=== PATIENT | female | born 1945 | race Caucasian/White ===

== ENCOUNTER 2016-11-13 13:38 | Inpatient (IN) ==
[2016-11-13] MEDS ORDERED: Naloxone 0.4 MG/ML INJ IVP PRN (17:48)
[2016-11-13] MEDS ORDERED: Acetaminophen 325 MG TABLET PO PRN (17:48)
--- NOTE | 2016-11-13 17:56 | Internal Med History&Physical ---
<Yulissa Clarke - Last Filed: 11/13/16 18:38> Date of Encounter: 11/13/16 Time of Encounter: 17:56 Assessment and Plan (1) Unresponsive episode Current visit: Yes Status: Acute 1patient was found down by home health aide for unknown amount of time. Upon arrival of EMS patient's 31 core temperature was 89. Lactate was 3.9 patient was given dextrose and was rewarmed in the ER. Presently core temperature 90.8 blood sugar 107. unresponsiveness related to hypoglycemic episode We will continue to monitor blood sugars 2we will consult social work lecturer concerns about patient's ability to care for herself. She is legally blind has difficulty ambulating some suspicion that patient is giving herself insulin- 3 patient's lactate was 3.9 continue to monitor 4 we will obtain CPK- (2) Hypoglycemia Current visit: Yes Status: Acute 1 hypoglycemia has improved we will continue to monitor blood sugars 2 Accu-Cheks per sliding scale for now (3) CAD (coronary artery disease) Current visit: No Status: Chronic 1 we will continue with aspirin, Plavix and statin beta crow Qualifiers: Coronary Disease-Associated Artery/Lesion type: [place] artery [place] vs. transplanted heart: [place] heart Associated angina: without angina Qualified Code(s): I25.10 - Atherosclerotic heart disease of [place] coronary artery without angina pectoris (4) Diabetes type I Current visit: No Status: Chronic 1 presently patient's creatinine is 1.08 unsure of baseline we will continue to monitor 2 we will avoid nephrotoxins 3 monitor intake and output and daily weights Qualifiers: Diabetes mellitus complication status: with kidney complications Diabetes mellitus complication detail: with chronic kidney disease Chronic kidney disease stage: stage 3 (moderate) Qualified Code(s): E10.22 - Type 1 diabetes mellitus with diabetic chronic kidney disease; N18.3 - Chronic kidney disease, stage 3 (moderate) (5) Hypertension Current visit: Yes Status: Acute 1 we will continue with home medications Qualifiers: Hypertension type: essential hypertension Qualified Code(s): I10 - Essential (primary) hypertension (6) CKD (chronic kidney disease), stage III Current visit: Yes Status: Acute (7) Hypothermia not due to cold exposure Current visit: No Status: Chronic 1 appears hypothermia has resolved we will continue to monitor temperature (8) DVT prophylaxis Current visit: Yes Status: Acute 1 heparin subcutaneous Internal Medicine - H&P: HPI Chief complaint: Hypoglycemia Admitted From: Hospital to Hospital Transfer Plans for Post Hospital Care: Home History of present illness: Ms. Wyatt is a 70 year old female past medical history of COPD C daily CVA diabetes type 1 hypertension thyroid disease coronary artery disease with 2 stent placement CKD patient was found unresponsive with a.m. by her home health nurse upon arrival of the fire department patient had a blood glucose of 32. She was given an amp of dextrose blood sugars increased to 107. She did arouse at that time and her was confused. She was transported to [facility] for further evaluation. According to the patient she recalls awakening approximately 3 AM to go to the bathroom she does not recall anything after that time until she was in the ER. Patient is type I diabetic she states that home health aides come twice a day to give her insulin. She states she took the adequate amount of insulin last night and had a proper meal. Prior to this incident patient has been her normal state of health. She does have some difficulty ambulating and uses a walker at tonsils unsteady on her feet. She denies any recent falls. Patient is legally blind unsure if patient is giving herself insulin. She made comments stating that she listens to the clicks on the pen to know the amount of insulin to give. According to ER records upon arrival patient's core temperature was 89.6 heart rate was 62 breast per 16 171/ 65. ABG revealed pH 7.3 PCO2 52 bicarbonate 30 patient excess 4.5. Patient lactate of 3.9 troponin was less than 0.056 creatinine was 1.08. Patient's blood sugar slowly dropping back down to 76 patient admitted for further evaluation. Family requesting patient transferred [facility]. Presently patient does not appear to be in any respiratory distress she denies any chest pain at this time. She is alert oriented all simple commands. Lungs sounds are clear throughout heart sounds S1 and S2 with no rubs Jasmin murmurs noted. She is hemodynamically stable at this time.I reviewed this case with DR Dupree who agrees with plan . Past Med Surg Social Fam HX - Past Medical History Medical history: arthritis, atrial fibrillation, COPD, coronary artery disease, CVA, diabetes, glaucoma, hyperlipidemia, hypertension, osteoporosis, peripheral artery disease, renal disease, thyroid disease, syncope, TIA Psychiatric history: no psych history - Past Surgical History Surgical History: angioplasty/stent, breast surgery, cataract, vascular surgery - Social History Smoking Status: Never smoker Smokeless Tobacco Status: No Alcohol use: none Drug use: none - Additional Family History Additional family history: Reviewed noncontributory Internal Medicine - H&P: Meds Allopurinol [Zyloprim 100 MG] 100 mg PO DAILY 08/14/16 [History] Cholecalciferol (Vitamin D3) [Vitamin D] 50,000 unit PO QWEEK 08/14/16 [History] Clopidogrel [Plavix] 75 mg PO DAILY 08/14/16 [History] Cyanocobalamin (B-12) [Vitamin B12] 1,000 mcg IM QMONTH 08/14/16 [History] Furosemide [Lasix] 40 mg PO BID 08/14/16 [History] Gabapentin [Neurontin] 300 mg PO HS 08/14/16 [History] Hydrocortisone [Cortef] 0.5 tab PO BID 08/14/16 [History] Insulin ASPART [Novolog Flexpen] 10 unit SQ TIDWM 08/14/16 [History] Insulin DETEMIR [Levemir Flextouch] 18 unit SQ BID 08/14/16 [History] Levothyroxine [Synthroid] 88 mcg PO DAILY 08/14/16 [History] Metoprolol XL (24 HR) Succ [Toprol XL] 50 mg PO DAILY 08/14/16 [History] Insulin Glargine,Hum.rec.anlog [Basaglar Kwikpen U-100] 16 unit SQ BID 11/13/16 [History] Latanoprost [Xalatan] 1 drop OP HS 11/13/16 [History] Allergies adhesive tape Allergy (Verified 11/10/15 14:40) Rash insulin isophane (NPH) [From Humulin 70/30] Allergy (Verified 11/10/15 14:40) See Comments Insulin Regular [From Humulin 70/30] Allergy (Verified 11/10/15 14:40) See Comments isosorbide [From Imdur] Allergy (Verified 11/10/15 14:40) See Comments lisinopril Allergy (Verified 11/10/15 14:40) Anaphylaxis Rwfsvnw-Vts-Bgf Reductase Inhibitor [Statins] Allergy (Verified 11/10/15 14:40) See Comments All Systems PM: A 10-system review of systems was performed and is negative for pertinent findings except as documented above in the HPI. - Constitutional Constitutional: no chills, no fever(s), no night sweats - EENT Eyes: loss of vision - Cardiovascular Cardiovascular ROS IM: edema, no chest pain, no diaphoresis, no dyspnea, no lightheadedness, no palpitations, no syncope - Respiratory Respiratory: no cough, no dyspnea, no wheezing, no excessive phlegm production - Gastrointestinal Gastrointestinal: no abdominal pain, no diarrhea, no hematemesis, no hematochezia, no melena, no nausea, no vomiting - Genitourinary Genitourinary: no change in urinary stream, no dysuria, no flank pain, no hematuria - Musculoskeletal Musculoskeletal ROS IM: no numbness, no tingling - Integumentary Integumentary IM: erythema, no rash, no unusual bruising - Neurological Neurological ROS: no confusion, no convulsions, no focal weakness, no numbness, no tingling, no tremor(s) - Constitutional Vitals: Temp Pulse Resp BP Pulse Ox 98.4 F 75 16 174/65 97 11/13/16 15:36 11/13/16 15:36 11/13/16 15:36 11/13/16 15:36 11/13/16 15:36 General appearance: Present: A&O X 3, answers questions appropriately - Head Head exam: Present: atraumatic, normocephalic - Eye Eye exam: Present: conjuntiva pink, sclera anicteric - Neck Neck exam general surgery: Present: supple, trachea midline. Absent: lymphadenopathy - Respiratory Respiratory exam: Present: CTAB. Absent: accessory muscle use, rales, rhonchi, wheezes - Cardiovascular Cardiovascular exam: Present: RRR, +S1, +S2. Absent: diastolic murmur, gallop, rubs, systolic murmur - GI/Abdominal GI/Abdominal exam: Present: normal bowel sounds, soft, no peritoneal signs. Absent: distended, tenderness - Extremities Exam Extremities exam: Present: pedal edema, warm, radial pulses palpable and symetrical. Absent: calf tenderness, cyanotic - Neurological Exam Neurological exam: Present: CN II-XII intact, oriented X3, no focal deficits. Absent: pronater drift, facial droop, speech deficit - Skin Skin exam: Present: dry, erythema, intact Internal Med - H&P Results - Labs Labs: Lab work per [facility] drawn at 11 AM 11/13/2016 PH 7.3 PCO2 52 bicarbonate 30.8 Chemistry sodium 145 potassium 3.7 chloride 105 CO2 27 BUN 2021.08 glucose 96 CBC WBC 8.7 hemoglobin 12.7 hematocrit 39 platelets 263 Lactate 3.9 CRP to BNP 934 troponin less than 0.056 - EKG Data EKG shows normal: sinus rhythm - Diagnostic Studies CT scan - head Additional comments: CT of head per radiology read 10/17 no acute findings Chest x-ray Additional comments: Chest x-ray per radiology reading 11/13/2016 Mild cardiomegaly pulmonary vascular prominence no gross focal consolidation or pleural effusion <Ap Negron - Last Filed: 11/13/16 18:48> Date of Encounter: 11/13/16 Internal Medicine - H&P: HPI History of present illness: Ms. Wyatt is a 70 year old female All Systems PM: A 10-system review of systems was performed and is negative for pertinent findings except as documented above in the HPI. - Constitutional Vitals: Temp Pulse Resp BP Pulse Ox 98.4 F 75 16 174/65 97 11/13/16 15:36 11/13/16 15:36 11/13/16 15:36 11/13/16 15:36 11/13/16 15:36 Internal Med - H&P Results - Labs Labs: Cardiac Enzymes 11/13/16 Range/Units 18:10 Troponin I 0.02 (0-0.03) ng/mL - Attending Attestation I examined this patient and my medical decision-making was reviewed with the Advanced Practice Nurse. I agree with the documented findings, disposition and treatment plan as described
[2016-11-13] MEDS ORDERED: D5% in Water 1,000 ML IVC PRN (17:59)
[2016-11-13] MEDS ORDERED: Dextrose Gel 15 GM PO PRN ×2 (17:59)
[2016-11-13] MEDS ORDERED: *HR* Dextrose 50 % in Water (Syg) 50 ML SYRINGE IVP PRN (17:59)
[2016-11-13] MEDS ORDERED: Latanoprost 2.5 ML BOTTLE RIGHT EYE SCH (21:00)
[2016-11-13] MEDS: Furosemide 40 MG TABLET PO SCH (21:33)
[2016-11-13] MEDS: Gabapentin 300 MG CAPSULE PO SCH (21:33)
[2016-11-13] MEDS: Insulin LISPRO 300 UNITS/3 ML VIAL SQ SCH (21:37)
[2016-11-13] MEDS: Hydrocortisone 10 MG TABLET PO SCH (23:27)
[2016-11-14 01:08] LABS: Basophils % 0.3 %; Eosinophils # 0.1 K/mcL (0.0-0.6); Eosinophils % 1.3 %; Hematocrit 31.1 % (35.3-44.9); Immature Granulocytes % 0.8 % (0-4); Lymphocytes # 1.6 K/mcL (0.6-4.6); Lymphocytes % 18.6 %; Mean Corpuscular HGB Conc 32.2 g/dL (31.6-35.5); Mean Corpuscular Hemoglobin 28.4 pg (28.0-33.3); Mean Corpuscular Volume 88.4 fL (83.0-100.0); Mean Platelet Volume 10.6 fL (9.4-12.4); Monocytes # 0.4 K/mcL (0.0-1.3); Monocytes % 4.6 %; Neutrophils # 6.5 K/mcL (1.6-8.9); Platelet Count 232 K/mcL (140-400); Red Blood Count 3.52 M/mcL (3.82-4.97); Red Cell Distribution Width 13.2 % (11.5-14.5); Segmented Neutrophils % 74.4 %
[2016-11-14 01:21] LABS: BUN/Creatinine Ratio 21 (6-26); Blood Urea Nitrogen 20 mg/dL (7-20); Carbon Dioxide 32 mEq/L (19-29); Chloride 107 mEq/L (98-109); Glucose 121 mg/dL (70-99); Magnesium 2.1 mg/dL (1.6-2.6); Osmolality,Calculated 306 (280-300); Potassium 3.6 mEq/L (3.5-4.5); Sodium 146 mEq/L (136-145); eGFR For African Americans > 60 (> 60); eGFR For Non-African Americans 57 (> 60)
[2016-11-14] MEDS: *HR* Heparin 5,000 UNIT/ML VIAL SQ SCH ×2 (06:15→17:05)
[2016-11-14] MEDS: Hydrocortisone 10 MG TABLET PO SCH (07:33)
[2016-11-14] MEDS: Insulin LISPRO 300 UNITS/3 ML VIAL SQ SCH ×4 (07:33→21:48)
[2016-11-14] MEDS: Furosemide 40 MG TABLET PO SCH (07:34)
[2016-11-14] MEDS ORDERED: Metoprolol XL (24 HR) Succ 50 MG TAB.ER.24H PO SCH (09:00)
[2016-11-14] MEDS ORDERED: *HR* Metoprolol 5 MG/5 ML VIAL IVP SCH (12:00)
--- NOTE | 2016-11-14 12:11 | Internal Med Progress Note ---
Date of Encounter: 11/14/16 Time of Encounter: 12:10 - Assessment and plan (1) Diabetes mellitus Current Visit: Yes Status: Acute Assessment and plan: Hypoglycemia resolved pt's mental status back to baseline HbA1C: 7.5, decreased from 9.2 in May 2016 Decreased home Levemir dosing to 16units qdaily from BID continue ss insulin algorithm monitor FS and BG will readjust insulin therapy prior to her discharge. Pt states her home health aid usually gives her day dosing of insulin and she administers her bedtime insulin reports of having FS of 120 the night of the hypoglycemic episode that happened laceworker ashish requested to maximize home health services. Will closely monitor BG Qualifiers: Diabetes mellitus type: type 2 Diabetes mellitus complication status: with unspecified complications Diabetes mellitus longterm insulin use: with regional intermodal truck driver use Qualified Code(s): E11.8 - Type 2 diabetes mellitus with unspecified complications; Z79.4 - intermodal owner operator truck driver (current) use of insulin (2) Hypoglycemia Current Visit: Yes Status: Resolved (3) CAD (coronary artery disease) Current Visit: No Status: Chronic Assessment and plan: will resume home meds once patients family brings them in Qualifiers: Coronary Disease-Associated Artery/Lesion type: [place] artery [place] vs. transplanted heart: [place] heart Associated angina: without angina Qualified Code(s): I25.10 - Atherosclerotic heart disease of [place] coronary artery without angina pectoris (4) Hypertension Current Visit: Yes Status: Chronic Assessment and plan: Lopressor IV and Hydralazine prn until patient's home meds are brought in, as she continues to refuse to take the generic medications we have available in the hospital pharmacy. Pt reports of having an anaphylactic reaction to the generic brands. Qualifiers: Hypertension type: essential hypertension Qualified Code(s): I10 - Essential (primary) hypertension (5) CKD (chronic kidney disease), stage III Current Visit: Yes Status: Chronic Assessment and plan: renal function at baseline will continue to monitor (6) DVT prophylaxis Current Visit: Yes Status: Acute Assessment and plan: Heparin SQ - Subjective Interval history: Patient was seen and examined at bedside. Patient currently awake alert oriented 3. Patient states she lives alone but is close to her son and [id number] and the hypoglycemic that happened prior to her hospitalization has happened twice in the last 7 years. She states she has a good amount of home health services and is close to family due to which she would not like to change her living arrangements and is refusing longterm or assisted care living facilities. she states she has been in good health prior to this episode. She has also been refusing medications due to the Hospital pharmacy not caring the brand that she prefers. Patient is advised to bring her home medications and they will be continued after verification. Reports of feeling well at this time and denies any discomfort. - Constitutional Vitals: Temp Pulse Resp BP Pulse Ox 97.9 F 78 14 191/71 94 11/14/16 11:22 11/14/16 11:22 11/14/16 11:22 11/14/16 11:22 11/14/16 11:22 General appearance: Present: cooperative, A&O X 3, morbidly obese, pleasant, no acute distress, answers questions appropriately - Head Head exam: Present: atraumatic, normocephalic - Eye Eye exam: Present: normal appearance, conjuntiva pink, sclera anicteric - Respiratory Respiratory exam: Present: CTAB. Absent: accessory muscle use, rales, rhonchi, wheezes - Cardiovascular Cardiovascular exam: Present: RRR, +S1, +S2 - GI/Abdominal GI/Abdominal exam: Present: normal bowel sounds, soft, no peritoneal signs. Absent: distended, tenderness - Extremities Exam Extremities exam: Present: pedal edema, warm, radial pulses palpable and symetrical. Absent: calf tenderness - Neurological Exam Neurological exam: Present: alert, oriented X3 - Psychiatric Psychiatric exam: Present: normal affect, normal mood Internal Medicine: Result - Labs CBC & Chem 7: 11/14/16 00:31 11/14/16 00:31 Labs: Short CBC 11/14/16 Range/Units 00:31 WBC 8.7 (4.3-11.1) K/mcL Hgb 10.0 L (11.5-15.4) g/dL Hct 31.1 L (35.3-44.9) % Plt Count 232 (140-400) K/mcL Neutrophils # 6.5 (1.6-8.9) K/mcL BMP 11/14/16 00:31 Sodium 146 H Potassium 3.6 Chloride 107 Carbon Dioxide 32 H BUN 20 Creatinine 0.96 Glucose 121 H Calcium 9.0 Cardiac Enzymes 11/13/16 11/14/16 Range/Units 18:10 00:31 Troponin I 0.02 0.02 (0-0.03) ng/mL Consult Discharge Plan - Plan Referrals: Cindy Yeager DO [Primary Care Provider] -
[2016-11-14 12:12] LABS: Hemoglobin A1C 7.5 %
[2016-11-14] MEDS: Insulin DETEMIR 100 UNIT/ML X5UNITS SQ SCH (13:54)
[2016-11-14] MEDS ORDERED: CYANOCOBALAMIN 1000 MCG/ML IM SCH (17:45)
[2016-11-14] MEDS ORDERED: TOPROL 50 MG PO SCH (17:45)
[2016-11-14] MEDS: LASIX 40 MG PO SCH (18:48)
[2016-11-14] MEDS: CORTEF PO SCH (21:47)
[2016-11-14] MEDS: Latanoprost 2.5 ML BOTTLE LEFT EYE SCH (21:48)
[2016-11-14] MEDS: Gabapentin 300 MG CAPSULE PO SCH (21:48)
[2016-11-15 03:42] LABS: Basophils % 0.4 %; Eosinophils # 0.3 K/mcL (0.0-0.6); Eosinophils % 2.7 %; Hematocrit 30.1 % (35.3-44.9); Hemoglobin 9.6 g/dL (11.5-15.4); Immature Granulocytes % 0.4 % (0-4); Lymphocytes # 1.8 K/mcL (0.6-4.6); Mean Corpuscular HGB Conc 31.9 g/dL (31.6-35.5); Mean Corpuscular Hemoglobin 28.6 pg (28.0-33.3); Mean Corpuscular Volume 89.6 fL (83.0-100.0); Mean Platelet Volume 10.4 fL (9.4-12.4); Monocytes # 0.6 K/mcL (0.0-1.3); Monocytes % 6.5 %; Neutrophils # 6.5 K/mcL (1.6-8.9); Platelet Count 220 K/mcL (140-400); Red Blood Count 3.36 M/mcL (3.82-4.97); Red Cell Distribution Width 13.3 % (11.5-14.5)
[2016-11-15 03:55] LABS: Calcium 8.7 mg/dL (8.6-10.8); Magnesium 1.9 mg/dL (1.6-2.6); Phosphorous 3.6 mg/dL (2.3-4.7); Potassium 3.8 mEq/L (3.5-4.5)
[2016-11-15] MEDS: *HR* Heparin 5,000 UNIT/ML VIAL SQ SCH ×2 (05:50→17:11)
[2016-11-15] MEDS ORDERED: SYNTHROID 88 MCG PO SCH (06:30)
[2016-11-15] MEDS: Insulin LISPRO 300 UNITS/3 ML VIAL SQ SCH ×4 (08:07→20:49)
[2016-11-15] MEDS: LASIX 40 MG PO SCH ×2 (08:09→17:11)
[2016-11-15] MEDS: CORTEF PO SCH ×2 (08:10→20:58)
[2016-11-15] MEDS: Insulin DETEMIR 100 UNIT/ML X5UNITS SQ SCH (08:20)
[2016-11-15] MEDS ORDERED: PLAVIX 75 MG PO SCH (09:00)
[2016-11-15] MEDS ORDERED: Insulin DETEMIR 100 UNIT/ML X5UNITS SQ ONE (12:10)
--- NOTE | 2016-11-15 14:50 | Internal Med Progress Note ---
Date of Encounter: 11/15/16 Time of Encounter: 14:47 - Assessment and plan (1) Diabetes mellitus Current Visit: Yes Status: Acute Assessment and plan: Hypoglycemia resolved pt's mental status back to baseline HbA1C: 7.5, decreased from 9.2 in May 2016 Adjusted Levemir dosing as per her insulin requirements continue ss insulin algorithm monitor FS and BG will readjust insulin therapy prior to her discharge. Pt states her home health aid usually gives her day dosing of insulin and she administers her bedtime insulin gas plant worker lizal on board to maximize home health services. 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 transplanted heart: [place] heart Associated angina: without angina Qualified Code(s): I25.10 - Atherosclerotic heart disease of [place] coronary artery without angina pectoris (4) Hypertension Current Visit: Yes Status: Chronic Assessment and plan: Restarted home meds Hydralazine 10mg IV q6h PRN SBP>160 Qualifiers: Hypertension type: essential hypertension Qualified Code(s): I10 - Essential (primary) hypertension (5) CKD (chronic kidney disease), stage III Current Visit: Yes Status: Chronic Assessment and plan: renal function at baseline will continue to monitor (6) DVT prophylaxis Current Visit: Yes Status: Acute Assessment and plan: Heparin SQ - Subjective Interval history: Patient was seen and examined at bedside. Reports of feeling significantly better. Good urine output noted and she reports of having difficulty with urinating at home. will d/c arnold catheter. If fails to appropriately void, patient will be discharged with arnold cath noted to be hyperglycemic, insulin regimen adjusted accordingly will observe BG for another 24 hours likely d/c in am - Constitutional Vitals: Temp Pulse Resp BP Pulse Ox 98.3 F 72 16 179/74 96 11/15/16 11:04 11/15/16 11:04 11/15/16 11:04 11/15/16 11:04 11/15/16 11:04 General appearance: Present: cooperative, A&O X 3, morbidly obese, pleasant, no acute distress, answers questions appropriately - Head Head exam: Present: atraumatic, normocephalic - Eye Eye exam: Present: normal appearance, conjuntiva pink, sclera anicteric - Respiratory Respiratory exam: Present: CTAB. Absent: respiratory distress, wheezes - Cardiovascular Cardiovascular exam: Present: RRR, +S1, +S2. Absent: diastolic murmur, gallop, rubs, systolic murmur - GI/Abdominal GI/Abdominal exam: Present: normal bowel sounds, soft, no peritoneal signs. Absent: distended, tenderness - Extremities Exam Extremities exam: Present: pedal edema, warm, radial pulses palpable and symetrical. Absent: calf tenderness - Neurological Exam Neurological exam: Present: alert, oriented X3 - Psychiatric Psychiatric exam: Present: normal affect, normal mood Internal Medicine: Result - Labs CBC & Chem 7: 11/15/16 03:29 11/15/16 03:29 Labs: Short CBC 11/15/16 Range/Units 03:29 WBC 9.2 (4.3-11.1) K/mcL Hgb 9.6 L (11.5-15.4) g/dL Hct 30.1 L (35.3-44.9) % Plt Count 220 (140-400) K/mcL Neutrophils # 6.5 (1.6-8.9) K/mcL BMP 11/15/16 03:29 Sodium 140 Potassium 3.8 Chloride 102 Carbon Dioxide 31 H BUN 29 H Creatinine 1.27 H Glucose 266 H Calcium 8.7 Consult Discharge Plan - Plan Referrals: Cindy Yeager DO [Primary Care Provider] - (web request 11/14/16)
[2016-11-15] MEDS: TOPROL 50 MG PO SCH (20:59)
[2016-11-15] MEDS: Gabapentin 300 MG CAPSULE PO SCH (20:59)
[2016-11-15] MEDS: Sennosides/Docusate Sodium TABLET PO SCH (20:59)
[2016-11-15] MEDS: PLAVIX 75 MG PO SCH (20:59)
[2016-11-15] MEDS: Latanoprost 2.5 ML BOTTLE LEFT EYE SCH (21:00)
[2016-11-16 03:27] LABS: Basophils % 0.5 %; Eosinophils # 0.2 K/mcL (0.0-0.6); Eosinophils % 2.6 %; Hematocrit 28.9 % (35.3-44.9); Hemoglobin 9.1 g/dL (11.5-15.4); Immature Granulocytes % 0.8 % (0-4); Lymphocytes # 1.8 K/mcL (0.6-4.6); Lymphocytes % 20.2 %; Mean Corpuscular HGB Conc 31.5 g/dL (31.6-35.5); Mean Corpuscular Volume 88.9 fL (83.0-100.0); Mean Platelet Volume 10.6 fL (9.4-12.4); Monocytes # 0.7 K/mcL (0.0-1.3); Monocytes % 7.5 %; Neutrophils # 5.9 K/mcL (1.6-8.9); Platelet Count 221 K/mcL (140-400); Red Blood Count 3.25 M/mcL (3.82-4.97); Red Cell Distribution Width 13.2 % (11.5-14.5); Segmented Neutrophils % 68.4 %
[2016-11-16 03:34] LABS: Calcium 8.8 mg/dL (8.6-10.8); Magnesium 2.1 mg/dL (1.6-2.6); Phosphorous 4.1 mg/dL (2.3-4.7); Potassium 3.7 mEq/L (3.5-4.5)
[2016-11-16] MEDS: *HR* Heparin 5,000 UNIT/ML VIAL SQ SCH ×2 (05:46→16:15)
[2016-11-16] MEDS: SYNTHROID 88 MCG PO SCH (05:47)
[2016-11-16] MEDS: Sennosides/Docusate Sodium TABLET PO SCH ×2 (07:43→21:15)
[2016-11-16] MEDS: Insulin LISPRO 300 UNITS/3 ML VIAL SQ SCH ×4 (07:43→21:18)
[2016-11-16] MEDS: CORTEF PO SCH ×2 (07:44→21:17)
[2016-11-16] MEDS: LASIX 40 MG PO SCH (07:44)
[2016-11-16] MEDS ORDERED: Cyanocobalamin (B-12) 1,000 MCG/ML VIAL IM SCH ×2 (09:00)
[2016-11-16] MEDS ORDERED: Insulin DETEMIR 100 UNIT/ML X5UNITS SQ SCH (09:00)
--- NOTE | 2016-11-16 09:55 | Internal Med Progress Note ---
Date of Encounter: 11/16/16 Time of Encounter: 09:54 - Assessment and plan (1) Diabetes mellitus Current Visit: Yes Status: Acute Assessment and plan: Hypoglycemia resolved pt's mental status back to baseline HbA1C: 7.5, decreased from 9.2 in May 2016 Adjusted Levemir dosing as per her insulin requirements (increased to Levemir 40units qdaily) continue ss insulin algorithm monitor FS and BG will readjust insulin therapy prior to her discharge. Pt states her home health aid usually gives her day dosing of insulin and she administers her bedtime insulin brush worker ashish on board, ECF placement process initiated Will closely monitor BG Qualifiers: Diabetes mellitus type: type 2 Diabetes mellitus complication status: with unspecified complications Diabetes mellitus assistant terminal manager insulin use: with skilled nursing use Qualified Code(s): E11.8 - Type 2 diabetes mellitus with unspecified complications; Z79.4 - half-way (current) use of insulin (2) Hypoglycemia Current Visit: Yes Status: Resolved (3) CAD (coronary artery disease) Current Visit: No Status: Chronic Assessment and plan: continue home medications Qualifiers: Coronary Disease-Associated Artery/Lesion type: [place] artery [place] vs. transplanted heart: [place] heart Associated angina: without angina Qualified Code(s): I25.10 - Atherosclerotic heart disease of [place] coronary artery without angina pectoris (4) Hypertension Current Visit: Yes Status: Chronic Assessment and plan: BP within acceptable range continue home meds Hydralazine 10mg IV q6h PRN SBP>160 Qualifiers: Hypertension type: essential hypertension Qualified Code(s): I10 - Essential (primary) hypertension (5) CKD (chronic kidney disease), stage III Current Visit: Yes Status: Chronic Assessment and plan: renal function worsened from previous day will hold Lasix at this time patients urinary retention can also be contributing to her renal function will closely monitor Arnold placement if patient is unable to void or noted to have high post voidal volume on bladder scan (6) DVT prophylaxis Current Visit: Yes Status: Acute Assessment and plan: Heparin SQ - Subjective Interval history: Patient was seen and examined at bedside. Resting in chair and reports of feeling better. Noted to have urinary retention overnight requiring straight catheterization. Will closely monitor today, if unable to void adequately, will place arnold cath. Noted to be hyperglycemic requiring 36units of additional insulin coverage. Pt will to consider ECF at this time. delinquency prevention social worker evaluation requested for ECF placement - Constitutional Vitals: Temp Pulse Resp BP Pulse Ox 99.0 F 70 16 150/73 92 11/16/16 07:24 11/16/16 07:24 11/16/16 07:24 11/16/16 07:24 11/16/16 07:24 General appearance: Present: cooperative, A&O X 3, morbidly obese, pleasant, no acute distress, answers questions appropriately - Head Head exam: Present: atraumatic, normocephalic - Respiratory Respiratory exam: Present: CTAB. Absent: respiratory distress, wheezes - Cardiovascular Cardiovascular exam: Present: RRR, +S1, +S2 - GI/Abdominal GI/Abdominal exam: Present: normal bowel sounds, soft. Absent: tenderness - Extremities Exam Extremities exam: Present: pedal edema, warm, radial pulses palpable and symetrical. Absent: calf tenderness - Neurological Exam Neurological exam: Present: alert, oriented X3 - Psychiatric Psychiatric exam: Present: normal affect, normal mood Internal Medicine: Result - Labs CBC & Chem 7: 11/16/16 03:00 11/16/16 03:00 Labs: Short CBC 11/16/16 Range/Units 03:00 WBC 8.7 (4.3-11.1) K/mcL Hgb 9.1 L (11.5-15.4) g/dL Hct 28.9 L (35.3-44.9) % Plt Count 221 (140-400) K/mcL Neutrophils # 5.9 (1.6-8.9) K/mcL BMP 11/16/16 03:00 Sodium 142 Potassium 3.7 Chloride 101 Carbon Dioxide 32 H BUN 38 H Creatinine 1.52 H Glucose 200 H Calcium 8.8 Consult Discharge Plan - Plan Referrals: Cindy Yeager DO [Primary Care Provider] - 11/21/16 1:00 pm (web request )
[2016-11-16] MEDS: Insulin DETEMIR 100 UNIT/ML X5UNITS SQ SCH (09:56)
[2016-11-16] MEDS: Gabapentin 300 MG CAPSULE PO SCH (21:16)
[2016-11-16] MEDS: PLAVIX 75 MG PO SCH (21:17)
[2016-11-16] MEDS: Latanoprost 2.5 ML BOTTLE LEFT EYE SCH (21:21)
[2016-11-16] MEDS: TOPROL 50 MG PO SCH (21:22)
[2016-11-17] MEDS: SYNTHROID 88 MCG PO SCH (05:38)
[2016-11-17] MEDS: *HR* Heparin 5,000 UNIT/ML VIAL SQ SCH (05:38)
[2016-11-17 06:55] LABS: Basophils # 0.1 K/mcL (0.0-0.2); Basophils % 0.5 %; Eosinophils # 0.2 K/mcL (0.0-0.6); Eosinophils % 2.5 %; Hematocrit 29.1 % (35.3-44.9); Hemoglobin 9.4 g/dL (11.5-15.4); Immature Granulocytes % 0.7 % (0-4); Lymphocytes # 1.8 K/mcL (0.6-4.6); Lymphocytes % 18.7 %; Mean Corpuscular HGB Conc 32.3 g/dL (31.6-35.5); Mean Corpuscular Hemoglobin 28.7 pg (28.0-33.3); Mean Corpuscular Volume 88.7 fL (83.0-100.0); Mean Platelet Volume 10.7 fL (9.4-12.4); Monocytes # 0.7 K/mcL (0.0-1.3); Monocytes % 7.6 %; Neutrophils # 6.7 K/mcL (1.6-8.9); Platelet Count 222 K/mcL (140-400); Red Blood Count 3.28 M/mcL (3.82-4.97); Red Cell Distribution Width 13.3 % (11.5-14.5)
[2016-11-17 07:09] LABS: Calcium 8.7 mg/dL (8.6-10.8); Magnesium 2.1 mg/dL (1.6-2.6); Potassium 3.5 mEq/L (3.5-4.5)
[2016-11-17] MEDS: Insulin LISPRO 300 UNITS/3 ML VIAL SQ SCH ×2 (08:25→11:07)
[2016-11-17] MEDS: Insulin DETEMIR 100 UNIT/ML X5UNITS SQ SCH (08:26)
[2016-11-17] MEDS: CORTEF PO SCH (08:26)
[2016-11-17] MEDS: Sennosides/Docusate Sodium TABLET PO SCH (08:26)
[2016-11-17] MEDS ORDERED: Insulin DETEMIR 100 UNIT/ML X5UNITS SQ ONE (08:43)
[2016-11-17] MEDS ORDERED: LASIX 40 MG PO SCH (09:00)
--- NOTE | 2016-11-17 12:51 | Discharge Summary ---
Date of Encounter: 11/17/16 Time of Encounter: 12:47 - Discharge Diagnosis (1) Diabetes mellitus Priority: Primary Status: Acute Qualifiers: Diabetes mellitus type: type 2 Diabetes mellitus complication status: with unspecified complications Diabetes mellitus correspondence analyst insulin use: with prison use Qualified Code(s): E11.8 - Type 2 diabetes mellitus with unspecified complications; Z79.4 - residential (current) use of insulin (2) Hypoglycemia Priority: Primary Status: Resolved (3) CAD (coronary artery disease) Priority: Secondary Status: Chronic Qualifiers: Coronary Disease-Associated Artery/Lesion type: [place] artery [place] vs. transplanted heart: [place] heart Associated angina: without angina Qualified Code(s): I25.10 - Atherosclerotic heart disease of [place] coronary artery without angina pectoris (4) Hypertension Priority: Secondary Status: Chronic Qualifiers: Hypertension type: essential hypertension Qualified Code(s): I10 - Essential (primary) hypertension (5) CKD (chronic kidney disease), stage III Priority: Secondary Status: Chronic (6) DVT prophylaxis Priority: Secondary Status: Acute - Discharge Medications Home Medications: RX: Allopurinol [Zyloprim 100 MG] 100 mg PO DAILY 08/14/16 [History] RX: Cholecalciferol (Vitamin D3) [Vitamin D3] 50,000 unit PO MO 08/14/16 [ History] RX: Clopidogrel [Plavix] 75 mg PO DAILY 08/14/16 [History] RX: Cyanocobalamin (B-12) [Vitamin B12] 1,000 mcg IM QMONTH 08/14/16 [History] RX: Furosemide [Lasix] 40 mg PO BID 08/14/16 [History] RX: Gabapentin [Neurontin] 300 mg PO HS 08/14/16 [History] RX: Hydrocortisone [Cortef] 2.5 tab PO BID 08/14/16 [History] RX: Levothyroxine [Synthroid] 88 mcg PO DAILY 08/14/16 [History] RX: Metoprolol XL (24 HR) Succ [Toprol Xl] 50 mg PO DAILY 08/14/16 [History] RX: Latanoprost [Xalatan] 1 drop LEFT EYE HS 11/13/16 [History] RX: Insulin Glargine,Hum.rec.anlog [Basaglcristina Hernandezikpen U-100] 50 unit SQ DAILY #0 11/17/16 [Rx] RX: Insulin LISPRO [HumaLOG] 0 units SQ HS vial 11/17/16 [Rx] RX: Insulin LISPRO [HumaLOG] 0 units SQ TIDAC vial 11/17/16 [Rx] RX: Sennosides/Docusate Sodium [Senna Plus] 2 each PO BID PRN #30 tablet [Rx] Allergies/Adverse Reactions: Allergies adhesive tape Allergy (Verified 11/10/15 14:40) Rash insulin isophane (NPH) [From Humulin 70/30] Allergy (Verified 11/10/15 14:40) See Comments Insulin Regular [From Humulin 70/30] Allergy (Verified 11/10/15 14:40) See Comments isosorbide [From Imdur] Allergy (Verified 11/10/15 14:40) See Comments lisinopril Allergy (Verified 11/10/15 14:40) Anaphylaxis Mqjzfgr-Rha-Joh Reductase Inhibitor [Statins] Allergy (Verified 11/10/15 14:40) See Comments Date of admission: 11/14/16 17:50 Primary care physician: Arielle Ma Consults: 11/13/16 17:07 Consult to Nutrition [CONS] Routine Comment: Consulting Provider: NUTRITION Reason for Dietary Consult: MST Score 11/13/16 17:52 Consult to Occupational Therapy [CONS] Routine Comment: Evaluate, develop and implement POC Reason for Consult: patient legally blind unsteady and lives alone Consult to Physical Therapy [CONS] Routine Comment: Evaluate, develop and implement POC Reason for Consult: patient leaglly blind unsteady and lives alone Consult to Fraud Investigator [CONS] Routine Reason for SW Consult: discharge planning Discharging clinician: Joanie Rogers Anticipated date of discharge: 11/17/16 - Patient Status Disposition: Transfer SNF Condition: Good Functional capacity at discharge: uses cane/walker Overall status at discharge: patient is back to baseline - Discharge Instructions Follow Up With: Cindy Yeager DO [Primary Care Provider] - 11/21/16 1:00 pm (web request ) Additional Instructions: Request sent to Urology. They will be calling with an appointment date and time. follow up with urology after discharge. Follow up with your primary care physician within one week after your discharge Your home dose of basal insulin has been changed to 50 units daily. please take this medication as prescribed. Your premeal insulin has been discontinued. ONly continue sliding scale insulin. monitor fingerstick glucose closely Resume home meds as per your primary care physician. - Diet and Activity Activity: as per physical therapy Diet: diabetic diet, low fat, low cholesterol Hospital course: Ms. Wyatt is a 70 year old female with PMH of COPD, DM,CHF, CAD, CAD, HTN who was admitted for change in mental status secondary to severe hypoglycemia. Patient is reported to be legally blind and lives alone. She states she has home health services on a daily basis but only until 5-6pm due to which she has to give herself the bedtime insulin dosing. Given her vision and frail status, it is unsafe for patient to be discharged to home by herself. Physical therapy evaluation recommended ECF placement. Patient was also noted to have urinary retention due to which a arnold catheter was placed. She will be discharged to ECF with arnold cath with follow up with urology. Patient's hypoglycemia has resolved and her home dose of insulin has been readjusted. Patient will be discharged to ECF today, with follow up with PCP and urology. Pt demonstrates understanding of her diagnosis and agrees with the discharge care and plan. - Time Spent with Patient Total time spent providing and/or coordinating discharge services: Less than 30 minutes - Constitutional Vitals: Temp Pulse Resp BP Pulse Ox 99 F 74 18 153/60 90 11/17/16 10:58 11/17/16 10:58 11/17/16 10:58 11/17/16 10:58 11/17/16 10:58 General appearance: Present: cooperative, A&O X 3, morbidly obese, pleasant, no acute distress, answers questions appropriately - Head Head exam: Present: atraumatic, normocephalic - Eye Eye exam: Present: normal appearance, conjuntiva pink, sclera anicteric - Respiratory Respiratory exam: Absent: respiratory distress, wheezes - Cardiovascular Cardiovascular exam: Present: RRR, +S1, +S2 - GI/Abdominal GI/Abdominal exam: Present: normal bowel sounds, soft, no peritoneal signs. Absent: distended, tenderness - Extremities Exam Extremities exam: Present: pedal edema, warm, radial pulses palpable and symetrical. Absent: calf tenderness - Neurological Exam Neurological exam: Present: alert, oriented X3 - Psychiatric Psychiatric exam: Present: normal affect, normal mood
[2016-11-17 12:56] VITALS: BP 146/69
--- NOTE | 2016-11-17 12:59 | Physician Discharge Referral ---
ExtendedCare Referral Info Transfer To: ECF Provider in Charge after Transfer: PCP - Diagnosis (1) Diabetes mellitus Priority: Primary Status: Acute (2) Hypoglycemia Priority: Primary Status: Resolved (3) CAD (coronary artery disease) Priority: Secondary Status: Chronic (4) Hypertension Priority: Secondary Status: Chronic (5) CKD (chronic kidney disease), stage III Priority: Secondary Status: Chronic (6) DVT prophylaxis Priority: Secondary Status: Acute - Transfer Medications Home Medications: Allopurinol [Zyloprim 100 MG] 100 mg PO DAILY 08/14/16 [History] Cholecalciferol (Vitamin D3) [Vitamin D3] 50,000 unit PO MO 08/14/16 [History] Clopidogrel [Plavix] 75 mg PO DAILY 08/14/16 [History] Cyanocobalamin (B-12) [Vitamin B12] 1,000 mcg IM QMONTH 08/14/16 [History] Furosemide [Lasix] 40 mg PO BID 08/14/16 [History] Gabapentin [Neurontin] 300 mg PO HS 08/14/16 [History] Hydrocortisone [Cortef] 2.5 tab PO BID 08/14/16 [History] Levothyroxine [Synthroid] 88 mcg PO DAILY 08/14/16 [History] Metoprolol XL (24 HR) Succ [Toprol Xl] 50 mg PO DAILY 08/14/16 [History] Latanoprost [Xalatan] 1 drop LEFT EYE HS 11/13/16 [History] Insulin Glargine,Hum.rec.anlog [Basaglar Kwikpen U-100] 50 unit SQ DAILY #0 08/31 [Rx] Insulin LISPRO [HumaLOG] 0 units SQ HS vial 11/17/16 [Rx] Insulin LISPRO [HumaLOG] 0 units SQ TIDAC vial 11/17/16 [Rx] Sennosides/Docusate Sodium [Senna Plus] 2 each PO BID PRN #30 tablet 11/17/16 [ Rx] Allergies/Adverse Reactions: Allergies adhesive tape Allergy (Verified 11/10/15 14:40) Rash insulin isophane (NPH) [From Humulin 70/30] Allergy (Verified 11/10/15 14:40) See Comments Insulin Regular [From Humulin 70/30] Allergy (Verified 11/10/15 14:40) See Comments isosorbide [From Imdur] Allergy (Verified 11/10/15 14:40) See Comments lisinopril Allergy (Verified 11/10/15 14:40) Anaphylaxis Jghycdi-Kbn-Ojr Reductase Inhibitor [Statins] Allergy (Verified 11/10/15 14:40) See Comments - Respiratory Orders Smoking Cessation: Smoking cessation has been advised. For more information, call the [place] Tobacco Quit Line at 7-585-RDMS-NOW. - Treatments List/Other: Request sent to Urology. They will be calling with an appointment date and time. follow up with urology after discharge. Follow up with your primary care physician within one week after your discharge Your home dose of basal insulin has been changed to 50 units daily. please take this medication as prescribed. Your premeal insulin has been discontinued. ONly continue sliding scale insulin. monitor fingerstick glucose closely Resume home meds as per your primary care physician. CERTIFICATION: I certify that the transfer of the above named patient to an Extended Care Facility is necessary for the continuing treatment of the diagnosis listed. The above information is true and accurate reflection of patient's current condition. Confidential - Redisclosure prohibited without a patient's written consent.
[2016-11-18] MEDS ORDERED: Insulin DETEMIR 100 UNIT/ML X5UNITS SQ SCH (09:00)
== END 2016-11-17 15:50 | DRG 638 ==
LOC: 2ANU
PROVIDERS: ADMIT Internal Medicine; ATTEND Internal Medicine

== ENCOUNTER 2017-03-11 06:15 | Observation (INO) ==
[2017-03-11] MEDS ORDERED: Lidocaine -MPF 1% 2 ML VIAL ID ONE (06:34)
[2017-03-11] MEDS: 0.9 % Sodium Chloride 500 ML IVC SCH (07:34)
[2017-03-11] MEDS ORDERED: Simethicone 40 MG/0.6 ML MLS IR ONE (07:35)
--- NOTE | 2017-03-11 07:37 | Anesthesia Evaluation PreOp ---
Date of Encounter: 03/11/17 Time of Encounter: 07:34 - Past History Planned Operation: Colonoscopy Cardiac History: HTN, Hyperlipidemia, Cardiac Stent Pulmonary History: Other (reactive airway disease; supplemental oxygen at home prn) Other Medical History: Renal (ckd), Diabetes Type I (poorly controlled), Other ( secondary adrenal insufficiency) Anesthesia History: Problems (slow to emerge, hypoglycemia gayle-operatively) Alcohol Use: none Drug use: none Medications and Allergies Cholecalciferol (Vitamin D3) [Vitamin D3] 50,000 unit PO MO 08/14/16 [History] Clopidogrel [Plavix] 75 mg PO HS 08/14/16 [History] Cyanocobalamin (B-12) [Vitamin B12] 1,000 mcg IM QMONTH 08/14/16 [History] Furosemide [Lasix] 40 mg PO BID 08/14/16 [History] Hydrocortisone [Cortef] 2.5 tab PO BID 08/14/16 [History] Levothyroxine [Synthroid] 88 mcg PO DAILY 08/14/16 [History] Metoprolol XL (24 HR) Succ [Toprol Xl] 50 mg PO DAILY 08/14/16 [History] Latanoprost [Xalatan] 1 drop LEFT EYE HS 11/13/16 [History] Insulin ASPART [Novolog] 10 - 12 unit SQ TID 01/21/17 [History] Insulin Degludec [Tresiba Flextouch U-100] 20 unit SQ HS 03/11/17 [History] Losartan Potassium [Cozaar] 50 mg PO DAILY 03/11/17 [History] Multivitamin [One Daily Multivitamin] 1 tab PO DAILY 03/11/17 [History] 3 Allergy/AdvReac Type Severity Reaction Status Date / Time adhesive tape Allergy Rash Verified 03/11/17 07:07 insulin isophane (NPH) Allergy Rash Verified 03/11/17 07:07 [From Humulin 70/30] Insulin Regular Allergy Rash Verified 03/11/17 07:07 [From Humulin 70/30] isosorbide [From Imdur] Allergy Rash Verified 03/11/17 07:07 lisinopril Allergy Anaphylaxis Verified 03/11/17 07:07 Xiacfhp-Cfm-Kzt Reductase Allergy Muscle Pain Verified 03/11/17 07:07 Inhibitor [Statins] - Meds/Allergy Pre-op Review Medications Reviewed: Yes Allergies Reviewed: Yes Beta Blockers on Current Med List: Yes If Beta Blockers taken, Date/Time (Last Dose taken): did not take beta crow for 3 days - will continue to hold Anesthesia Results - Labs Laboratory Tests 11/14/16 11/17/16 12/07/16 00:31 11:01 10:00 WBC Hgb Hct Plt Count Sodium 142 Potassium 4.5 Chloride 104 Carbon Dioxide 26 BUN 22 H Creatinine 1.19 H Est GFR ( Amer) 54 L Est GFR (Non-Af Amer) 45 L BUN/Creatinine Ratio 18 Glucose 211 H POC Glucose 222 H Est Mean Plasma Glucose 169 Hemoglobin A1c 7.5 H 01/21/17 15:48 WBC 6.8 Hgb 10.8 L Hct 32.8 L Plt Count 205 Sodium Potassium Chloride Carbon Dioxide BUN Creatinine Est GFR ( Amer) Est GFR (Non-Af Amer) BUN/Creatinine Ratio Glucose POC Glucose Est Mean Plasma Glucose Hemoglobin A1c Anesthesia Exam Last Vital Signs Temp 97.9 F 03/11/17 06:57 Pulse 80 03/11/17 06:57 Resp 18 03/11/17 06:57 BP 166/67 03/11/17 06:57 Pulse Ox 97 03/11/17 06:57 Weight: 84 kg NPO (# of Hours): >> 8 hrs - HEENT Pupil (Motor): Pupils equal, EOMI Mallampati: III Teeth: Poor dentition Oral Opening: Greater than 3 - DIRECTOR BIOLOGICS LOC: Oriented - Cardiac Rhythm: Regular Murmur: None - Pulmonary Breath Sounds: bilateral Clear Respiratory Effort: Symmetrical Anesthesia Assess/Plan ASA Score: 4 Modified Lucas Scale for Level of Consciousness: Cooperative, oriented, and tranquil Anesthetic Plan: MAC Monitoring Plan: Standard Monitors Recovery Plan: PACU
[2017-03-11] MEDS ORDERED: D5% in Water 1,000 ML IVC PRN (08:30)
[2017-03-11] MEDS ORDERED: Dextrose Gel 15 GM PO PRN ×2 (08:30)
[2017-03-11] MEDS ORDERED: *HR* Dextrose 50 % in Water (Syg) 50 ML SYRINGE IVP PRN (08:30)
[2017-03-11] MEDS: Hydrocortisone 10 MG TABLET PO SCH ×2 (09:49→21:08)
[2017-03-11] MEDS: Metoprolol XL (24 HR) Succ 50 MG TAB.ER.24H PO SCH (09:50)
[2017-03-11] MEDS: Insulin LISPRO 300 UNITS/3 ML VIAL SQ SCH ×2 (09:51→12:49)
--- NOTE | 2017-03-11 12:08 | Electrocardiograph Report ---
[address] [place] [address] Test Date: 2017-03-11 Pat Name: Lina Wyatt Department: 106 Room: Gender: F Band Sewer: OSEAS : 1945 Requested By: Elida Braun Order Number: [id number] Reading MD: Kay Mosqueda Measurements Intervals [place] Rate: 78 P: 41 VA: 181 QRS: 15 QRSD: 91 T: 180 QT: 408 QTc: 441 Interpretive Statements SINUS RHYTHM DIFFUSE NONSPECIFIC ST-T ABNORMALITY Electronically Signed On 03-11-2017 12:06:44 EDT by Kay Mosqueda
[2017-03-11] MEDS: Furosemide 40 MG TABLET PO SCH (16:06)
[2017-03-11] MEDS: TRESIBA U SQ SCH (21:09)
[2017-03-11] MEDS: Latanoprost 2.5 ML BOTTLE LEFT EYE SCH (21:42)
[2017-03-12] MEDS: Hydrocortisone 10 MG TABLET PO SCH ×2 (07:46→21:43)
[2017-03-12] MEDS: Furosemide 40 MG TABLET PO SCH ×2 (07:50→17:29)
[2017-03-12] MEDS: Metoprolol XL (24 HR) Succ 50 MG TAB.ER.24H PO SCH (07:50)
[2017-03-12] MEDS: Insulin LISPRO 300 UNITS/3 ML VIAL SQ SCH ×6 (08:10→17:31)
[2017-03-12] MEDS ORDERED: Insulin DETEMIR 100 UNIT/ML X5UNITS SQ ONE (09:31)
[2017-03-12] MEDS ORDERED: *HR* Metoprolol 5 MG/5 ML VIAL IVP PRN (13:30)
--- NOTE | 2017-03-12 14:46 | General Surgery Progress Note ---
<Lizbeth Wong - Last Filed: 03/12/17 14:47> Date of Encounter: 03/12/17 Time of Encounter: 09:00 - Assessment and Plan (1) S/P colonoscopy Current Visit: Yes Status: Acute PT had colonoscopy on 03/11/2017 and had MAC. She had no one to stay with her and was admitted as outpatient in a bed. She denies n/v/d. She lost IV access yesterday and we did not replace IV as she was expected to be d/c. Her glucose is not controlled and she will remain in the hospital pending control. She takes Tresiba at home, but that is not available to us at this time. She also states she has an appointment with a new behavioral health director in March. -Add Levimir 20 units now and at HS -Continue SSI Will plan for d/c in the next 24-48 pending glucose control Late Entry: fall was reported. Pt denied discomfort initially, but states she is having hip discomfort. will obtain hip x-ray. (2) Diabetes mellitus Current Visit: Yes Status: Acute See above Qualifiers: Diabetes mellitus type: type 1 Diabetes mellitus complication status: with unspecified complications Qualified Code(s): E10.8 - Type 1 diabetes mellitus with unspecified complications (3) DVT prophylaxis Current Visit: No Status: Acute She is on Plavix No indication for mechanical DVT prophylaxis at this time. will continue to monitor. Subjective Patient reports: no new complaints, feels better, tolerating liquids well, voiding w/o difficulty Objective Vital Signs - Last 8 Hours Temp Pulse Resp BP Pulse Ox 03/12/17 09:20 97.7 F 80 18 147/68 97 03/12/17 07:05 98.6 F 90 16 175/71 93 Intake and Output 03/11/17 03/12/17 03/12/17 23:59 07:59 15:59 Intake Total 0 / 0 0 / 0 Output Total 0 / 0 2049 900 / 900 Balance 0 / 0 -2049 / -2049 - / -900 Intake: Oral 0 / 0 0 / 0 Output: Urine 0 / 0 2049 900 / 900 Other: Weight 84.2 kg Blood Glucose* 388 307 Patient Weight 03/12/17 23:59 Weight 84.2 kg - General physical appearance no distress, no pain - Eyes normal ocular movement - ENT atraumatic, normocephalic - Neck Neck exam: trachea midline - Respiratory normal expansion, normal respiratory effort, clear to auscultation - Cardiovascular Cardiovascular exam: Present: RRR, distant heart sounds - Abdomen Abdomen: Present: bowel sounds present, soft, non tender - Integumentary no rash - Neurologic CN 2-12 grossly intact - Musculoskeletal normal gait, normal posture - Psychiatric oriented to time, oriented to person, oriented to place, memory intact - Labs 03/12/17 07:38 Diabetes panel 03/12/17 Range/Units 07:38 Glucose 703 H* (70-99) mg/dL Pituitary panel 03/12/17 Range/Units 07:38 Glucose 703 H* (70-99) mg/dL Adrenal panel 03/12/17 Range/Units 07:38 Glucose 703 H* (70-99) mg/dL Consult Discharge Plan - Plan Referrals: Cindy Yeager, [Primary Care Provider] - <Nanette Berry - Last Filed: 03/12/17 15:08> Date of Encounter: 03/12/17 Time of Encounter: 12:30 - Assessment and Plan (1) Hypothyroid Current Visit: Yes Status: Chronic continue home synthroid Qualifiers: Hypothyroidism type: unspecified Qualified Code(s): E03.9 - Hypothyroidism , unspecified (2) Diabetes mellitus Current Visit: Yes Status: Chronic MBS not well controlled overnight due to I thought her home medication was ordered and given to patient as her home dosing but apparently the Nonformulary medication entered by pharmacy per my request was entered as a patient to take her home medication - which she didnt have. patient started on high dose SSI and her glucose is trending down. continue to monitor unable to DC patient until back within normal range Qualifiers: Diabetes mellitus type: type 1 Diabetes mellitus complication status: with unspecified complications Qualified Code(s): E10.8 - Type 1 diabetes mellitus with unspecified complications (3) S/P colonoscopy Current Visit: Yes Status: Acute pathology pending (4) DVT prophylaxis Current Visit: No Status: Acute (5) CKD (chronic kidney disease), stage III Current Visit: No Status: Chronic (6) Hypertension Current Visit: No Status: Chronic normotensive, currently continue home medications she did has SBP overnight in the 170's - prn lopressor ordered Qualifiers: Hypertension type: essential hypertension Qualified Code(s): I10 - Essential (primary) hypertension Subjective Patient reports: no new complaints, feels better, tolerating a regular diet, voiding w/o difficulty Objective Vital Signs - Last 8 Hours Temp Pulse Resp BP Pulse Ox 03/12/17 09:20 97.7 F 80 18 147/68 97 03/12/17 07:05 98.6 F 90 16 175/71 93 Intake and Output 03/11/17 03/12/17 03/12/17 23:59 07:59 15:59 Intake Total 0 / 0 0 / 0 Output Total 0 / 0 2049 900 / 900 Balance 0 / 0 -0 / -2049 - / -900 Intake: Oral 0 / 0 0 / 0 Output: Urine 0 / 0 2049 900 / 900 Other: Weight 84.2 kg Blood Glucose* 388 307 Patient Weight 03/12/17 23:59 Weight 84.2 kg - General physical appearance well nourished, no distress, no pain - Eyes PERRL, normal ocular movement - ENT normocephalic - Neck Neck exam: trachea midline - Respiratory normal expansion, normal respiratory effort - Cardiovascular Cardiovascular exam: Present: RRR - Abdomen Abdomen: Present: bowel sounds present, soft, non tender - Integumentary no rash - Neurologic CN 2-12 grossly intact - Musculoskeletal normal posture - Psychiatric oriented to time, oriented to person, memory intact - Labs 03/12/17 07:38 Diabetes panel 03/12/17 Range/Units 07:38 Glucose 703 H* (70-99) mg/dL Pituitary panel 03/12/17 Range/Units 07:38 Glucose 703 H* (70-99) mg/dL Adrenal panel 03/12/17 Range/Units 07:38 Glucose 703 H* (70-99) mg/dL - Attending Attestation I have personally performed a face to face evaluation on this patient. I have reviewed and agree with the care plan. History and Exam by me shows:
--- NOTE | 2017-03-12 17:53 | Discharge Summary ---
Date of Encounter: 03/13/17 Time of Encounter: 08:15 - Discharge Medications Home Medications: Cholecalciferol (Vitamin D3) [Vitamin D3] 50,000 unit PO MO 08/14/16 [History] Clopidogrel [Plavix] 75 mg PO HS 08/14/16 [History] Cyanocobalamin (B-12) [Vitamin B12] 1,000 mcg IM QMONTH 08/14/16 [History] Furosemide [Lasix] 40 mg PO BID 08/14/16 [History] Hydrocortisone [Cortef] 2.5 tab PO BID 08/14/16 [History] Levothyroxine [Synthroid] 88 mcg PO DAILY 08/14/16 [History] Metoprolol XL (24 HR) Succ [Toprol Xl] 50 mg PO DAILY 08/14/16 [History] Latanoprost [Xalatan] 1 drop LEFT EYE HS 11/13/16 [History] Insulin ASPART [Novolog] 10 - 12 unit SQ TID 01/21/17 [History] Insulin Degludec [Tresiba Flextouch U-100] 20 unit SQ HS 03/11/17 [History] Losartan Potassium [Cozaar] 50 mg PO DAILY 03/11/17 [History] Multivitamin [One Daily Multivitamin] 1 tab PO DAILY 03/11/17 [History] Allergies/Adverse Reactions: 3 Allergy/AdvReac Type Severity Reaction Status Date / Time adhesive tape Allergy Rash Verified 03/11/17 07:07 insulin isophane (NPH) Allergy Rash Verified 03/11/17 07:07 [From Humulin 70/30] Insulin Regular Allergy Rash Verified 03/11/17 07:07 [From Humulin 70/30] isosorbide [From Imdur] Allergy Rash Verified 03/11/17 07:07 lisinopril Allergy Anaphylaxis Verified 03/11/17 07:07 Ieendpr-Bhb-Ypz Reductase Allergy Muscle Pain Verified 03/11/17 07:07 Inhibitor [Statins] General Surgery Exam Initial Vital Signs Temp Pulse Resp BP Pulse Ox 97.9 F 80 18 166/67 97 03/11/17 06:57 03/11/17 06:57 03/11/17 06:57 03/11/17 06:57 03/11/17 06:57 - Additional Findings Constitutional: Alert, in no acute distress, well nourished, well developed. Head: Normocephalic, atraumatic, normal contour and symmetric, no masses, lesions or scars Heart: Normal, regular rate and rhythm, no murmurs Lungs: Clear to auscultation, no wheezes, rales, or rhonchi Abdomen: Soft, nondistended, nontender, and no masses palpable, bowel sounds present and normal, no guarding or rigidity. Extremities: +1 pitting edema, increased pinkness bilaterally at anterior aspect of His without blisters or signs of infection, No clubbing, cyanosis, radial pulse +2/4, capillary refill <2sec. Skin: Skin warm and dry, no lesions, no rashes, no jaundice Neurologic: Cranial nerves II through XII grossly intact, no focal deficits, strength within normal limits in all extremities Psych: Cooperative with exam, good eye contact, cognitive function intact, judgment good insight good, speech clear, thought process logical, and goal directed Primary care physician: Arielle Ma Consults: 03/11/17 08:27 Consult to Director Of Healthcare Systems [CONS] Routine Reason for SW Consult: patient to be discharged tomorrow, lives alone, [facility] - Patient Status Disposition: Home Health Service Condition: Good Functional capacity at discharge: uses cane/walker Overall status at discharge: patient is back to baseline - Discharge Instructions Follow Up With: Nanette Berry MD [Partnered Physician] - 03/21/17 11:25 am Cindy Yeager DO [Primary Care Provider] - Additional Instructions: -Follow-up with Dr. Berry in 1-2 weeks. - Return to the ED if symptoms worsen or new symptoms arise. - Diet and Activity Activity: ambulate only with your walker, as per physical therapy, increase activity as tolerated, other (Use 5 L of oxygen at night) Diet: diabetic diet - Hospital Course Hospital course: Ms. Wyatt is a 71 year old female with a past medical history of diabetes was admitted to the hospital post colonoscopy due to having known at home to be able to watch her after having MAC. Patient was found that the hyperglycemic therefore patient stayed in the hospital for another 2 days until blood glucoses were under control. Patient fell during visit in right hip x-rays were obtained which showed no acute fracture. Sacral/coccyx x-rays were obtained which showed "No definite acute fracture is identified. However there is subtle deformityof the distal sacrum when compared to the prior exam. A nondisplaced fracture with underlying osteopenia cannot be entirely excluded." This was discussed with ortho who said no treatment for sacral fracture. Due to patient's instability PT and OT were evaluated and patient was discharged to inpatient rehabilitation facility. Patient was instructed follow up with Dr. Berry in 1 to 2 weeks. - Time Spent with Patient Total time spent providing and/or coordinating discharge services: Labs on day of discharge: Labs from last 24 hours 03/12/17 03/12/17 03/12/17 16:50 12:10 09:30 Glucose POC Glucose 104 H 307 H 505 H* 03/12/17 03/12/17 03/12/17 09:28 07:38 07:16 Glucose 703 H* POC Glucose 535 H* > 600 H* 03/12/17 03/11/17 07:15 20:09 Glucose POC Glucose > 600 H* 388 H - Impressions ITS Impressions Hip X-Ray 03/12/17 13:51 IMPRESSION: No displaced fracture. D/ / Les Hughes / Les Hughes Interpreting Provider: Les Hughes Sacrum and Coccyx X-Ray 03/12/17 15:11 IMPRESSION: No definite acute fracture is identified. However there is subtle deformity of the distal sacrum when compared to the prior exam. A nondisplaced fracture with underlying osteopenia cannot be entirely excluded. Consider further evaluation with CT if clinically warranted. D/ / 03/12/2017 16:08:34 Nanda Crespo MD / temo Interpreting Provider: Nanda Crespo MD
[2017-03-12] MEDS: 0.9 % Sodium Chloride 500 ML IVC SCH (19:49)
[2017-03-12] MEDS ORDERED: Insulin LISPRO 300 UNITS/3 ML VIAL SQ SCH (21:00)
[2017-03-12] MEDS ORDERED: Insulin DETEMIR 100 UNIT/ML X5UNITS SQ SCH (21:00)
[2017-03-12] MEDS: TRESIBA U SQ SCH (21:42)
[2017-03-12] MEDS: Latanoprost 2.5 ML BOTTLE LEFT EYE SCH (21:46)
[2017-03-13] MEDS: Insulin LISPRO 300 UNITS/3 ML VIAL SQ SCH ×7 (08:01→17:30)
[2017-03-13] MEDS: Hydrocortisone 10 MG TABLET PO SCH (08:02)
[2017-03-13] MEDS: Metoprolol XL (24 HR) Succ 50 MG TAB.ER.24H PO SCH (08:02)
[2017-03-13] MEDS: Furosemide 40 MG TABLET PO SCH ×2 (08:02→17:34)
--- NOTE | 2017-03-13 11:15 | Physician Discharge Referral ---
ExtendedCare Referral Info Transfer To: Inpatient rehabilitation facility Provider in Charge: Dr. Nanette Berry Provider in Charge after Transfer: Other (PCP) Institutional Level of Care: Skilled - Diagnosis (1) S/P colonoscopy Priority: Primary Status: Resolved (2) Status post fall Priority: Secondary Status: Acute (3) Hypoglycemia Priority: Secondary Status: Resolved (4) CAD (coronary artery disease) Priority: Secondary Status: Chronic (5) Diabetes type I Priority: Secondary Status: Chronic (6) Hypertension Priority: Secondary Status: Chronic (7) CKD (chronic kidney disease), stage III Priority: Secondary Status: Chronic (8) Hypothyroid Priority: Secondary Status: Chronic Expected Duration of Placement: less than 30 days Prognosis: Good Aware of Diagnosis: Patient Aware of Prognosis: Patient - Transfer Medications Home Medications: Cholecalciferol (Vitamin D3) [Vitamin D3] 50,000 unit PO MO 08/14/16 [History] Clopidogrel [Plavix] 75 mg PO HS 08/14/16 [History] Cyanocobalamin (B-12) [Vitamin B12] 1,000 mcg IM QMONTH 08/14/16 [History] Furosemide [Lasix] 40 mg PO BID 08/14/16 [History] Hydrocortisone [Cortef] 2.5 tab PO BID 08/14/16 [History] Levothyroxine [Synthroid] 88 mcg PO DAILY 08/14/16 [History] Metoprolol XL (24 HR) Succ [Toprol Xl] 50 mg PO DAILY 08/14/16 [History] Latanoprost [Xalatan] 1 drop LEFT EYE HS 11/13/16 [History] Insulin ASPART [Novolog] 10 - 12 unit SQ TID 01/21/17 [History] Insulin Degludec [Tresiba Flextouch U-100] 20 unit SQ HS 03/11/17 [History] Losartan Potassium [Cozaar] 50 mg PO DAILY 03/11/17 [History] Multivitamin [One Daily Multivitamin] 1 tab PO DAILY 03/11/17 [History] Allergies/Adverse Reactions: 3 Allergy/AdvReac Type Severity Reaction Status Date / Time adhesive tape Allergy Rash Verified 03/11/17 07:07 insulin isophane (NPH) Allergy Rash Verified 03/11/17 07:07 [From Humulin 70/30] Insulin Regular Allergy Rash Verified 03/11/17 07:07 [From Humulin 70/30] isosorbide [From Imdur] Allergy Rash Verified 03/11/17 07:07 lisinopril Allergy Anaphylaxis Verified 03/11/17 07:07 Icsgvec-Zbn-Rop Reductase Allergy Muscle Pain Verified 03/11/17 07:07 Inhibitor [Statins] - Respiratory Orders None - Ancillary Orders May use pressure relief devices daily prn, May go on JOELLEN w/family/respon alliance party w /meds at nurse discretion PRN, May consult with Dentist, Materials Planner, [employer] Truck Driver PRN - Advance Directives Code Status: Full Code - Mobility Orders Chair, Ambulate - Rehabiliation Orders Rehab Potential: Good Rehab Orders: ROM Exercises, Evaluation for Physical Therapy, Evaluation for Occupational Therapy - Treatments Skin tear care topically daily PRN per policy - Diet Orders No Concentrated Sweets (Diabetic diet) CERTIFICATION: I certify that the transfer of the above named patient to an Extended Care Facility is necessary for the continuing treatment of the diagnosis listed. The above information is true and accurate reflection of patient's current condition. Confidential - Redisclosure prohibited without a patient's written consent.
[2017-03-13 11:40] VITALS: BP 159/71
--- NOTE | 2017-03-13 15:06 | Event Note ---
Date of Encounter: 03/13/17 Time of Encounter: 15:00 The patient is now refusing inpatient rehab and states that she never agreed to rehab. I have explained to the patient that I do not feel that it is safe for her to return to her home environment at this time. I explained that PT/OT has recommended inpatient rehabilitation. The patient is refusing rehabilitation despite our recommendations and states that she will return home and resume her outpatient therapies.
--- NOTE | 2017-03-13 15:09 | Physician Discharge Referral ---
Home Health/Hosp Referral Info Transfer to: Home Health Attending Provider: Dr. Nanette Berry Provider in Charge Post Discharge: PCP - Diagnosis (1) S/P colonoscopy Priority: Primary Status: Resolved (2) Status post fall Priority: Secondary Status: Acute (3) Hypoglycemia Priority: Secondary Status: Resolved (4) CAD (coronary artery disease) Priority: Secondary Status: Chronic (5) Diabetes type I Priority: Secondary Status: Chronic (6) Hypertension Priority: Secondary Status: Chronic (7) CKD (chronic kidney disease), stage III Priority: Secondary Status: Chronic (8) Hypothyroid Priority: Secondary Status: Chronic - Respiratory Orders None - Dressing/Wound Care Site: none - Diet/Nutrition Diet/Nutrition Orders: No Concentrated Sweets (diabetic diet) - Activity Activity Orders: Ambulate, Chair, Walker - Services Needed Following services are medically necessary services: Nursing, Home Health Aide, Physical Therapy, Occupational Therapy - Transfer Medications Home Medications: Cholecalciferol (Vitamin D3) [Vitamin D3] 50,000 unit PO MO 08/14/16 [History] Clopidogrel [Plavix] 75 mg PO HS 08/14/16 [History] Cyanocobalamin (B-12) [Vitamin B12] 1,000 mcg IM QMONTH 08/14/16 [History] Furosemide [Lasix] 40 mg PO BID 08/14/16 [History] Hydrocortisone [Cortef] 2.5 tab PO BID 08/14/16 [History] Levothyroxine [Synthroid] 88 mcg PO DAILY 08/14/16 [History] Metoprolol XL (24 HR) Succ [Toprol Xl] 50 mg PO DAILY 08/14/16 [History] Latanoprost [Xalatan] 1 drop LEFT EYE HS 11/13/16 [History] Insulin ASPART [Novolog] 10 - 12 unit SQ TID 01/21/17 [History] Insulin Degludec [Tresiba Flextouch U-100] 20 unit SQ HS 03/11/17 [History] Losartan Potassium [Cozaar] 50 mg PO DAILY 03/11/17 [History] Multivitamin [One Daily Multivitamin] 1 tab PO DAILY 03/11/17 [History] Allergies/Adverse Reactions: 3 Allergy/AdvReac Type Severity Reaction Status Date / Time adhesive tape Allergy Rash Verified 03/11/17 07:07 insulin isophane (NPH) Allergy Rash Verified 03/11/17 07:07 [From Humulin 70/30] Insulin Regular Allergy Rash Verified 03/11/17 07:07 [From Humulin 70/30] isosorbide [From Imdur] Allergy Rash Verified 03/11/17 07:07 lisinopril Allergy Anaphylaxis Verified 03/11/17 07:07 Azjeuxo-Ftk-Olo Reductase Allergy Muscle Pain Verified 03/11/17 07:07 Inhibitor [Statins] Certification: Further, I certify that my clinical findings support that this patient is homebound (i.e. absences from home require considerable and taxing effort and are for medical reasons or oriental orthodox services or infrequently or short duration when for other reasons) because: Homebound Reason: Patient requires assistance of a person or device to safely leave home Attestation: My signature below is to certify that this patient is under my care and that I, or nurse practitioner, or a physician's certified surgical tech/first assistant working with me, has a face-to -face encounter with this patient.
[2017-03-13] MEDS ORDERED: *HR* Propofol 500 MG/50 ML BOTTLE IVC ONE (17:42)
[2017-03-13] MEDS ORDERED: Lidocaine -MPF 2% 5 ML VIAL INFILT ONE (17:42)
== END 2017-03-13 17:43 | disposition home health service (06) ==
LOC: 3ANU 06:15 → SAMDAY 06:15 → 3ANU 08:47
PROVIDERS: ADMIT Surgery; ATTEND Surgery

== ENCOUNTER 2018-04-17 16:15 | Observation (INO) ==
--- NOTE | 2018-04-17 16:44 | Emergency Department Note ---
Disposition Clinical Impression: Falls frequently Disposition: Admitted As Inpatient Condition: Good General Adult HPI - General Chief complaint: ED Weakness Stated complaint: Fall Time Seen by Provider: 04/17/18 16:26 Source: patient Limitations: no limitations - History of Present Illness Pain Scale: 7 - Related Data Home Medications Medication Instructions Recorded Confirmed RX: Cholecalciferol (Vitamin D3) 50,000 unit PO MO 08/14/16 04/17/18 [Vitamin D3] RX: Clopidogrel [Plavix] 75 mg PO HS 08/14/16 04/17/18 RX: Cyanocobalamin (B-12) [Vitamin 1,000 mcg IM QMONTH 08/14/16 04/17/18 B12] RX: Hydrocortisone [Cortef] 5 mg PO BID 08/14/16 04/17/18 RX: Levothyroxine [Synthroid] 88 mcg PO DAILY 08/14/16 04/17/18 RX: Metoprolol XL (24 HR) Succ 50 mg PO DAILY 08/14/16 04/17/18 [Toprol Xl] RX: Latanoprost [Xalatan] 1 drop LEFT EYE HS 11/13/16 04/17/18 RX: Losartan Potassium [Cozaar] 50 mg PO DAILY 03/11/17 04/17/18 RX: Multivitamin [One Daily 1 tab PO DAILY 03/11/17 04/17/18 Multivitamin] Bumetanide [Bumex] 1 mg PO BID 07/23/17 04/17/18 Ferrous Sulfate [Iron] 325 mg PO BID 07/23/17 04/17/18 Colchicine [Mitigare] 0.6 mg PO BID 09/24/17 04/17/18 Insulin Glargine,Hum.rec.anlog 24 unit SQ DAILY 01/21/18 04/17/18 [Lantus Solostar] [place]-3/Dha/Epa/Fish Oil [Fish Oil 2 tab PO DAILY 01/21/18 04/17/18 1,000 mg Softgel] Gabapentin [Neurontin] 400 mg PO BID 04/17/18 04/17/18 Insulin LISPRO [Admelog Solostar] 0 unit SQ TID 04/17/18 04/17/18 Allergies Allergy/AdvReac Type Severity Reaction Status Date / Time adhesive tape Allergy Rash Verified 01/21/18 14:23 insulin isophane (NPH) Allergy Rash Verified 01/21/18 14:23 [From Humulin 70/30] Insulin Regular Allergy Rash Verified 01/21/18 14:23 [From Humulin 70/30] isosorbide [From Imdur] Allergy Rash Verified 01/21/18 14:23 lisinopril Allergy Anaphylaxis Verified 01/21/18 14:23 Rrbzzer-Ahp-Zxq Reductase Allergy Muscle Pain Verified 01/21/18 14:23 Inhibitor [Statins] Past Medical History - Past Medical History Medical history: Reports: arthritis, atrial fibrillation, CHF, coronary artery disease, CVA, diabetes, glaucoma, hyperlipidemia, hypertension, myocardial infarction, osteoporosis, peripheral artery disease, renal disease, thyroid disease, syncope, TIA Surgical history: Reports: angioplasty/stent, breast surgery, cataract, vascular surgery Psychiatric history: Reports: anxiety, depression FRONT DESK ATTENDANT history: Reports: no FRONT DESK ATTENDANT history - Social History Smoking Status: Never smoker Smokeless Tobacco Status: No Alcohol use: Reports: none Drug use: Reports: none Physical Exam - General Limitations: no limitations General appearance: alert Course Vital Signs Temperature 97.8 F 04/17/18 16:16 Pulse Rate 68 04/17/18 16:16 Respiratory Rate 22 04/17/18 16:16 Blood Pressure 164/68 04/17/18 16:16 O2 Sat by Pulse Oximetry 100 04/17/18 16:16 Temperature 97.8 F 04/17/18 16:16 Pulse Rate 62 04/17/18 19:12 Respiratory Rate 18 04/17/18 21:21 Blood Pressure 144/67 04/17/18 21:21 O2 Sat by Pulse Oximetry 100 04/17/18 19:12 Oxygen Delivery Oxygen Delivery Room Air Medical Decision Making - Lab Data Result diagrams: 04/17/18 17:07 04/17/18 17:07 Lab Results 04/17/18 04/17/18 04/17/18 Range/Units 17:07 17:07 18:19 WBC 4.2 L (4.3-11.1) K/mcL RBC 3.47 L (3.82-4.97) M/mcL Hgb 10.6 L (11.5-15.4) g/dL Hct 31.7 L (35.3-44.9) % MCV 91.4 (83.0-100.0) fL MCH 30.5 (28.0-33.3) pg MCHC 33.4 (31.6-35.5) g/dL RDW 14.6 H (11.5-14.5) % Plt Count 151 (140-400) K/mcL MPV 12.2 (9.4-12.4) fL Immature Gran % 1.2 (0-4) % Seg Neutrophils % 60.9 % Lymphocytes % 23.3 % Monocytes % 11.0 % Eosinophils % 2.9 % Basophils % 0.7 % Neutrophils # 2.6 (1.6-8.9) K/mcL Lymphocytes # 1.0 (0.6-4.6) K/mcL Monocytes # 0.5 (0.0-1.3) K/mcL Eosinophils # 0.1 (0.0-0.6) K/mcL Basophils # 0.0 (0.0-0.2) K/mcL Sodium 139 (136-145) mEq/L Potassium 4.0 (3.5-5.1) mEq/L Chloride 104 (98-107) mEq/L Carbon Dioxide 30 H (23-29) mEq/L BUN 36 H (8-23) mg/dL Creatinine 1.27 H (0.60-1.20) mg/dL Est GFR ( Amer) 50 L (> 60) Est GFR (Non-Af Amer) 41 L (> 60) BUN/Creatinine Ratio 28 H (6-26) Glucose 303 H (70-105) mg/dL Calculated Osmolality 308 H (280-300) Calcium 9.4 (8.6-10.3) mg/dL Troponin I 0.03 (< 0.04) ng/mL Urine Color Yellow (Yellow) Urine Clarity Cloudy A (Clear) Urine pH 5.0 (5.0-8.0) pH Units Ur Specific [place] 1.016 (1.010-1.025) Urine Protein 100 H (Neg-Trace) mg/dL Urine Glucose (UA) 100 H (Normal) mg/dL Urine Ketones Negative (Negative) mg/dL Urine Blood Moderate H (Negative) Urine Nitrite Negative (Negative) Urine Bilirubin Negative (Negative) Urine Urobilinogen Normal (Normal) mg/dL Ur Leukocyte Esterase Small H (Negative) Urine Microscopic RBC 0-3 (0-3) per hpf Urine Microscopic WBC 0-3 (0-3) per hpf Ur Squamous Epith Cells Many H (None-Few) per lpf Urine Bacteria None Seen (None-Few) per hpf Hyaline Casts None Seen (None-Few) per lpf Ur Culture Indicated? NO. A (NO) Attestation Statement - Attestation Attestation: I examined this patient and my medical decision-making was reviewed with the Resident Physician. I agree with the documented findings, disposition and treatment plan as described except to the extent set forth below. [id number]-[id number]-[id number] time provided Patient arrives after falls and generalized weakness. She was recently dischar ge from an outside facility. She has peripheral edema noted to her lower extremities. She states she has worsening weakness in her legs.
--- NOTE | 2018-04-17 16:51 | Emergency Department Note ---
Disposition Clinical Impression: Falls frequently Disposition: Admitted As Inpatient Condition: Good Referrals: Cindy Yeager DO [Primary Care Provider] - Forms: ED Satisfaction Letter Time of Disposition: 19:22 General Adult HPI - General Chief complaint: ED Weakness Stated complaint: Fall Time Seen by Provider: 04/17/18 16:26 Source: patient Limitations: no limitations Nursing Notes Reviewed: Yes Vital Signs Reviewed: Yes - History of Present Illness HPI Narrative: Lina Wyatt is a 72 year old female who presents with a CC of falling earlier this afternoon. Patient reports that she does have a history of stroke with some residual weakness on her right lower extremity however it has been significantly worse over the last few weeks. Patient was previously hospitalized for falls at [facility] earlier this week and was subsequently discharged yesterday. Earlier today she notes that she did have one fall with no LOC, however she notes that she did hit her head on her dresser as she fell. Currently endorses generalized headache as well as weakness in her RLE. The history, physical exam, and medical decision making was performed by the medical student either while I was physically present and actively involved or I personally re-performed the exam and medical decision making. I have verified the accuracy of the medical student's documentation with regards to the history, physical exam findings, and medical decision making. 72-year-old female presents to the emergency department with concern for recurrent falls. Patient has fell over 5 times last week. She was recently admitted a [facility]. Patient states that she hit her head and she is having neck pain. Patient denies being on any blood thinning medications. Patient denies any pain anywhere else. She states that she does not get lightheaded or dizzy when she falls. She does not have syncopal episodes. She states that she sits a lot balance at times. Denies any fevers, chills, nausea, vomiting, dysuria, hematuria, shortness of breath, chest pain. Onset (ago): hour(s) Location: head Pain Severity: moderate Pain Scale: 7 Quality: aching, dull Consistency: constant Improves with: nothing Worsens with: nothing Associated symptoms: Reports: headaches, weakness (Weakness in RLE). Denies: confusion, chest pain, cough, fever/chills, nausea/vomiting, shortness of breath, syncope - Related Data Home Medications Medication Instructions Recorded Confirmed Cholecalciferol (Vitamin D3) 50,000 unit PO MO 08/14/16 04/17/18 [Vitamin D3] Clopidogrel [Plavix] 75 mg PO HS 08/14/16 04/17/18 Cyanocobalamin (B-12) [Vitamin B12] 1,000 mcg IM QMONTH 08/14/16 04/17/18 Hydrocortisone [Cortef] 5 mg PO BID 08/14/16 04/17/18 Levothyroxine [Synthroid] 88 mcg PO DAILY 08/14/16 04/17/18 Metoprolol XL (24 HR) Succ [Toprol 50 mg PO DAILY 08/14/16 04/17/18 Xl] Latanoprost [Xalatan] 1 drop LEFT EYE HS 11/13/16 04/17/18 Losartan Potassium [Cozaar] 50 mg PO DAILY 03/11/17 04/17/18 Multivitamin [One Daily 1 tab PO DAILY 03/11/17 04/17/18 Multivitamin] Bumetanide [Bumex] 1 mg PO BID 07/23/17 04/17/18 Ferrous Sulfate [Iron] 325 mg PO BID 07/23/17 04/17/18 Colchicine [Mitigare] 0.6 mg PO BID 09/24/17 04/17/18 Insulin Glargine,Hum.rec.anlog 24 unit SQ DAILY 01/21/18 04/17/18 [Lantus Solostar] [place]-3/Dha/Epa/Fish Oil [Fish Oil 2 tab PO DAILY 01/21/18 04/17/18 1,000 mg Softgel] Gabapentin [Neurontin] 400 mg PO BID 04/17/18 04/17/18 Insulin LISPRO [Admelog Solostar] 0 unit SQ TID 04/17/18 04/17/18 Allergies Allergy/AdvReac Type Severity Reaction Status Date / Time adhesive tape Allergy Rash Verified 01/21/18 14:23 insulin isophane (NPH) Allergy Rash Verified 01/21/18 14:23 [From Humulin 70/30] Insulin Regular Allergy Rash Verified 01/21/18 14:23 [From Humulin 70/30] isosorbide [From Imdur] Allergy Rash Verified 01/21/18 14:23 lisinopril Allergy Anaphylaxis Verified 01/21/18 14:23 [place]-Uci-Yxf Reductase Allergy Muscle Pain Verified 01/21/18 14:23 Inhibitor [Statins] All systems ED: reviewed and negative except as stated. Review of Systems: As Per HPI Constitutional: Denies: fever, chills Eyes: Denies: vision change ENT ED: Denies: congestion Cardiovascular: Reports: edema. Denies: chest pain, palpitations, syncope Respiratory: Denies: cough, dyspnea Gastrointestinal: Denies: abdominal pain, nausea, vomiting Genitourinary: Reports: other (pt reports she has trouble urinating ). Denies: urgency, dysuria, frequency Musculoskeletal: Denies: back pain, neck pain Integumentary: Reports: other (bruising over left shoulder blade ) Neurological: Reports: headache, weakness (RLQ). Denies: numbness, paresthesias Past Medical History - Past Medical History Medical history: Reports: arthritis, atrial fibrillation, CHF, coronary artery disease, CVA, diabetes, glaucoma, hyperlipidemia, hypertension, myocardial infarction, osteoporosis, peripheral artery disease, renal disease, thyroid disease, syncope, TIA Surgical history: Reports: angioplasty/stent, breast surgery, cataract, vascular surgery Psychiatric history: Reports: anxiety, depression [employer] history: Reports: no [employer] history - Social History Smoking Status: Never smoker Smokeless Tobacco Status: No Alcohol use: Reports: none Drug use: Reports: none Physical Exam - General Limitations: no limitations General appearance: alert - Head Head exam: normocephalic - Eye Eye exam: Present: EOMI - ENT ENT exam: normal oropharynx - Neck Neck exam: Present: trachea midline. Absent: tenderness - Chest Chest inspection: Present: symmetric chest wall rise - Respiratory Respiratory exam: Present: normal lung sounds bilaterally. Absent: respiratory distress - Cardiovascular Cardiovascular exam: Present: regular rate, normal rhythm, normal heart sounds - Abdominal Exam Abdominal exam: Present: soft, Non-Tender. Absent: distention, guarding, rebound, rigidity - Extremities Exam Extremities exam: Present: normal capillary refill - Back Exam Back exam: Present: full ROM - Neurological Exam Neurological exam: Present: alert, oriented X3, CN II-XII intact - Psychiatric Psychiatric exam: Present: normal affect, normal mood - Skin Skin exam: Present: warm, dry, intact, normal color. Absent: rash Course Vital Signs Temperature 97.8 F 04/17/18 16:16 Pulse Rate 68 04/17/18 16:16 Respiratory Rate 22 04/17/18 16:16 Blood Pressure 164/68 04/17/18 16:16 O2 Sat by Pulse Oximetry 100 04/17/18 16:16 Temperature 97.8 F 04/17/18 16:16 Pulse Rate 68 04/17/18 16:16 Respiratory Rate 22 04/17/18 16:16 Blood Pressure 164/68 04/17/18 16:16 O2 Sat by Pulse Oximetry 100 04/17/18 16:16 Oxygen Delivery Oxygen Delivery Room Air Medical Decision Making - MDM Narrative Medical decision making narrative: 72-year-old female was his emergency Department concern for recurrent falls. supply aide is concern that patient is followed to much at home. Patient was spoken to by our social sciences lecturer and states that she wants placement in a nursing facility. A CT scan of the head and neck were obtained and do not reveal any new intracranial or cervical abnormality. Chest x-ray did not reveal any acute cardiac or pulmonary abnormality. Creatinine was normal. Troponin was negative. EKG did not reveal ischemic changes. Urinalysis not reveal any evidence of infection. Patient admitted to hospitalist for placement and nursing facility as patient is not safe at home an d does not have the care that she needs. Patient agrees to plan. Hemodynamically stable and not in any acute distress at time of admission. Cervical Spine CT 04/17/18 16:39 IMPRESSION: No acute abnormality of the cervical spine. D/ / Les Rivers / Les Rivers Interpreting Provider: Les Rivers Chest X-Ray 04/17/18 16:39 IMPRESSION: No acute cardiopulmonary findings. D/ / Nanda Crespo MD / Nanda Crespo MD Interpreting Provider: Nanda Crespo MD Head CT 04/17/18 16:39 IMPRESSION: No acute intracranial abnormality. Stable hyperattenuating lesion near the foramen of [place] could represent a small colloid cyst which does not appear to be obstructing. Diffuse atrophic changes with findings suggesting chronic microvascular ischemia D/ / Everardo Gomez MD / Everardo Gomez MD Interpreting Provider: Everardo Gomez MD Vital Signs Temperature 97.8 F 04/17/18 16:16 Pulse Rate 68 04/17/18 16:16 Respiratory Rate 22 04/17/18 16:16 Blood Pressure 164/68 04/17/18 16:16 O2 Sat by Pulse Oximetry 100 04/17/18 16:16 Temperature 97.8 F 04/17/18 16:16 Pulse Rate 62 04/17/18 19:12 Respiratory Rate 12 04/17/18 19:12 Blood Pressure 158/60 04/17/18 19:12 O2 Sat by Pulse Oximetry 100 04/17/18 19:12 Oxygen Delivery Oxygen Delivery Room Air - Lab Data Result diagrams: 04/17/18 17:07 04/17/18 17:07 Lab Results 04/17/18 04/17/18 04/17/18 Range/Units 17:07 17:07 18:19 WBC 4.2 L (4.3-11.1) K/mcL RBC 3.47 L (3.82-4.97) M/mcL Hgb 10.6 L (11.5-15.4) g/dL Hct 31.7 L (35.3-44.9) % MCV 91.4 (83.0-100.0) fL MCH 30.5 (28.0-33.3) pg MCHC 33.4 (31.6-35.5) g/dL RDW 14.6 H (11.5-14.5) % Plt Count 151 (140-400) K/mcL MPV 12.2 (9.4-12.4) fL Immature Gran % 1.2 (0-4) % Seg Neutrophils % 60.9 % Lymphocytes % 23.3 % Monocytes % 11.0 % Eosinophils % 2.9 % Basophils % 0.7 % Neutrophils # 2.6 (1.6-8.9) K/mcL Lymphocytes # 1.0 (0.6-4.6) K/mcL Monocytes # 0.5 (0.0-1.3) K/mcL Eosinophils # 0.1 (0.0-0.6) K/mcL Basophils # 0.0 (0.0-0.2) K/mcL Sodium 139 (136-145) mEq/L Potassium 4.0 (3.5-5.1) mEq/L Chloride 104 (98-107) mEq/L Carbon Dioxide 30 H (23-29) mEq/L BUN 36 H (8-23) mg/dL Creatinine 1.27 H (0.60-1.20) mg/dL Est GFR ( Amer) 50 L (> 60) Est GFR (Non-Af Amer) 41 L (> 60) BUN/Creatinine Ratio 28 H (6-26) Glucose 303 H (70-105) mg/dL Calculated Osmolality 308 H (280-300) Calcium 9.4 (8.6-10.3) mg/dL Troponin I 0.03 (< 0.04) ng/mL Urine Color Yellow (Yellow) Urine Clarity Cloudy A (Clear) Urine pH 5.0 (5.0-8.0) pH Units Ur Specific [place] 1.016 (1.010-1.025) Urine Protein 100 H (Neg-Trace) mg/dL Urine Glucose (UA) 100 H (Normal) mg/dL Urine Ketones Negative (Negative) mg/dL Urine Blood Moderate H (Negative) Urine Nitrite Negative (Negative) Urine Bilirubin Negative (Negative) Urine Urobilinogen Normal (Normal) mg/dL Ur Leukocyte Esterase Small H (Negative) Urine Microscopic RBC 0-3 (0-3) per hpf Urine Microscopic WBC 0-3 (0-3) per hpf Ur Squamous Epith Cells Many H (None-Few) per lpf Urine Bacteria None Seen (None-Few) per hpf Hyaline Casts None Seen (None-Few) per lpf Ur Culture Indicated? NO. A (NO) - EKG Data EKG #1 EKG attestation: Yes I reviewed and interpreted this EKG. EKG results narrative: 16:43 Heart rate 64 bpm, KS interval 201 ms, QRS duration 102 ms, QTC 434 ms, normal axis. Sinus rhythm ventricular rate of 64 beats for minute. No ischemic ST changes on this EKG.
[2018-04-17 17:34] LABS: Basophils % 0.7 %; Eosinophils # 0.1 K/mcL (0.0-0.6); Eosinophils % 2.9 %; Hematocrit 31.7 % (35.3-44.9); Hemoglobin 10.6 g/dL (11.5-15.4); Immature Granulocytes % 1.2 % (0-4); Lymphocytes % 23.3 %; Mean Corpuscular HGB Conc 33.4 g/dL (31.6-35.5); Mean Corpuscular Hemoglobin 30.5 pg (28.0-33.3); Mean Corpuscular Volume 91.4 fL (83.0-100.0); Mean Platelet Volume 12.2 fL (9.4-12.4); Monocytes # 0.5 K/mcL (0.0-1.3); Neutrophils # 2.6 K/mcL (1.6-8.9); Platelet Count 151 K/mcL (140-400); Red Blood Count 3.47 M/mcL (3.82-4.97); Red Cell Distribution Width 14.6 % (11.5-14.5); Segmented Neutrophils % 60.9 %
[2018-04-17 17:44] LABS: Calcium 9.4 mg/dL (8.6-10.3)
[2018-04-17 17:45] LABS: Troponin I 0.03 ng/mL (< 0.04)
[2018-04-17 18:30] LABS: Bilirubin,Urine Negative (Negative); Blood,Urine Moderate (Negative); Clarity,Urine Cloudy (Clear); Color,Urine Yellow (Yellow); Glucose,Urine (UA) 100 mg/dL (Normal); Ketones,Urine Negative (Negative); Leukocyte Esterase,Urine Small (Negative); Nitrite,Urine Negative (Negative); Protein,Urine 100 mg/dL (Neg-Trace); Specific Gravity,Urine 1.016 (1.010-1.025); Urobilinogen,Urine Normal (Normal)
[2018-04-17 18:32] LABS: Bacteria,Urine None Seen per hpf (None-Few); Hyaline Casts,Urine None Seen per lpf (None-Few); RBC,Urine 0-3 per hpf (0-3); Squamous Epithelial Cell,Urine Many per lpf (None-Few); WBC,Urine 0-3 per hpf (0-3)
[2018-04-18] MEDS ORDERED: Naloxone 0.4 MG/ML INJ IVP PRN (00:36)
[2018-04-18] MEDS ORDERED: Dextrose Gel 15 GM/37.5 ML TUBE PO PRN ×2 (00:39)
[2018-04-18] MEDS ORDERED: D5% in Water 1,000 ML IVC PRN (00:39)
[2018-04-18] MEDS ORDERED: *HR* Dextrose 50 % in Water (Syg) 50 ML SYRINGE IVP PRN (00:39)
--- NOTE | 2018-04-18 01:32 | Internal Med History&Physical ---
Addendum entered and electronically signed by Vinod Treviño CNP 04/18/18 03:44: Will also order Lumbar Spine MRI to reevaluate known spinal canal stenosis from September 2015 MRI. Original Note: <Vinod Treviño - Last Filed: 04/18/18 01:11> Date of Encounter: 04/17/18 Time of Encounter: 23:45 Internal Medicine - H&P: HPI Chief complaint: Weakness Admitted From: Home Plans for Post Hospital Care: Home History of present illness: Ms. Wyatt is a 72 year old female with past medical history significant for CVA, TIA, CAD with stents x2, hypertension, hyperlipidemia, type 1 diabetes, glaucoma, neuropathy, and chronic kidney disease who presents for bilateral lower extremity weakness for past three weeks getting progressively worse. Has chronic right lower extremity weakness and memory loss from deficit from past CVA. Denies any syncope, vision changes, lightheadedness, dizziness, chest pain, shortness of breath, headache, or urinary changes. Has chronic numbness secondary to neuropathy. Has had some decreased intake secondary to intermittent diarrhea which is not unusual for her due to history of colitis. Weakness has also caused her to have mechanical falls including five falls in the last week. Denies any injury but does admit to hitting her head and neck when falling today. No loss of consciousness, though fall was unwitnessed. Nothing makes the weakness better or worse. Last episode of diarrhea was 04/16/2018. Denies recent medication changes. Has been using a walker at home to help with her mobility. Was discharged 04/16/[address] [facility] in [place] following 3 day admission for same, unsure what tests were completed, but states everything came back normal. Denies working with therapy during admission. Follows with [facility] Dr Herrera as she has had similar problems in the past but is now more severe, has pending referral to Neurologist in [place] for July 2018. Past Med Surg Social Fam HX - Past Medical History Medical history: arthritis, coronary artery disease, CVA, diabetes, glaucoma, hyperlipidemia, hypertension, myocardial infarction, osteoporosis, peripheral artery disease, renal disease, thyroid disease, syncope, TIA Additional medical history: Lymph edema, Charcot Joint Foot, Rt Big Great Toe Amputated, chronic cellulitis, DM type 1, Heart Blockages 95%,95%, and 90%, Endocrine Insufficency, DM Dupuytrenes Contractor, Colitis. - Past Surgical History Surgical History: angioplasty/stent, breast surgery, cataract, vascular surgery - Social History Smoking Status: Never smoker Smokeless Tobacco Status: No Alcohol use: none Drug use: none - Family History Mother Living Status: Cause of : OD Hx Family Cardiac Disorders: No Hx Family Respiratory Disorders: No Hx Family Cancer: No Hx Family GI Disorders: No Hx Family Genitourinary Disorders: No Hx Family Endocrine Disorder: No Hx Family Musculoskeletal Disorders: No Hx Family Neuromuscular Disorders: No Hx Family Neurologic Disorders: No Hx Family HEENT Disorders: No Hx Family Autoimmune Disorders: No Hx Family Reproductive Disorders: No Hx Family Psychosocial Disorders: No Hx Family Medical Disorders: No Father Living Status: Cause of : pancreatic cancer Hx Family Cardiac Disorders: No Hx Family Respiratory Disorders: No Hx Family Cancer: Yes (pancreatic cancer) Hx Family GI Disorders: No Hx Family Genitourinary Disorders: No Hx Family Endocrine Disorder: No Hx Family Musculoskeletal Disorders: No Hx Family Neuromuscular Disorders: No Hx Family Neurologic Disorders: No Hx Family HEENT Disorders: No Hx Family Autoimmune Disorders: No Hx Family Reproductive Disorders: No Hx Family Psychosocial Disorders: No Hx Family Medical Disorders: No Internal Medicine - H&P: Meds Cholecalciferol (Vitamin D3) [Vitamin D3] 50,000 unit PO MO 08/14/16 [History] Clopidogrel [Plavix] 75 mg PO HS 08/14/16 [History] Cyanocobalamin (B-12) [Vitamin B12] 1,000 mcg IM QMONTH 08/14/16 [History] Hydrocortisone [Cortef] 5 mg PO BID 08/14/16 [History] Levothyroxine [Synthroid] 88 mcg PO DAILY 08/14/16 [History] Metoprolol XL (24 HR) Succ [Toprol Xl] 50 mg PO DAILY 08/14/16 [History] Latanoprost [Xalatan] 1 drop LEFT EYE HS 11/13/16 [History] Losartan Potassium [Cozaar] 50 mg PO DAILY 03/11/17 [History] Multivitamin [One Daily Multivitamin] 1 tab PO DAILY 03/11/17 [History] Bumetanide [Bumex] 1 mg PO BID 07/23/17 [History] Ferrous Sulfate [Iron] 325 mg PO BID 07/23/17 [History] Colchicine [Mitigare] 0.6 mg PO BID 09/24/17 [History] Insulin Glargine,Hum.rec.anlog [Lantus Solostar] 24 unit SQ DAILY 01/21/18 [History] [place]-3/Dha/Epa/Fish Oil [Fish Oil 1,000 mg Softgel] 2 tab PO DAILY 01/21/18 [History] Gabapentin [Neurontin] 400 mg PO BID 04/17/18 [History] Insulin LISPRO [Admelog Solostar] 0 unit SQ TID 04/17/18 [History] Allergy/AdvReac Type Severity Reaction Status Date / Time adhesive tape Allergy Rash Verified 01/21/18 14:23 insulin isophane (NPH) Allergy Rash Verified 01/21/18 14:23 [From Humulin 70/30] Insulin Regular Allergy Rash Verified 01/21/18 14:23 [From Humulin 70/30] isosorbide [From Imdur] Allergy Rash Verified 01/21/18 14:23 lisinopril Allergy Anaphylaxis Verified 01/21/18 14:23 Hojdlph-Sdp-Uhw Reductase Allergy Muscle Pain Verified 01/21/18 14:23 Inhibitor [Statins] All Systems PM: A 10-system review of systems was performed and is negative for pertinent findings except as documented above in the HPI. - Constitutional Vitals: Temp Pulse Resp BP Pulse Ox 97.6 F 64 16 151/71 99 04/17/18 21:58 04/17/18 21:58 04/17/18 21:58 04/17/18 21:58 04/17/18 21:58 Exam: General: Alert and oriented. Skin:Normal color. Chronic blanchable redness to bilateral lower extremities. HEENT:Left pupil round and reactive. No vision in right eye. Cardiovascular:Normal S1 & S2, no rubs, murmurs or gallops. No JVD. Pulse regular. Lungs:Normal breath sounds, no wheezes or crackles. Abdomen:Soft, non-tender, no rigidity. Extremities:No deformity, tenderness, or clubbing. Non pitting edema noted to bilateral lower and upper extremities. Neurological:Normal cognition and motor skills. Equal push/pull and squeeze strength on exam, but unable to raise right leg as high as left which reportedly is chronic for her. GCS 15. Pulses:Carotid and radial pulses normal +2. Rest of the physical exam is non contributory. Internal Med - H&P Results - Labs CBC & Chem 7: 04/17/18 17:07 04/17/18 17:07 Labs: Short CBC 04/17/18 Range/Units 17:07 WBC 4.2 L (4.3-11.1) K/mcL Hgb 10.6 L (11.5-15.4) g/dL Hct 31.7 L (35.3-44.9) % Plt Count 151 (140-400) K/mcL Neutrophils # 2.6 (1.6-8.9) K/mcL BMP 04/17/18 17:07 Sodium 139 Potassium 4.0 Chloride 104 Carbon Dioxide 30 H BUN 36 H Creatinine 1.27 H Glucose 303 H Calcium 9.4 Cardiac Enzymes 04/17/18 Range/Units 17:07 Troponin I 0.03 (< 0.04) ng/mL Urine 04/17/18 Range/Units 18:19 Urine Color Yellow (Yellow) Urine Clarity Cloudy A (Clear) Urine pH 5.0 (5.0-8.0) pH Units Ur Specific [place] 1.016 (1.010-1.025) Urine Protein 100 H (Neg-Trace) mg/dL Urine Glucose (UA) 100 H (Normal) mg/dL - Impressions ITS Impressions Cervical Spine CT 04/17/18 16:39 IMPRESSION: No acute abnormality of the cervical spine. D/ / Les Rivers / Les Rivers Interpreting Provider: Les Rivers Chest X-Ray 04/17/18 16:39 IMPRESSION: No acute cardiopulmonary findings. D/ / Nanda Crespo MD / Nanda Crespo MD Interpreting Provider: Nanda Crespo MD Head CT 04/17/18 16:39 IMPRESSION: No acute intracranial abnormality. Stable hyperattenuating lesion near the foramen of Monro could represent a small colloid cyst which does not appear to be obstructing. Diffuse atrophic changes with findings suggesting chronic microvascular ischemia D/ / Everardo Gomez MD / Everardo Gomez MD Interpreting Provider: Everardo Gomez MD - Assessment and plan (1) Weakness Current Visit: Yes Status: Chronic Assessment and plan: Acute on chronic bilateral weakness. Neurology follows with patient for same and have been consulted. PT/OT consulted. building services technician for safe discharge contacted by ER and are following. Fall risk precautions. (2) Falls frequently Current Visit: Yes Status: Acute Assessment and plan: Plan same as above. (3) Decreased hemoglobin Current Visit: Yes Status: Acute Assessment and plan: Repeat labs in a.m. (4) Chronic kidney disease Current Visit: Yes Status: Chronic Assessment and plan: Currently at baseline, will continue to monitor labs. Renal diet. Qualifiers: Chronic kidney disease stage: unspecified stage Qualified Code(s): N18.9 - Chronic kidney disease, unspecified (5) Type 1 diabetes mellitus Current Visit: Yes Status: Chronic Assessment and plan: ACHS accucheck. Sliding scale insulin. Diabetic diet. Qualifiers: Diabetes mellitus complication status: with unspecified complications Qualified Code(s): E10.8 - Type 1 diabetes mellitus with unspecified complications - Time Spent With Patient Total time spent is greater than 50% in coordination of care (as documented) at patient's floor/unit and/or counseling patient: <Ramon Emmanuel - Last Filed: 04/18/18 06:33> Date of Encounter: 04/18/18 Time of Encounter: 05:40 - Constitutional Constitutional: falls, weakness - EENT Eyes: no change in vision Ears: no tinnitus - Cardiovascular Cardiovascular ROS IM: no chest pain, no dyspnea, no dyspnea on exertion - Respiratory Respiratory: no cough, no wheezing, no chest congestion - Genitourinary Genitourinary: no dysuria, no flank pain - Musculoskeletal Musculoskeletal ROS IM: back pain, muscle weakness, tingling, no arthralgias, no numbness - Neurological Neurological ROS: focal weakness (BLE weakness), frequent falls, no dizziness, no headache(s) - Constitutional Vitals: Temp Pulse Resp BP Pulse Ox 97.5 F L 69 14 165/72 94 04/18/18 04:41 04/18/18 04:41 04/18/18 04:41 04/18/18 04:41 04/18/18 04:41 General appearance: Present: cooperative, A&O X 3, pleasant - Eye Eye exam: Present: PERRL. Absent: scleral icterus Pupils: Present: normal accommodation - ENT ENT exam: Present: mucous membranes dry, normal exam, normal oropharynx - Neck Neck exam general surgery: Present: full ROM, supple. Absent: tenderness, nuchal rigidity, thyromegaly - Respiratory Respiratory exam: Present: CTAB. Absent: chest wall tenderness, rales, rhonchi, wheezes - Cardiovascular Cardiovascular exam: Present: RRR, +S1, +S2. Absent: diastolic murmur, systolic murmur - GI/Abdominal GI/Abdominal exam: Present: soft. Absent: tenderness - Neurological Exam Neurological exam: Present: alert, CN II-XII intact, oriented X3 Additional comments: depressed muscle strength in BLE (roughly 2-3/5) compared to normal strength in BUE (5/5). Internal Med - H&P Results - Labs CBC & Chem 7: 04/18/18 03:18 04/18/18 03:18 Labs: Short CBC 04/17/18 04/18/18 Range/Units 17:07 03:18 WBC 4.2 L 4.3 (4.3-11.1) K/mcL Hgb 10.6 L 9.9 L (11.5-15.4) g/dL Hct 31.7 L 30.0 L (35.3-44.9) % Plt Count 151 145 (140-400) K/mcL Neutrophils # 2.6 2.4 (1.6-8.9) K/mcL BMP 04/17/18 04/18/18 17:07 03:18 Sodium 139 142 Potassium 4.0 3.7 Chloride 104 106 Carbon Dioxide 30 H 27 BUN 36 H 37 H Creatinine 1.27 H 1.24 H Glucose 303 H 335 H Calcium 9.4 8.9 Cardiac Enzymes 04/17/18 Range/Units 17:07 Troponin I 0.03 (< 0.04) ng/mL Urine 04/17/18 Range/Units 18:19 Urine Color Yellow (Yellow) Urine Clarity Cloudy A (Clear) Urine pH 5.0 (5.0-8.0) pH Units Ur Specific [place] 1.016 (1.010-1.025) Urine Protein 100 H (Neg-Trace) mg/dL Urine Glucose (UA) 100 H (Normal) mg/dL - Impressions ITS Impressions Cervical Spine CT 04/17/18 16:39 IMPRESSION: No acute abnormality of the cervical spine. D/ / Les Rivers / Les Rivers Interpreting Provider: Les Rivers Chest X-Ray 04/17/18 16:39 IMPRESSION: No acute cardiopulmonary findings. D/ / Nanda Crespo MD / Nanda Crespo MD Interpreting Provider: Nanda Crespo MD Head CT 04/17/18 16:39 IMPRESSION: No acute intracranial abnormality. Stable hyperattenuating lesion near the foramen of [place]ro could represent a small colloid cyst which does not appear to be obstructing. Diffuse atrophic changes with findings suggesting chronic microvascular ischemia D/ / Everardo Gomez MD / Everardo Gomez MD Interpreting Provider: Everardo Gomez MD - Assessment and plan (1) Falls frequently Current Visit: Yes Status: Acute (2) Weakness Current Visit: Yes Status: Chronic (3) Decreased hemoglobin Current Visit: Yes Status: Acute (4) Chronic kidney disease Current Visit: Yes Status: Chronic Qualifiers: Chronic kidney disease stage: unspecified stage Qualified Code(s): N18.9 - Chronic kidney disease, unspecified (5) Type 1 diabetes mellitus Current Visit: Yes Status: Chronic Qualifiers: Diabetes mellitus complication status: with unspecified complications Qualified Code(s): E10.8 - Type 1 diabetes mellitus with unspecified complications - Time Spent With Patient Total time spent is greater than 50% in coordination of care (as documented) at patient's floor/unit and/or counseling patient: - Attending Attestation I discussed the patient [place], past medical history, lab data, imaging studies, and exam findings with David Treviño CMP. I reviewed her imaging studies and noted that she had moderate spinal stenosis of her lumbar spine 2 years ago. Given her significant weakness in her lower extremities, frequent falls, and severe back pain she reported to me, I recommended ordering repeat lumbar spine MRI to compare if she has had progression of her spinal stenosis compared to 2 years ago. She confirms the back pain, frequent falls, and increasing weakness of her lower extremities. She denies any other focal deficits to suggest any kind of stroke. Depending on the MRI findings, she may need surgical intervention for bulging disc causing spinal stenosis. I explained this to the patient, and she understands and is agreeable to proceed with workup detailed above. Other than my comments above and noted exam findings, I agree with his David Treviño's assessment and plan.
[2018-04-18 04:42] LABS: Hemoglobin 9.9 g/dL (11.5-15.4); Red Blood Count 3.27 M/mcL (3.82-4.97)
[2018-04-18 04:43] LABS: Basophils % 0.9 %; Eosinophils # 0.1 K/mcL (0.0-0.6); Eosinophils % 2.8 %; Immature Granulocytes % 0.7 % (0-4); Lymphocytes # 1.4 K/mcL (0.6-4.6); Lymphocytes % 32.1 %; Mean Corpuscular Hemoglobin 30.3 pg (28.0-33.3); Mean Corpuscular Volume 91.7 fL (83.0-100.0); Mean Platelet Volume 12.8 fL (9.4-12.4); Monocytes # 0.4 K/mcL (0.0-1.3); Monocytes % 8.8 %; Neutrophils # 2.4 K/mcL (1.6-8.9); Platelet Count 145 K/mcL (140-400); Red Cell Distribution Width 14.6 % (11.5-14.5); Segmented Neutrophils % 54.7 %
[2018-04-18 05:02] LABS: Calcium 8.9 mg/dL (8.6-10.3); Potassium 3.7 mEq/L (3.5-5.1)
[2018-04-18] MEDS ORDERED: Cyanocobalamin (B-12) 1,000 MCG/ML VIAL IM SCH (06:45)
[2018-04-18] MEDS ORDERED: Insulin LISPRO 300 UNITS/3 ML VIAL SQ SCH ×2 (07:30→21:00)
[2018-04-18] MEDS: Gabapentin 400 MG CAPSULE PO SCH ×2 (07:38→20:26)
[2018-04-18] MEDS: Colchicine 0.6 MG TABLET PO SCH ×2 (07:38→20:26)
[2018-04-18] MEDS: Hydrocortisone 10 MG TABLET PO SCH ×2 (07:38→20:26)
[2018-04-18] MEDS: *HR* Heparin 5,000 UNIT/ML VIAL SQ SCH ×2 (07:39→17:22)
[2018-04-18] MEDS ORDERED: Metoprolol XL (24 HR) Succ 50 MG TAB.ER.24H PO SCH (09:00)
[2018-04-18] MEDS ORDERED: Bumetanide 1 MG TABLET PO SCH ×2 (09:00→17:00)
[2018-04-18] MEDS ORDERED: (Omega-3/Dha/Epa/Fish Oil [Fish Oil 1,000 Mg Softgel] PO SCH (09:00)
[2018-04-18] MEDS ORDERED: Cholecalciferol (D-3) 1,000 UNIT TABLET PO SCH (09:00)
[2018-04-18] MEDS ORDERED: Multivit/Ca/Min/Fe/FA 1 TAB TABLET PO SCH (09:00)
[2018-04-18] MEDS: Insulin LISPRO 300 UNITS/3 ML VIAL SQ SCH ×2 (12:33→17:22)
--- NOTE | 2018-04-18 13:06 | Internal Med Progress Note ---
Hospitalist Progress Note - Encounter Date of Encounter: 04/18/18 Time of Encounter: 13:04 - Subjective Interval History: Seen and examined at bedside today. Continue to report weakness and shooting pain in bilateral lower extremities. No acute changes overnight. - Exam Vitals: Temp Pulse Resp BP Pulse Ox 97.9 F 68 16 168/62 94 04/18/18 12:04 04/18/18 12:04 04/18/18 12:04 04/18/18 12:04 04/18/18 12:04 Exam: General: Alert and oriented. Skin:Normal color. Chronic blanchable redness to bilateral lower extremities. HEENT:Left pupil round and reactive. No vision in right eye. Cardiovascular:Normal S1 & S2, no rubs, murmurs or gallops. No JVD. Pulse regular. Lungs:Normal breath sounds, no wheezes or crackles. Abdomen:Soft, non-tender, no rigidity. Extremities:No deformity, tenderness, or clubbing. Non pitting edema noted to bilateral lower and upper extremities. Neurological:Normal cognition and motor skills. No sensory alterations, Equal push/pull and squeeze strength BUE, RLE weaker than left which reportedly is chronic for her. GCS 15. Pulses:Carotid and radial pulses normal +2. Rest of the physical exam is non contributory. - Assessment and Plan (1) Weakness Current Visit: Yes Status: Chronic Assessment and Plan: Acute on chronic bilateral weakness, worse in lower extremities Neurology follows with patient for same and have been consulted; thank you, appreciate recommendations etiology of of BLE weakness unclear. 02/01-MRI brain negative for acute abnormality. CT head this admission negative for acute abnormality. MRI lumbar spine pending; consider lumbar stenosis as cause of weakness. MRI lumbar spine 09/30 indicating L4-L5 moderate stenosis Consider consult to Dr. Altamirano depending on results of MRI Continue with Referral to Neurology (neuromuscular) Dr. Lea [facility] in Jul, 2018 PT/OT consulted; notes imparied balance and decreased activity tolerance environmental services specialist for safe discharge contacted by ER and are following. Fall risk precautions Consider discharge to skilled facility-swing bed for inpatient rehabilitation (2) Falls frequently Current Visit: Yes Status: Acute Assessment and Plan: as above. (3) Chronic kidney disease Current Visit: Yes Status: Chronic Assessment and Plan: History of CKD Renal function at baseline, will continue to monitor labs. Renal diet. (4) Type 1 diabetes mellitus Current Visit: Yes Status: Chronic Assessment and Plan: ACHS accucheck. Increase Sliding scale insulin due to hyperglycemia this morning. Diabetic diet. (5) Anemia Current Visit: Yes Status: Acute Assessment and Plan: Chronic normocytic normochromic anemia History of CKD, likely contributing Hematocrit stable No Active bleeding (6) Spinal stenosis at L4-L5 level Current Visit: Yes Status: Acute Assessment and Plan: NOTED on previous study 09/30 --Degenerative changes contribut to moderate spinal canal stenosis as L4-L5 --Degenerative changes also contribute to multilevel neural foraminal narrowing Presents today with worsening lower extremity weakness and falls - Time Spent with Patient Total time spent is greater than 50% in coordination of care (as documented) at patient's floor/unit and/or counseling patient: less than 15 minutes Plan of Care Discussed with: patient Internal Medicine: Result - Labs CBC & Chem 7: 04/18/18 03:18 04/18/18 03:18 Labs: Short CBC 04/17/18 04/18/18 Range/Units 17:07 03:18 WBC 4.2 L 4.3 (4.3-11.1) K/mcL Hgb 10.6 L 9.9 L (11.5-15.4) g/dL Hct 31.7 L 30.0 L (35.3-44.9) % Plt Count 151 145 (140-400) K/mcL Neutrophils # 2.6 2.4 (1.6-8.9) K/mcL BMP 04/17/18 04/18/18 17:07 03:18 Sodium 139 142 Potassium 4.0 3.7 Chloride 104 106 Carbon Dioxide 30 H 27 BUN 36 H 37 H Creatinine 1.27 H 1.24 H Glucose 303 H 335 H Calcium 9.4 8.9 Cardiac Enzymes 04/17/18 Range/Units 17:07 Troponin I 0.03 (< 0.04) ng/mL Urine 04/17/18 Range/Units 18:19 Urine Color Yellow (Yellow) Urine Clarity Cloudy A (Clear) Urine pH 5.0 (5.0-8.0) pH Units Ur Specific [place] 1.016 (1.010-1.025) Urine Protein 100 H (Neg-Trace) mg/dL Urine Glucose (UA) 100 H (Normal) mg/dL - Impressions Impressions Cervical Spine CT 04/17/18 16:39 IMPRESSION: No acute abnormality of the cervical spine. D/ / Les Rivers / Les Rivers Interpreting Provider: Les Rivers Chest X-Ray 04/17/18 16:39 IMPRESSION: No acute cardiopulmonary findings. D/ / Nanda Crespo MD / Nanda Crespo MD Interpreting Provider: Nanda Crespo MD Head CT 04/17/18 16:39 IMPRESSION: No acute intracranial abnormality. Stable hyperattenuating lesion near the foramen of Monro could represent a small colloid cyst which does not appear to be obstructing. Diffuse atrophic changes with findings suggesting chronic microvascular ischemia D/ / Everardo Gomez MD / Everardo Gomez MD Interpreting Provider: Everardo Gomez MD Consult Discharge Plan - Plan Referrals: Cindy Yeager DO [Primary Care Provider] - (3) Chronic kidney disease Qualifiers: Chronic kidney disease stage: unspecified stage Qualified Code(s): N18.9 - Chronic kidney disease, unspecified (4) Type 1 diabetes mellitus Qualifiers: Diabetes mellitus complication status: with unspecified complications Qualified Code(s): E10.8 - Type 1 diabetes mellitus with unspecified complications (5) Anemia Qualifiers: Anemia type: unspecified type Qualified Code(s): D64.9 - Anemia, unspecified
--- NOTE | 2018-04-18 17:22 | Neurology - Consult Note ---
Date of Encounter: 04/18/18 Time of Encounter: 17:21 Assessment and Plan (1) CIDP (chronic inflammatory demyelinating polyneuropathy) Current Visit: Yes Status: Acute So this lady of 72 year old with PMH significant for long standing diabetes, history of Guillain [place] syndrome, CKD who developed worsening of leg weakness bilaterally, in an ascending and spreading fashion moving up to her hands within the last few days. Has questionable diagnosis of Guillain [place] syndrome during October/2017, responding to plasmophoresis therapy per history almost 6 months ago and been doing well until few days ago when leg weakness rather acutely worsened and also involved the hands bilaterally. Since she already had guillain barre more than 8 weeks and has been improving but then relapsed the major consideration would be CIDP. She experiences essentially similar symptoms with hand involvement. The plan would be then LP and likely an inpatient EMG for the diagnosis. She may benefit from plasmophoresis again due to prior favorable response unfortunately we do not have the service here at [facility]. Therefore i would recommend a transfer to [facility] for further evaluation and treatment. She has renal insufficiency there IVig therapy would be second option although this can still be done with renal protective measures. Patient is hemodynaically stable for the transfer. Currently there are no signs of breathing difficulty, no cranial nerve deficits and her mental status appears intact. Total time spend on this patient is approximately 70 minutes and more than 50% were directed at coordination of care History of Present Illness Chief complaint: Leg weakness HPI: Ms. Wyatt is a 72 year old female with PMH significant for long standing type 1 DM, obesity, history of Guillain [place] syndrome, arthritis, acquired hypothyroidism gout CAD chornic fatiue who developed worsening leg weakness and difficulty ambulation. Patient has diagnosis of Guillain [place] syndrome during October/2017 when she developed bilateral leg weakness and she was evaluated and treated at [facility], there apparently she had rathr extensive work up. She was given plasmophoresis 3-4 sessions which helped her leg weakness 'marvelously' and she was able to ambulate until few days ago when she developed again leg weakness and this time the weakness also ascended to her arms and hands bilaterally. The weakness initially started at the right leg and then to her left leg and then her hands as well. She has no mental status changes, no cranial nerve deficits and no speech and swallowing difficulty. It is worth to mention that she has seen Dr. Everardo Herrera, our neurologist here at [facility] 1-2 months who checked some labs including anti GM1, anti MAP and antiacetylcholine receptor antibody which were all returned negative. She was referred by Dr. Herrera to see a neuromuscular specialist at [facility] which was scheduled at . Patient's MRI of lumbar spine was completed and i do see mild disc disease but i see no evidence of significant lumbar spinal canal stenosis or neuroforaminal narrowing. Patient states that when she was at [facility] she was told that she also has renal stage III disease and it then worsened to stage 4 but she has never had hemodialysis. After she had plasmaphoresis her renal function also improved. She did not remember she had LP or EMG or not. Past Med Surg Social Fam HX - Past Medical History Medical history: arthritis, coronary artery disease, CVA, diabetes, glaucoma, hyperlipidemia, hypertension, myocardial infarction, osteoporosis, peripheral artery disease, renal disease, thyroid disease, syncope, TIA Additional medical history: Lymph edema, Charcot Joint Foot, Rt Big Great Toe Amputated, chronic cellulitis, DM type 1, Heart Blockages 95%,95%, and 90%, Endocrine Insufficency, DM Dupuytrenes Contractor, Colitis. Psychiatric history: anxiety, depression - Past Surgical History Surgical History: angioplasty/stent, breast surgery, cataract, vascular surgery - Social History Smoking Status: Never smoker Smokeless Tobacco Status: No Alcohol use: none Drug use: none - Family History Mother Living Status: Cause of : OD Hx Family Cardiac Disorders: No Hx Family Respiratory Disorders: No Hx Family Cancer: No Hx Family GI Disorders: No Hx Family Genitourinary Disorders: No Hx Family Endocrine Disorder: No Hx Family Musculoskeletal Disorders: No Hx Family Neuromuscular Disorders: No Hx Family Neurologic Disorders: No Hx Family HEENT Disorders: No Hx Family Autoimmune Disorders: No Hx Family Reproductive Disorders: No Hx Family Psychosocial Disorders: No Hx Family Medical Disorders: No Father Living Status: Cause of : pancreatic cancer Hx Family Cardiac Disorders: No Hx Family Respiratory Disorders: No Hx Family Cancer: Yes (pancreatic cancer) Hx Family GI Disorders: No Hx Family Genitourinary Disorders: No Hx Family Endocrine Disorder: No Hx Family Musculoskeletal Disorders: No Hx Family Neuromuscular Disorders: No Hx Family Neurologic Disorders: No Hx Family HEENT Disorders: No Hx Family Autoimmune Disorders: No Hx Family Reproductive Disorders: No Hx Family Psychosocial Disorders: No Hx Family Medical Disorders: No Medications and Allergies Cholecalciferol (Vitamin D3) [Vitamin D3] 50,000 unit PO MO 08/14/16 [History] Clopidogrel [Plavix] 75 mg PO HS 08/14/16 [History] Cyanocobalamin (B-12) [Vitamin B12] 1,000 mcg IM QMONTH 08/14/16 [History] Hydrocortisone [Cortef] 5 mg PO BID 08/14/16 [History] Levothyroxine [Synthroid] 88 mcg PO DAILY 08/14/16 [History] Metoprolol XL (24 HR) Succ [Toprol Xl] 50 mg PO DAILY 08/14/16 [History] Latanoprost [Xalatan] 1 drop LEFT EYE HS 11/13/16 [History] Losartan Potassium [Cozaar] 50 mg PO DAILY 03/11/17 [History] Multivitamin [One Daily Multivitamin] 1 tab PO DAILY 03/11/17 [History] Bumetanide [Bumex] 1 mg PO BID 07/23/17 [History] Ferrous Sulfate [Iron] 325 mg PO BID 07/23/17 [History] Colchicine [Mitigare] 0.6 mg PO BID 09/24/17 [History] Insulin Glargine,Hum.rec.anlog [Lantus Solostar] 24 unit SQ DAILY 01/21/18 [History] [place]-3/Dha/Epa/Fish Oil [Fish Oil 1,000 mg Softgel] 2 tab PO DAILY 01/21/18 [History] Gabapentin [Neurontin] 400 mg PO BID 04/17/18 [History] Insulin LISPRO [Admelog Solostar] 0 unit SQ TID 04/17/18 [History] Allergy/AdvReac Type Severity Reaction Status Date / Time adhesive tape Allergy Rash Verified 01/21/18 14:23 insulin isophane (NPH) Allergy Rash Verified 01/21/18 14:23 [From Humulin 70/30] Insulin Regular Allergy Rash Verified 01/21/18 14:23 [From Humulin 70/30] isosorbide [From Imdur] Allergy Rash Verified 01/21/18 14:23 lisinopril Allergy Anaphylaxis Verified 01/21/18 14:23 Gcgattx-Twy-Bst Reductase Allergy Muscle Pain Verified 01/21/18 14:23 Inhibitor [Statins] All Systems: The remainder of the systems were reviewed and are negative Physical Examination - Vital Signs Vital Signs: Initial Vital Signs Temp Pulse Resp BP Pulse Ox 97.8 F 68 22 164/68 100 04/17/18 16:16 04/17/18 16:16 04/17/18 16:16 04/17/18 16:16 04/17/18 16:16 - Constitutional General appearance: comfortable - Neurologic Detailed motor examination: other (So patient is in sitting position comfortably in frontal of dinner tray. She could move her legs and feet, such that she could lift her feet off the floor waiting to be moved passively. her hand digital developer are 4+/5 bilaterally) Motor examination - right side: 4/5: deltoids, biceps, triceps, wrist flexion, wrist extension, recruitment consultant, hip flexors, tibialis Anterior, quadriceps, toe extension (EHL), plantarflexion Motor examination - left side: 4/5: deltoids, biceps, triceps, wrist flexion, wrist extension, hip flexors, recruitment consultant, quadriceps, tibialis Anterior, toe extension (EHL), plantarflexion Detailed sensory examination: intact (stockiing pattern of sensory loss noted bilaterally, symmetrical ) Posture: other (Nne) Reflexes: Biceps: 0, Triceps: 0, Brachioradialis: 0, Patella: 0, Achilles: 0 Mental Status Examination: awake, alert, oriented to person, oriented to place, oriented to time, follows commands appropriately, answers questions appropriately, no agnosia, no aphasia, no aproxia Cranial nerve examination: PERRL, EOMI, visual diaz intact, corneal reflexes brisk symmetrically, sensory to face intact, mastication intact, no facial asymmetry is present, no dysarthria, hearing is intact symmetrically, soft palate elevates bilaterally upon phonation, gag reflex intact, flexes SCM and trapezius muscles symmetrically with full power, tongue protrudes midline, no atrophy or facial fasiculations present Results - Laboratory Findings CBC and BMP: 04/18/18 03:18 04/18/18 03:18 Abnormal lab findings: Abnormal lab results RBC 3.27 M/mcL (3.82-4.97) L 04/18/18 03:18 Hgb 9.9 g/dL (11.5-15.4) L 04/18/18 03:18 Hct 30.0 % (35.3-44.9) L 04/18/18 03:18 RDW 14.6 % (11.5-14.5) H 04/18/18 03:18 MPV 12.8 fL (9.4-12.4) H 04/18/18 03:18 BUN 37 mg/dL (8-23) H 04/18/18 03:18 Creatinine 1.24 mg/dL (0.60-1.20) H 04/18/18 03:18 Est GFR ( Amer) 51 (> 60) L 04/18/18 03:18 Est GFR (Non-Af Amer) 42 (> 60) L 04/18/18 03:18 BUN/Creatinine Ratio 30 (6-26) H 04/18/18 03:18 Glucose 335 mg/dL (70-105) H 04/18/18 03:18 POC Glucose 275 mg/dL (70-99) H 04/18/18 14:48 Calculated Osmolality 316 (280-300) H 04/18/18 03:18 B-Natriuretic Peptide 326 pg/mL (Less than 100) H 04/18/18 03:18 Urine Clarity Cloudy (Clear) A 04/17/18 18:19 Urine Protein 100 mg/dL (Neg-Trace) H 04/17/18 18:19 Urine Glucose (UA) 100 mg/dL (Normal) H 04/17/18 18:19 Urine Blood Moderate (Negative) H 04/17/18 18:19 Ur Leukocyte Esterase Small (Negative) H 04/17/18 18:19 Ur Squamous Epith Cells Many per lpf (None-Few) H 04/17/18 18:19 Ur Culture Indicated? NO. (NO) A 04/17/18 18:19 - Diagnostic Findings Additional findings: EXAMINATION: CT OF THE HEAD WITHOUT CONTRAST 04/17/2018 6:06 pm TECHNIQUE: CT of the head was performed without the administration of intravenous contrast. Dose modulation, iterative reconstruction, and/or weight based adjustment of the mA/kV was utilized to reduce the radiation dose to as low as reasonably achievable. COMPARISON: 12/30/2015 HISTORY: ORDERING SYSTEM PROVIDED HISTORY: fall Dizziness, weakness FINDINGS: BRAIN/VENTRICLES: The ventricles and sulci are diffusely enlarged. Low attenuation is seen in the periventricular and subcortical white matter. No acute intracranial hemorrhage or acute infarct is identified. Stable hyperattenuating lesion near the foramen of Monro. ORBITS: The visualized portion of the orbits demonstrate no acute abnormality. SINUSES: The visualized paranasal sinuses and mastoid air cells demonstrate no acute abnormality. SOFT TISSUES/SKULL: No acute abnormality of the visualized skull or soft tissues. CT/CT head/brain wo con IMPRESSION: No acute intracranial abnormality. Stable hyperattenuating lesion near the foramen of Monro could represent a small colloid cyst which does not appear to be obstructing. Diffuse atrophic changes with findings suggesting chronic microvascular ischemia D/ / Everardo Gomez MD / Everardo Gomez MD Interpreting Provider: Everardo Gomez MD INATION: MRI OF THE LUMBAR SPINE WITHOUT CONTRAST, 04/18/2018 4:53 pm TECHNIQUE: Multiplanar multisequence MRI of the lumbar spine was performed without the administration of intravenous contrast. COMPARISON: None HISTORY: ORDERING SYSTEM PROVIDED HISTORY: Bilateral Lower Extremity Weakness Worsening pain the last 4 weeks, initial evaluation FINDINGS: BONES/ALIGNMENT: There is normal alignment of the spine. The vertebral body heights are maintained. The bone marrow signal appears unremarkable. There is mild degenerative disc disease at L3-4, L4-5, and L5-S1. 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 SPINAL CORD: The conus terminates normally. SOFT TISSUES: No paraspinal mass identified. L1-L2: There is mild facet and ligamentum flavum hypertrophy. The thecal sac and neural foramina are intact. L2-L3: The thecal sac and neural foramina are intact. L3-L4: There is a disc bulge measuring 2-3 mm. There is mild facet and ligamentum flavum hypertrophy. The thecal sac is not stenotic. Disc and/or osteophytes result in mild narrowing of the neural foramina bilaterally. L4-L5: There is a broad-based disc bulge measuring 3-4 mm. There is moderate facet and ligamentum flavum hypertrophy. The thecal sac is moderately stenotic measuring 8 mm. Disc and/or osteophytes result in moderate narrowing of the neural foramina bilaterally. L5-S1: There is a disc protrusion measuring 2-3 mm. The thecal sac is not stenotic. The S1 nerve roots are intact. Disc and/or osteophytes result in mild narrowing of the neural foramina bilaterally. 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 Disc and osteophytes as well as facet and ligamentum flavum hypertrophy contribute to further stenosis of the thecal sac and narrowing of the neural foramina as discussed above. There is moderate stenosis of the thecal sac at L4-5. D/ / 04/18/2018 17:14:30 Lashonda Plaza MD / Alyson Snider Interpreting Provider: Lashonda Plaza MD Consult Discharge Plan - Plan Referrals: Cindy Yeager, [Primary Care Provider] -
--- NOTE | 2018-04-18 19:45 | Electrocardiograph Report ---
[address] [place] [address] Test Date: 2018-04-17 Pat Name: Lina Wyatt Department: [id number] Room: 3B Gender: F Package Pick Up: : 1945 Requested By: Cory Daniel Order Number: [id number] Reading MD: Froilan Heaton Measurements Intervals [place] Rate: 64 P: 13 WA: 201 QRS: 39 QRSD: 102 T: 223 QT: 434 QTc: 448 Interpretive Statements Sinus rhythm Nonspecific T abnormalities, lateral leads Electronically Signed On 04-18-2018 19:43:59 EDT by Froilan Heaton
[2018-04-18] MEDS ORDERED: Latanoprost 2.5 ML BOTTLE LEFT EYE SCH (21:00)
[2018-04-18] MEDS ORDERED: Insulin DETEMIR 100 UNIT/ML X5UNITS SQ SCH (21:00)
--- NOTE | 2018-04-18 21:53 | Discharge Summary ---
Orders not resulted at time of discharge: Pending orders 04/19/18 04:00 Basic Metabolic Panel AM 0400 Complete Blood Count [HEME] AM 0400 04/20/18 04:00 Basic Metabolic Panel AM 0400 Complete Blood Count [HEME] AM 0400 04/21/18 04:00 Basic Metabolic Panel AM 0400 Complete Blood Count [HEME] AM 0400 Date of Encounter: 04/18/18 Time of Encounter: 21:50 - Discharge Diagnosis (1) Falls frequently Priority: Secondary Status: Acute (2) Weakness Priority: Primary Status: Chronic (3) Chronic kidney disease Priority: Secondary Status: Chronic Qualifiers: Chronic kidney disease stage: unspecified stage Qualified Code(s): N18.9 - Chronic kidney disease, unspecified (4) Type 1 diabetes mellitus Priority: Secondary Status: Chronic Qualifiers: Diabetes mellitus complication status: with unspecified complications Qualified Code(s): E10.8 - Type 1 diabetes mellitus with unspecified complications (5) Spinal stenosis at L4-L5 level Priority: Secondary Status: Acute (6) Anemia Priority: Secondary Status: Acute Qualifiers: Anemia type: unspecified type Qualified Code(s): D64.9 - Anemia, unspecif ied Hospital course: Ms. Wyatt is a 72 year old female with medical history significant for CVA, TIA, CAD with stents x2, hypertension, hyperlipidemia, type 1 diabetes, glaucoma, neuropathy, and chronic kidney disease who presents for bilateral lower extremity weakness for past three weeks getting progressively worse. Has chronic right lower extremity weakness and memory loss from deficit from past CVA. Denies any syncope, vision changes, lightheadedness, dizziness, chest pain, shortness of breath, headache, or urinary changes. Has chronic numbness secondary to neuropathy. Weakness has also caused her to have mechanical falls including five falls in the last week. Denies any injury but does admit to hitting her head and neck when falling today. No loss of consciousness, though fall was unwitnessed. Was discharged 04/16/2018 from [facility] following 3 day admission for same, unsure what tests were completed, but states everything came back normal. Denies working with therapy during admission. Follows with [facility] Dr Herrera as she has had similar problems in the past but is now more severe, has pending referral to Neurologist in [place] for July 2018. Lumbar spine MRI was obtained to revaluate previous known spinal canal stenosis which continued to show moderate spinal canal stenosis. [place] [facility] Dr Herrera recommended transfer to facility with further capabilities for suspected Chronic Inflammatory Demyelinating Polyneuropathy. Patient previously treated at [facility] with temporary relief of symptoms with plasmaphoresis. Randy Lubin NOVELTIES SALES REPRESENTATIVE contacted [place] transfer center and patient was accepted for transfer by [facility]. Discussed with patient who is agreeable to transfer. Discharge discussed with: patient - Time Spent with Patient Total time spent providing and/or coordinating discharge services: - Discharge Medications Home Medications: Cholecalciferol (Vitamin D3) [Vitamin D3] 50,000 unit PO MO 08/14/16 [History] Clopidogrel [Plavix] 75 mg PO HS 08/14/16 [History] Cyanocobalamin (B-12) [Vitamin B12] 1,000 mcg IM QMONTH 08/14/16 [History] Hydrocortisone [Cortef] 5 mg PO BID 08/14/16 [History] Levothyroxine [Synthroid] 88 mcg PO DAILY 08/14/16 [History] Metoprolol XL (24 HR) Succ [Toprol Xl] 50 mg PO DAILY 08/14/16 [History] Latanoprost [Xalatan] 1 drop LEFT EYE HS 11/13/16 [History] Losartan Potassium [Cozaar] 50 mg PO DAILY 03/11/17 [History] Multivitamin [One Daily Multivitamin] 1 tab PO DAILY 03/11/17 [History] Bumetanide [Bumex] 1 mg PO BID 07/23/17 [History] Ferrous Sulfate [Iron] 325 mg PO BID 07/23/17 [History] Colchicine [Mitigare] 0.6 mg PO BID 09/24/17 [History] Insulin Glargine,Hum.rec.anlog [Lantus Solostar] 24 unit SQ DAILY 01/21/18 [History] [place]-3/Dha/Epa/Fish Oil [Fish Oil 1,000 mg Softgel] 2 tab PO DAILY 01/21/18 [History] Gabapentin [Neurontin] 400 mg PO BID 04/17/18 [History] Insulin LISPRO [Admelog Solostar] 0 unit SQ TID 04/17/18 [History] Allergies/Adverse Reactions: Allergy/AdvReac Type Severity Reaction Status Date / Time adhesive tape Allergy Rash Verified 01/21/18 14:23 insulin isophane (NPH) Allergy Rash Verified 01/21/18 14:23 [From Humulin 70/30] Insulin Regular Allergy Rash Verified 01/21/18 14:23 [From Humulin 70/30] isosorbide [From Imdur] Allergy Rash Verified 01/21/18 14:23 lisinopril Allergy Anaphylaxis Verified 01/21/18 14:23 Bfyioxi-Wrx-Kyy Reductase Allergy Muscle Pain Verified 01/21/18 14:23 Inhibitor [Statins] Date of admission: 04/17/18 20:34 Primary care physician: Arielle Ma Consults: 04/18/18 00:42 Consult to Physical Therapy [CONS] Routine Comment: Evaluate, develop and implement POC Reason for Consult: Lower extremity weakness. Does patient have active BEDREST order?: No Is patient medically & hemodynamically stable?: Yes 04/18/18 00:43 Consult to Neurology [CONS] Routine Consulting Provider: [facility] Reason for Consult: Bilateral lower extremity weakness. Follows with Dr Herrera, last seen in January for similar symptoms but is now worse, has pending referral to Neurologist in [place] for July 2018. Call Completed: No Consult to Occupational Therapy [CONS] Routine Comment: Evaluate, develop and implement POC Reason for Consult: Lower extremity weakness. Does patient have active BEDREST order?: No Is patient medically & hemodynamically stable?: Yes 04/18/18 00:46 Consult to [employer] [CONS] Routine Reason for SW Consult: services delivery driver already following, consulted by ER. 04/18/18 16:20 Consult to Interventional Radiology [CONS] Routine Consulting Provider: Radiology Interventional [facility]s Reason for Consult: CONCERNS FOR CIDP; NEED SPINAL TAP; ASSESS FOR CELLS AND PROTEIN Time Notified: 16:20 Call Completed: Yes - Constitutional Vitals: Temp Pulse Resp BP Pulse Ox 97.7 F 63 16 170/74 99 04/18/18 18:55 04/18/18 18:55 04/18/18 18:55 04/18/18 18:55 04/18/18 18:55 General appearance: Present: cooperative, A&O X 3, pleasant Exam: General: Alert and oriented. Skin:Normal color. Chronic blanchable redness to bilateral lower extremities. HEENT:Left pupil round and reactive. No vision in right eye. Cardiovascular:Normal S1 & S2, no rubs, murmurs or gallops. No JVD. Pulse regular. Lungs:Normal breath sounds, no wheezes or crackles. Abdomen:Soft, non-tender, no rigidity. Extremities:No deformity, tenderness, or clubbing. Non pitting edema noted to bilateral lower and upper extremities. Neurological:Normal cognition and motor skills. No sensory alterations, Equal push/pull and squeeze strength BUE, RLE weaker than left which reportedly is chronic for her. GCS 15. Pulses:Carotid and radial pulses normal +2. Rest of the physical exam is non contributory. - Patient Status Disposition: Transfer Other Condition: Good Functional capacity at discharge: uses cane/walker Overall status at discharge: patient is not back to baseline - Discharge Instructions Follow Up With: Cindy Yeager DO [Primary Care Provider] -
[2018-04-18 21:57] VITALS: BP 159/63
[2018-04-19] MEDS ORDERED: Insulin LISPRO 300 UNITS/3 ML VIAL SQ SCH (21:00)
== END 2018-04-18 23:26 | disposition other institution (70) ==
LOC: 3BNU 16:15 → EMEROOARM 16:15 → 3BNU 21:47
PROVIDERS: ADMIT Internal Medicine; ATTEND Internal Medicine

== ENCOUNTER 2018-09-09 21:57 | Inpatient (IN) ==
[2018-09-09 22:51] LABS: Basophils # 0.1 K/mcL (0.0-0.2); Basophils % 0.6 %; Eosinophils # 0.3 K/mcL (0.0-0.6); Eosinophils % 3.3 %; Hematocrit 30.4 % (35.3-44.9); Hemoglobin 9.4 g/dL (11.5-15.4); Immature Granulocytes % 0.7 % (0-4); Lymphocytes # 1.6 K/mcL (0.6-4.6); Lymphocytes % 18.8 %; Mean Corpuscular HGB Conc 30.9 g/dL (31.6-35.5); Mean Corpuscular Hemoglobin 30.1 pg (28.0-33.3); Mean Corpuscular Volume 97.4 fL (83.0-100.0); Mean Platelet Volume 10.8 fL (9.4-12.4); Monocytes # 0.6 K/mcL (0.0-1.3); Monocytes % 6.8 %; Platelet Count 219 K/mcL (140-400); Red Blood Count 3.12 M/mcL (3.82-4.97); Red Cell Distribution Width 15.3 % (11.5-14.5); Segmented Neutrophils % 69.8 %
--- NOTE | 2018-09-09 23:05 | Emergency Department Note ---
Disposition Clinical Impression: NSTEMI (non-ST elevated myocardial infarction) CHF exacerbation Qualifiers: Heart failure type: systolic Qualified Code(s): I50.23 - Acute on chronic systolic (congestive) heart failure Disposition: Admitted As Inpatient Condition: Undetermined Referrals: NONE,PCP [Primary Care Provider] - Forms: ED Satisfaction Letter, Work/School Release Time of Disposition: 00:59 General Adult HPI - General Chief complaint: ED General Medical Stated complaint: chest pain Time Seen by Provider: 09/09/18 22:01 Source: patient, EMS Mode of arrival: EMS Limitations: altered mental status Nursing Notes Reviewed: Yes Vital Signs Reviewed: Yes - History of Present Illness HPI Narrative: 72-year-old female with history of dementia arrives to the emergency department with complaint of increased difficulty breathing and alteration in mentation. Patient has baseline alteration in mentation and from [facility] which she came states that she is at baseline. The patient was recently discharged from [facility] where she was admitted with concern for ACS. The patient was having chest pain was found to have a troponin of 12. The patient was admitted to the hospitalon heparin drip. The patient still continued to e xperience mild decrease in her troponin over the course of the past few days afterward. The patient was supposed to have a cardiac catheter when he went to catheter she refused. Patient was subsequently discharged back to the nursing facility. The patient arrives to the emergency department with no active chest pain despite the complaint being on the chart that she is having chest pain. Patient denies any other complaints other than leg swelling and some dyspnea. The patient is lucid intermittently and is answering some questions appropriately. She is alert to person. This apparently is her baseline according to nursing staff and EMS. Patient denies any other complaints at this time. She is otherwise resting comfortably in the room in no acute distress. She does have obvious bilateral lower extremity swelling with 2+ pitting edema bilaterally. Pain Scale: 0 - Related Data Home Medications Medication Instructions Recorded Confirmed Cholecalciferol (Vitamin D3) 50,000 unit PO MO 08/14/16 04/17/18 [Vitamin D3] Clopidogrel [Plavix] 75 mg PO HS 08/14/16 04/17/18 Cyanocobalamin (B-12) [Vitamin B12] 1,000 mcg IM QMONTH 08/14/16 04/17/18 Hydrocortisone [Cortef] 5 mg PO BID 08/14/16 04/17/18 Levothyroxine [Synthroid] 88 mcg PO DAILY 08/14/16 04/17/18 Metoprolol XL (24 HR) Succ [Toprol 50 mg PO DAILY 08/14/16 04/17/18 Xl] Latanoprost [Xalatan] 1 drop LEFT EYE HS 11/13/16 04/17/18 Losartan Potassium [Cozaar] 50 mg PO DAILY 03/11/17 04/17/18 Multivitamin [One Daily 1 tab PO DAILY 03/11/17 04/17/18 Multivitamin] Bumetanide [Bumex] 1 mg PO BID 07/23/17 04/17/18 Ferrous Sulfate [Iron] 325 mg PO BID 07/23/17 04/17/18 Colchicine [Mitigare] 0.6 mg PO BID 09/24/17 04/17/18 Insulin Glargine,Hum.rec.anlog 24 unit SQ DAILY 01/21/18 04/17/18 [Lantus Solostar] [place]-3/Dha/Epa/Fish Oil [Fish Oil 2 tab PO DAILY 01/21/18 04/17/18 1,000 mg Softgel] Gabapentin [Neurontin] 400 mg PO BID 04/17/18 04/17/18 Insulin LISPRO [Admelog Solostar] 0 unit SQ TID 04/17/18 04/17/18 Allergies Allergy/AdvReac Type Severity Reaction Status Date / Time adhesive tape Allergy Rash Verified 01/21/18 14:23 insulin isophane (NPH) Allergy Rash Verified 01/21/18 14:23 [From Humulin 70/30] Insulin Regular Allergy Rash Verified 01/21/18 14:23 [From Humulin 70/30] isosorbide [From Imdur] Allergy Rash Verified 01/21/18 14:23 lisinopril Allergy Anaphylaxis Verified 01/21/18 14:23 Qxyelsy-Oku-Ojs Reductase Allergy Muscle Pain Verified 01/21/18 14:23 Inhibitor [Statins] All systems ED: reviewed and negative except as stated. Constitutional: Reports: weakness. Denies: fever, chills ENT ED: Denies: dysphagia Cardiovascular: Reports: edema. Denies: chest pain, dyspnea on exertion, syncope Respiratory: Reports: dyspnea. Denies: cough, sputum production Gastrointestinal: Denies: abdominal pain, nausea, vomiting Genitourinary: Denies: urgency, dysuria Musculoskeletal: Denies: back pain Integumentary: Denies: rash Neurological: Reports: confusion. Denies: headache Past Medical History - Past Medical History Attestation: Yes The following information was validated with the patient. 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 - Social History Smoking Status: Never smoker Smokeless Tobacco Status: No Alcohol use: Reports: none Drug use: Reports: none Physical Exam - General Limitations: altered mental status General appearance: alert, in no apparent distress - Head Head exam: atraumatic, normocephalic, normal inspection - Eye Eye exam: Present: normal appearance, PERRL, EOMI - ENT ENT exam: normal exam, normal oropharynx, mucous membranes moist - Neck Neck exam: Present: normal inspection, full ROM, trachea midline - Chest Chest inspection: Present: normal inspection, symmetric chest wall rise - Respiratory Respiratory exam: Present: other (Coarse breath sounds). Absent: respiratory distress - Cardiovascular Cardiovascular exam: Present: regular rate, normal rhythm, normal heart sounds - Abdominal Exam Abdominal exam: Present: soft, Non-Tender. Absent: tenderness, distention, guarding, rebound, rigidity - Extremities Exam Extremities exam: Present: full ROM, normal capillary refill, pedal edema (2+ pitting). Absent: tenderness - Neurological Exam Neurological exam: Present: alert, CN II-XII intact - Expanded Neurological Exam Patient oriented to: Present: person Coma Scale Eye Opening: Spontaneous Coma Scale Motor Response: Obeys Commands Coma Scale Verbal Response: Confused Coma Scale Total: 14 - Skin Skin exam: Present: warm, dry, intact, normal color Course Vital Signs Temperature 99.2 F 09/09/18 22:12 Pulse Rate 66 09/09/18 22:12 Respiratory Rate 18 09/09/18 22:12 Blood Pressure 153/50 09/09/18 22:12 O2 Sat by Pulse Oximetry 100 09/09/18 22:12 Temperature 99.2 F 09/09/18 22:12 Pulse Rate 65 09/10/18 00:19 Respiratory Rate 19 09/10/18 00:19 Blood Pressure 128/57 09/10/18 00:19 O2 Sat by Pulse Oximetry 100 09/10/18 00:19 Oxygen Delivery Oxygen Delivery Room Air Medical Decision Making - MDM Narrative Medical decision making narrative: Patient workup in the emergency department demonstrates findings consistent with congestive heart failure as well as an elevated troponin. Patient's troponin has trended downward but I am concerned about patient having congestive heart failure given findings on chest x-ray. The patient was given 324 aspirin here in the ED as well as Lovenox injection. Patient will be admitted to the hospital at this time. Accepted by Dr. Saldivar. - Medical Records Medical records reviewed: Yes I reviewed the patient's medical records. - Lab Data Lab results reviewed: Yes I reviewed the patient's lab results. Result diagrams: 09/09/18 22:43 09/09/18 22:43 Lab Results 09/09/18 09/09/18 09/09/18 Range/Units 22:43 22:43 22:43 WBC 8.7 (4.3-11.1) K/mcL RBC 3.12 L (3.82-4.97) M/mcL Hgb 9.4 L (11.5-15.4) g/dL Hct 30.4 L (35.3-44.9) % MCV 97.4 (83.0-100.0) fL MCH 30.1 (28.0-33.3) pg MCHC 30.9 L (31.6-35.5) g/dL RDW 15.3 H (11.5-14.5) % Plt Count 219 (140-400) K/mcL MPV 10.8 (9.4-12.4) fL Immature Gran % 0.7 (0-4) % Seg Neutrophils % 69.8 % Lymphocytes % 18.8 % Monocytes % 6.8 % Eosinophils % 3.3 % Basophils % 0.6 % Neutrophils # 6.1 (1.6-8.9) K/mcL Lymphocytes # 1.6 (0.6-4.6) K/mcL Monocytes # 0.6 (0.0-1.3) K/mcL Eosinophils # 0.3 (0.0-0.6) K/mcL Basophils # 0.1 (0.0-0.2) K/mcL PT (9.4-12.1) Seconds INR APTT (26.0-36.0) Seconds Sodium 138 (136-145) mEq/L Potassium 4.1 (3.5-5.1) mEq/L Chloride 106 (98-107) mEq/L Carbon Dioxide 26 (23-29) mEq/L BUN 22 (8-23) mg/dL Creatinine 0.87 (0.60-1.20) mg/dL Est GFR ( Amer) > 60 (> 60) Est GFR (Non-Af Amer) > 60 (> 60) BUN/Creatinine Ratio 25 (6-26) Glucose 216 H (70-105) mg/dL Calculated Osmolality 296 (280-300) Lactic Acid (0.5-2.2) mmol/L Calcium 8.9 (8.6-10.3) mg/dL Troponin I 0.55 H* (< 0.04) ng/mL B-Natriuretic Peptide 449 H (Less than 100) pg/mL 09/09/18 09/09/18 Range/Units 22:59 22:59 WBC (4.3-11.1) K/mcL RBC (3.82-4.97) M/mcL Hgb (11.5-15.4) g/dL Hct (35.3-44.9) % MCV (83.0-100.0) fL MCH (28.0-33.3) pg MCHC (31.6-35.5) g/dL RDW (11.5-14.5) % Plt Count (140-400) K/mcL MPV (9.4-12.4) fL Immature Gran % (0-4) % Seg Neutrophils % % Lymphocytes % % Monocytes % % Eosinophils % % Basophils % % Neutrophils # (1.6-8.9) K/mcL Lymphocytes # (0.6-4.6) K/mcL Monocytes # (0.0-1.3) K/mcL Eosinophils # (0.0-0.6) K/mcL Basophils # (0.0-0.2) K/mcL PT 11.1 (9.4-12.1) Seconds INR 1.0 APTT 25.5 L (26.0-36.0) Seconds Sodium (136-145) mEq/L Potassium (3.5-5.1) mEq/L Chloride (98-107) mEq/L Carbon Dioxide (23-29) mEq/L BUN (8-23) mg/dL Creatinine (0.60-1.20) mg/dL Est GFR ( Amer) (> 60) Est GFR (Non-Af Amer) (> 60) BUN/Creatinine Ratio (6-26) Glucose (70-105) mg/dL Calculated Osmolality (280-300) Lactic Acid 1.7 (0.5-2.2) mmol/L Calcium (8.6-10.3) mg/dL Troponin I (< 0.04) ng/mL B-Natriuretic Peptide (Less than 100) pg/mL - Radiology Data Radiology results reviewed: Yes I reviewed the patient's radiology results. - EKG Data EKG #1 EKG attestation: Yes I reviewed and interpreted this EKG. EKG results narrative: Heart rate 67 beats for minute. Normal sinus rhythm. No ST elevation but mild ST depression noted in V5, V6 with inverted T-wave in V4 and V3. No other acute changes noted. Large amount of artifact noted.-
[2018-09-09 23:15] LABS: Prothrombin Time 11.1 Seconds (9.4-12.1)
[2018-09-09 23:16] LABS: BUN/Creatinine Ratio 25 (6-26); Blood Urea Nitrogen 22 mg/dL (8-23); Calcium 8.9 mg/dL (8.6-10.3); Carbon Dioxide 26 mEq/L (23-29); Chloride 106 mEq/L (98-107); Glucose 216 mg/dL (70-105); Neutrophils # 6.1 K/mcL (1.6-8.9); Osmolality,Calculated 296 (280-300); Potassium 4.1 mEq/L (3.5-5.1); Sodium 138 mEq/L (136-145); eGFR For Non-African Americans > 60 (> 60)
[2018-09-09 23:18] LABS: Activated Partial Thrombo Time 25.5 Seconds (26.0-36.0)
[2018-09-09 23:31] LABS: Troponin I 0.55 ng/mL (< 0.04)
[2018-09-09] MEDS ORDERED: Aspirin 325 MG TABLET PO ONE (23:35)
[2018-09-09] MEDS ORDERED: *HR* Enoxaparin 80 MG/0.8 ML SYRINGE SQ STA (23:37)
--- NOTE | 2018-09-10 00:04 | Emergency Department Note ---
Disposition Clinical Impression: NSTEMI (non-ST elevated myocardial infarction) CHF exacerbation Qualifiers: Heart failure type: systolic Qualified Code(s): I50.23 - Acute on chronic systolic (congestive) heart failure Disposition: Admitted As Inpatient Condition: Undetermined Referrals: NONE,PCP [Primary Care Provider] - Forms: ED Satisfaction Letter, Work/School Release General Adult HPI - General Chief complaint: ED General Medical Stated complaint: chest pain Time Seen by Provider: 09/09/18 22:01 Source: patient, EMS Mode of arrival: EMS Limitations: altered mental status - History of Present Illness Pain Scale: 0 - Related Data Home Medications Medication Instructions Recorded Confirmed Cholecalciferol (Vitamin D3) 50,000 unit PO MO 08/14/16 04/17/18 [Vitamin D3] Clopidogrel [Plavix] 75 mg PO HS 08/14/16 04/17/18 Cyanocobalamin (B-12) [Vitamin B12] 1,000 mcg IM QMONTH 08/14/16 04/17/18 Hydrocortisone [Cortef] 5 mg PO BID 08/14/16 04/17/18 Levothyroxine [Synthroid] 88 mcg PO DAILY 08/14/16 04/17/18 Metoprolol XL (24 HR) Succ [Toprol 50 mg PO DAILY 08/14/16 04/17/18 Xl] Latanoprost [Xalatan] 1 drop LEFT EYE HS 11/13/16 04/17/18 Losartan Potassium [Cozaar] 50 mg PO DAILY 03/11/17 04/17/18 Multivitamin [One Daily 1 tab PO DAILY 03/11/17 04/17/18 Multivitamin] Bumetanide [Bumex] 1 mg PO BID 07/23/17 04/17/18 Ferrous Sulfate [Iron] 325 mg PO BID 07/23/17 04/17/18 Colchicine [Mitigare] 0.6 mg PO BID 09/24/17 04/17/18 Insulin Glargine,Hum.rec.anlog 24 unit SQ DAILY 01/21/18 04/17/18 [Lantus Solostar] [place]-3/Dha/Epa/Fish Oil [Fish Oil 2 tab PO DAILY 01/21/18 04/17/18 1,000 mg Softgel] Gabapentin [Neurontin] 400 mg PO BID 04/17/18 04/17/18 Insulin LISPRO [Admelog Solostar] 0 unit SQ TID 04/17/18 04/17/18 Allergies Allergy/AdvReac Type Severity Reaction Status Date / Time adhesive tape Allergy Rash Verified 01/21/18 14:23 insulin isophane (NPH) Allergy Rash Verified 01/21/18 14:23 [From Humulin 70/30] Insulin Regular Allergy Rash Verified 01/21/18 14:23 [From Humulin 70/30] isosorbide [From Imdur] Allergy Rash Verified 01/21/18 14:23 lisinopril Allergy Anaphylaxis Verified 01/21/18 14:23 Sppwlqe-Zrg-Rbr Reductase Allergy Muscle Pain Verified 01/21/18 14:23 Inhibitor [Statins] Constitutional: Reports: weakness. Denies: fever, chills ENT ED: Denies: dysphagia Cardiovascular: Reports: edema. Denies: chest pain, dyspnea on exertion, syncope Respiratory: Reports: dyspnea. Denies: cough, sputum production Gastrointestinal: Denies: abdominal pain, nausea, vomiting Genitourinary: Denies: urgency, dysuria Musculoskeletal: Denies: back pain Integumentary: Denies: rash Neurological: Reports: confusion. 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 - Social History Smoking Status: Never smoker Smokeless Tobacco Status: No Alcohol use: Reports: none Drug use: Reports: none Physical Exam - General Limitations: altered mental status General appearance: alert, in no apparent distress Course Vital Signs Temperature 99.2 F 09/09/18 22:12 Pulse Rate 66 09/09/18 22:12 Respiratory Rate 18 09/09/18 22:12 Blood Pressure 153/50 09/09/18 22:12 O2 Sat by Pulse Oximetry 100 09/09/18 22:12 Temperature 99.2 F 09/09/18 22:12 Pulse Rate 66 09/09/18 22:12 Respiratory Rate 18 09/09/18 22:12 Blood Pressure 153/50 09/09/18 22:12 O2 Sat by Pulse Oximetry 100 09/09/18 22:12 Oxygen Delivery Oxygen Delivery Room Air Medical Decision Making - Lab Data Result diagrams: 09/09/18 22:43 09/09/18 22:43 Lab Results 09/09/18 09/09/18 09/09/18 Range/Units 22:43 22:43 22:43 WBC 8.7 (4.3-11.1) K/mcL RBC 3.12 L (3.82-4.97) M/mcL Hgb 9.4 L (11.5-15.4) g/dL Hct 30.4 L (35.3-44.9) % MCV 97.4 (83.0-100.0) fL MCH 30.1 (28.0-33.3) pg MCHC 30.9 L (31.6-35.5) g/dL RDW 15.3 H (11.5-14.5) % Plt Count 219 (140-400) K/mcL MPV 10.8 (9.4-12.4) fL Immature Gran % 0.7 (0-4) % Seg Neutrophils % 69.8 % Lymphocytes % 18.8 % Monocytes % 6.8 % Eosinophils % 3.3 % Basophils % 0.6 % Neutrophils # 6.1 (1.6-8.9) K/mcL Lymphocytes # 1.6 (0.6-4.6) K/mcL Monocytes # 0.6 (0.0-1.3) K/mcL Eosinophils # 0.3 (0.0-0.6) K/mcL Basophils # 0.1 (0.0-0.2) K/mcL PT (9.4-12.1) Seconds INR APTT (26.0-36.0) Seconds Sodium 138 (136-145) mEq/L Potassium 4.1 (3.5-5.1) mEq/L Chloride 106 (98-107) mEq/L Carbon Dioxide 26 (23-29) mEq/L BUN 22 (8-23) mg/dL Creatinine 0.87 (0.60-1.20) mg/dL Est GFR ( Amer) > 60 (> 60) Est GFR (Non-Af Amer) > 60 (> 60) BUN/Creatinine Ratio 25 (6-26) Glucose 216 H (70-105) mg/dL Calculated Osmolality 296 (280-300) Lactic Acid (0.5-2.2) mmol/L Calcium 8.9 (8.6-10.3) mg/dL Troponin I 0.55 H* (< 0.04) ng/mL B-Natriuretic Peptide 449 H (Less than 100) pg/mL 09/09/18 09/09/18 Range/Units 22:59 22:59 WBC (4.3-11.1) K/mcL RBC (3.82-4.97) M/mcL Hgb (11.5-15.4) g/dL Hct (35.3-44.9) % MCV (83.0-100.0) fL MCH (28.0-33.3) pg MCHC (31.6-35.5) g/dL RDW (11.5-14.5) % Plt Count (140-400) K/mcL MPV (9.4-12.4) fL Immature Gran % (0-4) % Seg Neutrophils % % Lymphocytes % % Monocytes % % Eosinophils % % Basophils % % Neutrophils # (1.6-8.9) K/mcL Lymphocytes # (0.6-4.6) K/mcL Monocytes # (0.0-1.3) K/mcL Eosinophils # (0.0-0.6) K/mcL Basophils # (0.0-0.2) K/mcL PT 11.1 (9.4-12.1) Seconds INR 1.0 APTT 25.5 L (26.0-36.0) Seconds Sodium (136-145) mEq/L Potassium (3.5-5.1) mEq/L Chloride (98-107) mEq/L Carbon Dioxide (23-29) mEq/L BUN (8-23) mg/dL Creatinine (0.60-1.20) mg/dL Est GFR ( Amer) (> 60) Est GFR (Non-Af Amer) (> 60) BUN/Creatinine Ratio (6-26) Glucose (70-105) mg/dL Calculated Osmolality (280-300) Lactic Acid 1.7 (0.5-2.2) mmol/L Calcium (8.6-10.3) mg/dL Troponin I (< 0.04) ng/mL B-Natriuretic Peptide (Less than 100) pg/mL Attestation Statement - Attestation Attestation: I examined this patient and my medical decision-making was reviewed with the Resident Physician. I agree with the documented findings, disposition and treatment plan as described except to the extent set forth below. 72 charlene guzman female presents to the ED with complaints of chest pain and was orignially admitted at another faciliy with a troponin of 12 and reccomended to have cardiac catherization and she declined and left AMA. Hortensia has a troponin of 0.55 now without evidence of ischemic changes on EKG. We will admit to medicine. ASA therapy given. appears to have CHF with a a BNP of 400s
[2018-09-10] MEDS ORDERED: Isovue-370 500 ML BOTTLE IVP ONE (09:11)
[2018-09-10] MEDS ORDERED: D5% in Water 1,000 ML IVC PRN ×2 (09:14→09:19)
[2018-09-10] MEDS ORDERED: *HR* Dextrose 50 % in Water (Syg) 50 ML SYRINGE IVP PRN ×2 (09:14→09:19)
[2018-09-10] MEDS ORDERED: Dextrose Gel 15 GM/37.5 ML TUBE PO PRN ×4 (09:14→09:19)
[2018-09-10] MEDS ORDERED: Naloxone 0.4 MG/ML INJ IVP PRN (11:11)
[2018-09-10] MEDS ORDERED: Ondansetron 4 MG/2 ML VIAL IVP PRN (11:11)
[2018-09-10] MEDS ORDERED: *HR* Ticagrelor 90 MG TABLET PO ONE (11:18)
--- NOTE | 2018-09-10 11:24 | Internal Med History&Physical ---
Date of Encounter: 09/10/18 Time of Encounter: 11:22 Internal Medicine - H&P: HPI Chief complaint: chest pain Admitted From: Intrahospital Transfer History of present illness: this is a 72 yof who lives at rehab since Jun, pt stated whenver she gets cap she would be weak and can't move. She been making sme progress and she is able to walk about 200 feet with walker. Pt stated that she strted to have some chest pain that went way then she was sent to OSH, whom she did not trust. She stated that she wanted to come to [place] but given the DE she was taken to OSH, and she was seen by card there found toha ve torp of 12. [facility], she in fact refused all care because they tried to get her into their rehab program. Pt had been chest pain since came there, pt did get lovneox form out side ER. becuase she declined all treatment she was sent here. No fever, no chill, no N/V, no abd pain, no active chest pain crrentl, no toher allevaiting or aggrevating factors. Past Med Surg Social Fam HX - Past Medical History Medical history: arthritis, coronary artery disease, CVA, diabetes, glaucoma, hyperlipidemia, hypertension, myocardial infarction, osteoporosis, peripheral artery disease, renal disease, thyroid disease, syncope, TIA Additional medical history: Lymph edema, Charcot Joint Foot, Rt Big Great Toe Amputated, chronic cellulitis, DM type 1, Heart Blockages 95%,95%, and 90%, Endo crine Insufficency, DM Dupuytrenes Contractor, Colitis. Psychiatric history: anxiety, depression - Past Surgical History Surgical History: angioplasty/stent, breast surgery, cataract, vascular surgery - Social History Smoking Status: Never smoker Smokeless Tobacco Status: No Alcohol use: none Drug use: none - Family History Mother Living Status: Hx Family Cardiac Disorders: No Hx Family Respiratory Disorders: No Hx Family Cancer: No Hx Family GI Disorders: No Hx Family Endocrine Disorder: No Hx Family Neuromuscular Disorders: No Hx Family Neurologic Disorders: No Hx Family HEENT Disorders: No Hx Family Autoimmune Disorders: No Father Living Status: Hx Family Cardiac Disorders: No Hx Family Respiratory Disorders: No Hx Family Cancer: Yes (pancreatic cancer) Hx Family GI Disorders: No Hx Family Endocrine Disorder: No Hx Family Neuromuscular Disorders: No Hx Family Neurologic Disorders: No Hx Family HEENT Disorders: No Hx Family Autoimmune Disorders: No Internal Medicine - H&P: Meds Cholecalciferol (Vitamin D3) [Vitamin D3] 50,000 unit PO MO 08/14/16 [History] Clopidogrel [Plavix] 75 mg PO HS 08/14/16 [History] Cyanocobalamin (B-12) [Vitamin B12] 1,000 mcg IM QMONTH 08/14/16 [History] Hydrocortisone [Cortef] 5 mg PO BID 08/14/16 [History] Levothyroxine [Synthroid] 88 mcg PO DAILY 08/14/16 [History] Metoprolol XL (24 HR) Succ [Toprol Xl] 50 mg PO DAILY 08/14/16 [History] Latanoprost [Xalatan] 1 drop LEFT EYE HS 11/13/16 [History] Losartan Potassium [Cozaar] 50 mg PO DAILY 03/11/17 [History] Multivitamin [One Daily Multivitamin] 1 tab PO DAILY 03/11/17 [History] Bumetanide [Bumex] 1 mg PO BID 07/23/17 [History] Ferrous Sulfate [Iron] 325 mg PO BID 07/23/17 [History] Colchicine [Mitigare] 0.6 mg PO BID 09/24/17 [History] Insulin Glargine,Hum.rec.anlog [Lantus Solostar] 24 unit SQ DAILY 01/21/18 [Hist ory] [place]-3/Dha/Epa/Fish Oil [Fish Oil 1,000 mg Softgel] 2 tab PO DAILY 01/21/18 [History] Gabapentin [Neurontin] 400 mg PO BID 04/17/18 [History] Insulin LISPRO [Admelog Solostar] 0 unit SQ TID 04/17/18 [History] Allergy/AdvReac Type Severity Reaction Status Date / Time adhesive tape Allergy Rash Verified 01/21/18 14:23 insulin isophane (NPH) Allergy Rash Verified 01/21/18 14:23 [From Humulin 70/30] Insulin Regular Allergy Rash Verified 01/21/18 14:23 [From Humulin 70/30] isosorbide [From Imdur] Allergy Rash Verified 01/21/18 14:23 lisinopril Allergy Anaphylaxis Verified 01/21/18 14:23 Pfyodtm-Iba-Raa Reductase Allergy Muscle Pain Verified 01/21/18 14:23 Inhibitor [Statins] All Systems PM: A 10-system review of systems was performed and is negative for pertinent findings except as documented above in the HPI. - Constitutional Constitutional: no lethargy, no malaise, no night sweats - EENT Eyes: no loss of vision, no pain, no photophobia Ears: no ear discharge, no ear pain, no tinnitus Nose, mouth and throat: no odynophagia, no sinus pain, no sinus pressure - Breasts Breasts: no pain, no nipple discharge, no swelling - Cardiovascular Cardiovascular ROS IM: no irregular heart rhythm, no lightheadedness, no orthopnea - Respiratory Respiratory: no pain on inspiration, no chest congestion, no excessive phlegm production - Gastrointestinal Gastrointestinal: no fecal incontinence, no heartburn, no loose stools - Genitourinary Genitourinary: no post void dribbling, no sexual dysfunction, no urinary incontinence - Musculoskeletal Musculoskeletal ROS IM: no numbness, no stiffness, no tingling - Integumentary Integumentary IM: as per HPI, no rash, no skin ulcer, no jaundice - Neurological Neurological ROS: confusion, disequilibrium, focal weakness, no lack of coordination, no loss of vision, no paresthesias, no radicular pain - Psychiatric Psychiatric: no paranoia, no suicidal ideation, no visual hallucinations - Endocrine Endocrine IM: no heat intolerance, no polyphagia, no polyuria - Constitutional Vitals: Temp Pulse Resp BP Pulse Ox 98.5 F 66 16 168/60 100 09/10/18 11:05 09/10/18 11:05 09/10/18 11:05 09/10/18 11:05 09/10/18 11:05 Exam: see below - Head Head exam: Present: atraumatic, normal inspection - Eye Eye exam: Present: EOMI, normal appearance. Absent: nystagmus, periorbital tenderness, PERRL Pupils: Present: PERRL - Neck Neck exam general surgery: Present: full ROM. Absent: lymphadenopathy, normal inspection, tenderness - Respiratory Respiratory exam: Present: CTAB. Absent: accessory muscle use, chest wall tenderness, decreased breath sounds - Cardiovascular Cardiovascular exam: Present: JVD, RRR, +S1, +S2. Absent: systolic murmur, tachycardia - GI/Abdominal GI/Abdominal exam: Present: normal bowel sounds, soft. Absent: diminished bowel sounds, distended, pulsatile mass, rebound, rigid - Extremities Exam Extremities exam: Absent: calf tenderness, cyanotic, full ROM - Back Exam Back exam: Absent: CVA tenderness (L), CVA tenderness (R) - Neurological Exam Neurological exam: Present: CN II-XII intact, motor sensory deficit, normal gait, oriented X3 - Psychiatric Psychiatric exam: Absent: agitated, anxious, depressed - Skin Skin exam: Absent: excoriation, intact, mottled, normal color Internal Med - H&P Results - Labs CBC & Chem 7: 09/09/18 22:43 09/09/18 22:43 Labs: Short CBC 09/09/18 Range/Units 22:43 WBC 8.7 (4.3-11.1) K/mcL Hgb 9.4 L (11.5-15.4) g/dL Hct 30.4 L (35.3-44.9) % Plt Count 219 (140-400) K/mcL Neutrophils # 6.1 (1.6-8.9) K/mcL BMP 09/09/18 22:43 Sodium 138 Potassium 4.1 Chloride 106 Carbon Dioxide 26 BUN 22 Creatinine 0.87 Glucose 216 H Calcium 8.9 Cardiac Enzymes 09/09/18 09/10/18 Range/Units 22:43 07:29 Troponin I 0.55 H* 0.47 H* (< 0.04) ng/mL - Impressions ITS Impressions Chest X-Ray 09/09/18 22:02 IMPRESSION: Findings congestive heart failure. Calcific atherosclerotic disease aorta. D/ / Dallas Goldberg / Dallas Goldberg Interpreting Provider: Dallas Goldberg Chest CTA 09/10/18 09:11 IMPRESSION: No central pulmonary embolus Bilateral pleural effusions and septal thickening, compatible with pulmonary edema. Scattered small mediastinal nodes are noted, likely reactive Small mediastinal nodes, likely reactive. There is mucous plugging-bronchial wall thickening in the lower lobe airways Coronary artery disease Cholelithiasis. Small hiatal hernia is seen with nonspecific thickening at the GE junction D/ / Félix Bentley MD / Félix Bentley MD Interpreting Provider: Félix Bentley MD - Assessment and Plan (1) NSTEMI (non-ST elevated myocardial infarction) Current Visit: Yes Status: Acute - Summary of Assessment and Plan Summary of Assessment and Plan: this is a 72 yof who lives at rehab since Jun, pt stated whenver she gets cap she would be weak and can't move. She been making sme progress and she is able to walk about 200 feet with walker. Pt stated that she strted to have some chest pain that went way then she was sent to OSH, whom she did not trust. She stated that she wanted to come to [place] but given the DE she was taken to OSH, and she was seen by card there found toha ve torp of 12. [facility], she in fact refused all care because they tried to get her into their rehab program. Pt had been chest pain since came there, pt did get lovneox form out side ER. becuase she declined all treatment she was sent here. No fever, no chill, no N/V, no abd pain, no active chest pain crrentl, no toher allevaiting or aggrevating factors. A+P: 1) NSTEMI: pt REFUSED kayleigh at OSH and requestin our card to be seen, i have voiceraed the card service vocational technical education director Mean whie cont lonveox, beta crow, asa and also brillitna loading as well. Pt has no current chest pain, will get another EKG as well. Will give pt high statin as well. 2) DM: NPO in case card wants to take the pt to [facility] will do sliding scale Q6 3)code: will leave her alone in the evnt she has no pulse will honro pt's wishes 4)diet: NPO for now 5)debility: will ask PT/OT to see pt pt is from rehab 6)dispo: await card to see pt, on lovenox currenlty. Time; 45 min with50% sepnt by bedside - Time Spent With Patient Total time spent is greater than 50% in coordination of care (as documented) at patient's floor/unit and/or counseling patient:
[2018-09-10] MEDS ORDERED: Insulin LISPRO 300 UNITS/3 ML VIAL SQ SCH ×2 (12:00→21:00)
[2018-09-10] MEDS: Furosemide 20 MG/2 ML VIAL IVP SCH ×2 (12:05→16:42)
--- NOTE | 2018-09-10 14:56 | Cardiology Consult Note ---
<Lila Bates - Last Filed: 09/10/18 15:36> Date of Encounter: 09/10/18 Time of Encounter: 14:00 Assessment and Plan (1) CHF (congestive heart failure) Current Visit: Yes Status: Acute Per cardiology: -Known diastolic CHF. -Chest x-ray with CHF. -BNP 449. -Reports increased edema. -Last TTE [facility] 2014 with LVEF 55-60%, no wall motion abnormalities. -On IV lasix, currently net negative 500ml. -Agree with IV diuresis. -Strict i/os, fluid restriction, daily weights. -Will repeat TTE. Qualifiers: Heart failure type: diastolic Heart failure chronicity: acute on chronic Qualified Code(s): I50.33 - Acute on chronic diastolic (congestive) heart failure (2) Elevated troponin Current Visit: Yes Status: Acute Per cardiology: -Troponins 0.55, 0.47. Recent NSTEMI [facility] with troponin 9.55 09/06/18. Patient had refused LHC and was medically treated with heparin drip. -Denies chest pain. -No acute ischemic ECG changes noted. -LHC 2012 with 90% diffusely diseased LAD small vessel, 80% diagonal small small vessel, 40% proximal circ, 80% OM1 small vessel, 30% mid RCA. -Last TTE [facility] 2014 with LVEF 55-60%, no wall motion abnormalities. -On statin, bb, therapeutic lovenox. -Troponins down trending from recent NSTEMI that was medically managed. No cardiac rehab consult warranted. -Will repeat TTE. -Will start ASA and plavix. Monitor H/H closely. Will discontinue therapeutic lovenox, as patient was already medically treated for NSTEMI at [facility]. Discussion w patient/family: The assessment and plan as outlined above was discussed with the patient who expressed understanding and agreement. All questions were answered. Thank you for involving us in the care of your patient. Please call with any questions. Discussed and reviewed with . History of Present Illness Consult date: 09/10/18 Requesting physician: Rd Garcia Consult reason: NSTEMI Chief complaint: shortness of breath History of present illness: Ms. Wyatt is a 72 year old female with a relevant past medical history of CAD, DM, hypothyroidism, CHF, lymphedema, arthritis, neuropathy, CKD stage 3, HTN, OH, gout, who presented to [facility] with elevated BP and blood sugars at [facility]. Patient was recently admitted to [facility] with NSTEMI, reportedly patient refused C. Patient denies chest pain. Reports increased shortness of breath. Unable to state whether she has increased edema or not. States breathing is somewhat improved currently. Past Med Surg Social Fam HX - Past Medical History Attestation: Yes The following information was validated with the patient. Source: patient, old records reviewed Medical history: arthritis, coronary artery disease, CVA, diabetes, glaucoma, hyperlipidemia, hypertension, myocardial infarction, osteoporosis, peripheral artery disease, renal disease, thyroid disease, syncope, TIA Additional medical history: Lymph edema, Charcot Joint Foot, Rt Big Great Toe Amputated, chronic cellulitis, DM type 1, Heart Blockages 95%,95%, and 90%, Endocrine Insufficency, DM Dupuytrenes Contractor, Colitis. Psychiatric history: anxiety, depression - Past Surgical History Surgical History: angioplasty/stent, breast surgery, cataract, vascular surgery - Social History Smoking Status: Never smoker Smokeless Tobacco Status: No Alcohol use: none Drug use: none - Family History Mother Living Status: Hx Family Cardiac Disorders: No Hx Family Respiratory Disorders: No Hx Family Cancer: No Hx Family GI Disorders: No Hx Family Endocrine Disorder: No Hx Family Neuromuscular Disorders: No Hx Family Neurologic Disorders: No Hx Family HEENT Disorders: No Hx Family Autoimmune Disorders: No Father Living Status: Hx Family Cardiac Disorders: No Hx Family Respiratory Disorders: No Hx Family Cancer: Yes (pancreatic cancer) Hx Family GI Disorders: No Hx Family Endocrine Disorder: No Hx Family Neuromuscular Disorders: No Hx Family Neurologic Disorders: No Hx Family HEENT Disorders: No Hx Family Autoimmune Disorders: No Medications and Allergies Cholecalciferol (Vitamin D3) [Vitamin D3] 50,000 unit PO MO 08/14/16 [History] Clopidogrel [Plavix] 75 mg PO HS 08/14/16 [History] Cyanocobalamin (B-12) [Vitamin B12] 1,000 mcg IM QMONTH 08/14/16 [History] Hydrocortisone [Cortef] 5 mg PO BID 08/14/16 [History] Levothyroxine [Synthroid] 88 mcg PO DAILY 08/14/16 [History] Metoprolol XL (24 HR) Succ [Toprol Xl] 50 mg PO DAILY 08/14/16 [History] Latanoprost [Xalatan] 1 drop LEFT EYE HS 11/13/16 [History] Losartan Potassium [Cozaar] 50 mg PO DAILY 03/11/17 [History] Multivitamin [One Daily Multivitamin] 1 tab PO DAILY 03/11/17 [History] Bumetanide [Bumex] 1 mg PO BID 07/23/17 [History] Ferrous Sulfate [Iron] 325 mg PO BID 07/23/17 [History] Colchicine [Mitigare] 0.6 mg PO BID 09/24/17 [History] Insulin Glargine,Hum.rec.anlog [Lantus Solostar] 24 unit SQ DAILY 01/21/18 [Hist ory] [place]-3/Dha/Epa/Fish Oil [Fish Oil 1,000 mg Softgel] 2 tab PO DAILY 01/21/18 [History] Gabapentin [Neurontin] 400 mg PO BID 04/17/18 [History] Insulin LISPRO [Admelog Solostar] 0 unit SQ TID 04/17/18 [History] Allergy/AdvReac Type Severity Reaction Status Date / Time adhesive tape Allergy Rash Verified 01/21/18 14:23 insulin isophane (NPH) Allergy Rash Verified 01/21/18 14:23 [From Humulin 70/30] Insulin Regular Allergy Rash Verified 01/21/18 14:23 [From Humulin 70/30] isosorbide [From Imdur] Allergy Rash Verified 01/21/18 14:23 lisinopril Allergy Anaphylaxis Verified 01/21/18 14:23 Jzdgpax-Aem-Pwv Reductase Allergy Muscle Pain Verified 01/21/18 14:23 Inhibitor [Statins] All Systems Review: The remainder of the systems were reviewed and are negative - Cardiovascular Cardiovascular: as per HPI, dyspnea on exertion Physical Examination Vital Signs, Last 4 Hours Temp Pulse Resp BP Pulse Ox 09/10/18 11:05 98.5 F 66 16 168/60 100 General: Conversant, No Apparent Distress HEENT: Atraumatic, Normocephaly, Mucus Membranes Moist Neck: No JVD, Normal carotid pulses Cardiac: Reg Rate and Rhythm, Normal S1 and S2, No Murmur Lungs: Normal Breath Sounds, No Wheeze, Rales, Rhonchi Neuro: Alert and responsive, Other (Able to state person and place. Appears somewhat confused. ) Abdomen: Soft, Non-Tender Skin: No rashes noted on visualized skin Musculoskeletal: No Chest Wall Tenderness Extremities: No Clubbing, No Cyanosis, No Edema, Normal Pulses Results 09/09/18 22:43 09/09/18 22:43 Lab Results Impressions Chest X-Ray 09/09/18 22:02 IMPRESSION: Findings congestive heart failure. Calcific atherosclerotic disease aorta. D/ / Dallas Goldberg / Dallas Goldberg Interpreting Provider: Dallas Goldberg Chest CTA 09/10/18 09:11 IMPRESSION: No central pulmonary embolus Bilateral pleural effusions and septal thickening, compatible with pulmonary edema. Scattered small mediastinal nodes are noted, likely reactive Small mediastinal nodes, likely reactive. There is mucous plugging-bronchial wall thickening in the lower lobe airways Coronary artery disease Cholelithiasis. Small hiatal hernia is seen with nonspecific thickening at the GE junction D/ / Félix Bentley MD / Félix Bentley MD Interpreting Provider: Félix Bentley MD Active Medications Atorvastatin Calcium (Lipitor) 80 mg PO HS TAN Stop: 03/12/19 11:31 Last Admin: 09/10/18 11:54 Dose: 80 mg Dextrose/Water (Dextrose 50% (Syg)) 25 ml IVP AD PRN PRN Reason: Hypoglycemia Stop: 03/12/19 09:15 Dextrose/Water (Dextrose 50% (Syg)) 25 ml IVP AD PRN PRN Reason: Hypoglycemia Stop: 03/12/19 09:20 Docusate Sodium (Colace) 100 mg PO BID TAN Stop: 03/12/19 21:01 Enoxaparin Sodium (Lovenox) 80 mg 1 mg/kg (80 mg) SQ Q12HR TAN; Protocol Stop: 03/12/19 18:01 Furosemide (Lasix) 20 mg IVP BIDDIURETIC TAN Stop: 03/12/19 11:31 Last Admin: 09/10/18 12:05 Dose: 20 mg Glucagon (Glucagen) 1 mg IM ONCE PRN PRN Reason: Hypoglycemia Stop: 03/12/19 09:15 Glucagon (Glucagen) 1 mg IM ONCE PRN PRN Reason: Hypoglycemia Stop: 03/12/19 09:20 Glucose (Gluctose) 15 gm PO ONCE PRN PRN Reason: Hypoglycemia Stop: 03/12/19 09:15 Glucose (Gluctose) 30 gm PO ONCE PRN PRN Reason: Hypoglycemia Stop: 03/12/19 09:15 Glucose (Gluctose) 15 gm PO ONCE PRN PRN Reason: Hypoglycemia Stop: 03/12/19 09:20 Glucose (Gluctose) 30 gm PO ONCE PRN PRN Reason: Hypoglycemia Stop: 03/12/19 09:20 Dextrose (Dextrose 5%) 1,000 mls @ 100 mls/hr IVC .Q10H PRN PRN Reason: HYPOGLYCEMIA Stop: 03/12/19 09:15 Dextrose (Dextrose 5%) 1,000 mls @ 100 mls/hr IVC .Q10H PRN PRN Reason: HYPOGLYCEMIA Stop: 03/12/19 09:20 Insulin Human Lispro (Humalog) 0 units SQ Q6HR TAN; Protocol Stop: 03/12/19 12:01 Last Admin: 09/10/18 12:07 Dose: 10 units Metoprolol Tartrate (Lopressor) 25 mg PO BID TAN Stop: 03/12/19 11:31 Last Admin: 09/10/18 11:54 Dose: 25 mg Naloxone HCl (Narcan) 0.4 mg IVP Q2M PRN PRN Reason: SEE COMMENTS Stop: 03/12/19 11:12 Ondansetron HCl (Zofran) 4 mg IVP Q8HR PRN PRN Reason: Nausea And Vomiting Stop: 03/12/19 11:12 Laboratory Tests 09/09/18 09/09/18 09/09/18 22:43 22:43 22:43 Hgb 9.4 L Creatinine 0.87 Troponin I 0.55 H* B-Natriuretic Peptide 449 H 09/10/18 07:29 Hgb Creatinine Troponin I 0.47 H* B-Natriuretic Peptide - Imaging and Cardiology Chest Xray: report reviewed Echo: pending, report reviewed Cardiac cath: report reviewed - EKG Interpretation EKG results cardiology: personally reviewed (ECG with SR, HR 67. Non-specific ST and T wave abnormalities noted), other (Telemetry reviewed with average HR previous 12 hours noted to be 63, SR. PACs noted.) Consult Discharge Plan - Plan Referrals: NONE,PCP [Primary Care Provider] - <KelseykaneKay - Last Filed: 09/10/18 16:26> Date of Encounter: 09/10/18 - Attending Attestation I examined this patient and my medical decision-making was reviewed with the TALENT ACQUISITION SPECIALIST. I agree with the documented findings, disposition and treatment plan as described. Ms. Wyatt presents from nursing facility for elevated BP and blood sugars. Recently hospitalized at [facility] with NSTEMI. Reportedly, patient declined LHC. Troponin elevation this admission likely represents downtrend from [facility] admission. Requesting complete records. ECG no new or acute findings. LHC [place] 2012 demonstrated severe CAD with small vessels not amenable to PCI. At the bedside the patient is alert and conversant, slow in thought and limited in insight into her medical condition. She denies having active chest pain. When queried about LHC at [facility], she states she did not want to have it done there but when asked if she would want it done, she is not forthcoming in her answer. Of note, she has declined lab draws during her admission here. She cannot tell me if she has a POA. Given LHC findings in 2012 and her recent refusal of medical care, would recommend conservative medical management. Await echo findings to help guide management. Assessment and Plan Discussion w patient/family: The assessment and plan as outlined above was discussed with the patient and/or family members who expressed understanding and agreement. All questions were answered. Thank you for involving us in the care of your patient. Please call with any questions. History of Present Illness History of present illness: Ms. Wyatt is a 72 year old female All Systems Review: The remainder of the systems were reviewed and are negative Physical Examination Vital Signs, Last 4 Hours Temp Pulse Resp BP Pulse Ox 09/10/18 15:55 99.1 F 62 16 147/64 100 Results 09/09/18 22:43 09/09/18 22:43 Lab Results 09/09/18 09/09/18 09/09/18 22:43 22:43 22:43 WBC 8.7 Hgb 9.4 L Hct 30.4 L Plt Count 219 INR APTT Sodium 138 Potassium 4.1 Chloride 106 Carbon Dioxide 26 BUN 22 Creatinine 0.87 Glucose 216 H Calcium 8.9 Troponin I 0.55 H* B-Natriuretic Peptide 449 H 09/09/18 09/10/18 22:59 07:29 WBC Hgb Hct Plt Count INR 1.0 APTT 25.5 L Sodium Potassium Chloride Carbon Dioxide BUN Creatinine Glucose Calcium Troponin I 0.47 H* B-Natriuretic Peptide
[2018-09-10] MEDS: Insulin LISPRO 300 UNITS/3 ML VIAL SQ SCH (17:51)
[2018-09-10] MEDS: *HR* Heparin 5,000 UNIT/ML VIAL SQ SCH (17:52)
[2018-09-10] MEDS: Aspirin Enteric Coated 81 MG Tablet PO SCH (17:52)
[2018-09-10] MEDS ORDERED: *HR* Enoxaparin 80 MG/0.8 ML SYRINGE SQ SCH (18:00)
[2018-09-10] MEDS ORDERED: Perflutren Lipid Microsphere 1.3 ML in 0.9 % Sodium Chloride 8.7 ML IVP ONE (18:51)
[2018-09-11] MEDS: *HR* Heparin 5,000 UNIT/ML VIAL SQ SCH (06:13)
[2018-09-11 06:57] LABS: Basophils # 0.1 K/mcL (0.0-0.2); Basophils % 0.7 %; Eosinophils # 0.3 K/mcL (0.0-0.6); Eosinophils % 3.6 %; Hematocrit 26.8 % (35.3-44.9); Hemoglobin 8.2 g/dL (11.5-15.4); Immature Granulocytes % 0.6 % (0-4); Lymphocytes # 1.8 K/mcL (0.6-4.6); Lymphocytes % 25.1 %; Mean Corpuscular HGB Conc 30.6 g/dL (31.6-35.5); Mean Corpuscular Hemoglobin 29.6 pg (28.0-33.3); Mean Corpuscular Volume 96.8 fL (83.0-100.0); Mean Platelet Volume 10.9 fL (9.4-12.4); Monocytes # 0.5 K/mcL (0.0-1.3); Monocytes % 6.4 %; Neutrophils # 4.5 K/mcL (1.6-8.9); Platelet Count 222 K/mcL (140-400); Red Blood Count 2.77 M/mcL (3.82-4.97); Red Cell Distribution Width 15.3 % (11.5-14.5); Segmented Neutrophils % 63.6 %
[2018-09-11 07:16] LABS: BUN/Creatinine Ratio 22 (6-26); Blood Urea Nitrogen 22 mg/dL (8-23); Calcium 8.6 mg/dL (8.6-10.3); Carbon Dioxide 26 mEq/L (23-29); Chloride 105 mEq/L (98-107); Glucose 254 mg/dL (70-105); Osmolality,Calculated 304 (280-300); Potassium 3.7 mEq/L (3.5-5.1); Sodium 141 mEq/L (136-145); eGFR For Non-African Americans 53 (> 60)
[2018-09-11] MEDS: Furosemide 20 MG/2 ML VIAL IVP SCH (08:22)
[2018-09-11] MEDS: Insulin LISPRO 300 UNITS/3 ML VIAL SQ SCH ×2 (08:23→11:46)
[2018-09-11] MEDS: Aspirin Enteric Coated 81 MG Tablet PO SCH (08:25)
--- NOTE | 2018-09-11 10:10 | Cardiology Progress Note ---
Date of Encounter: 09/11/18 Time of Encounter: 09:30 Assessment and Plan (1) CHF (congestive heart failure) Current Visit: Yes Status: Acute Per cardiology: -Known diastolic CHF. -Chest x-ray with CHF. -BNP 449. -Reports increased edema. -Last TTE [facility] 2014 with LVEF 55-60%, no wall motion abnormalities. -On IV lasix, currently net negative 260ml. -Agree with IV diuresis, would recommend continuing until euvolemic, as renal function with tolerate. -Strict i/os, fluid restriction, daily weights. Qualifiers: Heart failure type: diastolic Heart failure chronicity: acute on chronic Qualified Code(s): I50.33 - Acute on chronic diastolic (congestive) heart fa ilure (2) Elevated troponin Current Visit: Yes Status: Acute Per cardiology: -Troponins 0.55, 0.47. Recent NSTEMI Pham with troponin 9.55 09/06/18. Patient had refused LHC and was medically treated with heparin drip. -Denies chest pain. -No acute ischemic ECG changes noted. -LHC 2012 with 90% diffusely diseased LAD small vessel, 80% diagonal small small vessel, 40% proximal circ, 80% OM1 small vessel, 30% mid RCA. -Last TTE [facility] 2014 with LVEF 55-60%, no wall motion abnormalities. -Current with LVEF preserved, no wall motion abnormalities noted. -On asa, statin, bb, plavix. -Of note, patient is refusing to take her medications today. -Troponins down trending from recent NSTEMI that was medically managed. No c ardiac rehab consult warranted. -LVEF preserved, no wall motion abnormalities. Cardiology will sign off, reconsult if needed. -Of note, reported allergy to statin, however appears to be tolerating lipitor well. Discussion w patient/family: The assessment and plan as outlined above was discussed with the patient who expressed understanding and agreement. All questions were answered. Thank you for involving us in the care of your patient. Please call with any questions. Discussed and reviewed with Subjective Principal diagnosis: HTN Interval history: Patient refusing to cooperate today. Will not open eyes. Will not answer most questions. Did say she is not having chest pain. Objective Vital Signs, Last 4 Hours Temp Pulse Resp BP Pulse Ox 09/11/18 07:00 98.4 F 73 18 190/74 96 General: Other (Refusing to answer most questions. Will not open eyes ) HEENT: Atraumatic, Normocephaly, Mucus Membranes Moist Neck: No JVD, Normal carotid pulses Cardiac: Reg Rate and Rhythm, Normal S1 and S2, No Murmur Lungs: Other (Refused respiratory assessment) Neuro: Other (Uncooperative) Abdomen: Soft, Non-Tender Skin: No rashes noted on visualized skin Musculoskeletal: No Chest Wall Tenderness Extremities: No Clubbing, No Cyanosis, Normal Pulses, Other (Bilateral lower extremity edema noted. ) Results 09/11/18 06:14 09/11/18 06:14 Lab Results Impressions Chest CTA 09/10/18 09:11 IMPRESSION: No central pulmonary embolus Bilateral pleural effusions and septal thickening, compatible with pulmonary edema. Scattered small mediastinal nodes are noted, likely reactive Small mediastinal nodes, likely reactive. There is mucous plugging-bronchial wall thickening in the lower lobe airways Coronary artery disease Cholelithiasis. Small hiatal hernia is seen with nonspecific thickening at the GE junction D/ / Félix Bentley MD / Félix Bentley MD Interpreting Provider: Félix Bentley MD Active Medications Aspirin (Aspirin Ec) 81 mg PO DAILY [facility] Stop: 03/12/19 15:46 Last Admin: 09/11/18 08:25 Dose: Not Given Atorvastatin Calcium (Lipitor) 80 mg PO HS TAN Stop: 03/12/19 11:31 Last Admin: 09/10/18 21:42 Dose: Not Given Clopidogrel Bisulfate (Plavix) 75 mg PO DAILY TAN Stop: 03/12/19 15:46 Last Admin: 09/11/18 08:25 Dose: Not Given Dextrose/Water (Dextrose 50% (Syg)) 25 ml IVP AD PRN PRN Reason: Hypoglycemia Stop: 03/12/19 09:15 Docusate Sodium (Colace) 100 mg PO BID TAN Stop: 03/12/19 21:01 Last Admin: 09/11/18 08:25 Dose: Not Given Furosemide (Lasix) 20 mg IVP BIDDIURETIC ATN Stop: 03/12/19 11:31 Last Admin: 09/11/18 08:22 Dose: 20 mg Glucagon (Glucagen) 1 mg IM ONCE PRN PRN Reason: Hypoglycemia Stop: 03/12/19 09:20 Glucose (Gluctose) 15 gm PO ONCE PRN PRN Reason: Hypoglycemia Stop: 03/12/19 09:20 Glucose (Gluctose) 30 gm PO ONCE PRN PRN Reason: Hypoglycemia Stop: 03/12/19 09:20 Heparin Sodium (Porcine) (Heparin) 5,000 unit SQ Q12HCO [facility] Stop: 03/12/19 18:01 Last Admin: 09/11/18 06:13 Dose: Not Given Dextrose (Dextrose 5%) 1,000 mls @ 100 mls/hr IVC .Q10H PRN PRN Reason: HYPOGLYCEMIA Stop: 03/12/19 09:20 Insulin Human Lispro (Humalog) 0 units SQ TIDAC [facility]; Protocol Stop: 03/12/19 16:31 Last Admin: 09/11/18 08:23 Dose: 4 units Insulin Human Lispro (Humalog) 0 units SQ HS [facility]; Protocol Stop: 03/12/19 21:01 Last Admin: 09/10/18 21:00 Dose: Not Given Metoprolol Tartrate (Lopressor) 25 mg PO BID [facility] Stop: 03/12/19 11:31 Last Admin: 09/11/18 08:25 Dose: Not Given Naloxone HCl (Narcan) 0.4 mg IVP Q2M PRN PRN Reason: SEE COMMENTS Stop: 03/12/19 11:12 Ondansetron HCl (Zofran) 4 mg IVP Q8HR PRN PRN Reason: Nausea And Vomiting Stop: 03/12/19 11:12 Laboratory Tests 09/09/18 09/10/18 09/11/18 22:43 07:29 06:14 Hgb 8.2 L Creatinine Troponin I 0.55 H* 0.47 H* 09/11/18 06:14 Hgb Creatinine 1.02 Troponin I - Imaging and Cardiology Chest Xray: report reviewed Echo: pending - EKG Interpretation EKG results cardiology: other (Telemetry reviewed with average HR previous 12 hours noted to be 64, SR. PVCs and PACs noted.) Consult Discharge Plan - Plan Referrals: NONE,PCP [Primary Care Provider] -
[2018-09-11 11:48] VITALS: BP 168/74
--- NOTE | 2018-09-11 14:31 | Physician Discharge Referral ---
ExtendedCare Referral Info Institutional Level of Care: Skilled - Transfer Medications Home Medications: Clopidogrel [Plavix] 75 mg PO DAILY 08/14/16 [History] Cyanocobalamin (B-12) [Vitamin B12] 1,000 mcg IM QMONTH 08/14/16 [History] Hydrocortisone [Cortef] 5 mg PO DAILY 08/14/16 [History] Levothyroxine [Synthroid] 88 mcg PO DAILY 08/14/16 [History] Metoprolol XL (24 HR) Succ [Toprol Xl] 50 mg PO DAILY 08/14/16 [History] Latanoprost [Xalatan] 1 drop BOTH EYES HS 11/13/16 [History] Losartan Potassium [Cozaar] 50 mg PO DAILY 03/11/17 [History] Bumetanide [Bumex] 1 mg PO BID 07/23/17 [History] Ferrous Sulfate [Iron] 325 mg PO BID 07/23/17 [History] Colchicine [Mitigare] 0.6 mg PO BID 09/24/17 [History] Albuterol Neb [Proventil Neb] 2.5 mg IH Q4H 09/10/18 [History] Calcium Carbonate/Vitamin D3 [Calcium 600-Vit D3 200 Tablet] 1 tab PO BID 09/10/18 [History] Cholecalciferol (D-3) [Vitamin D] 5,000 unit PO DAILY 09/10/18 [History] Cholecalciferol (Vitamin D3) [Vitamin D] 2,000 unit PO DAILY 09/10/18 [History] Fluticasone Propionate Nasal [Flonase] 1 spray NS DAILY 09/10/18 [History] Furosemide [Lasix] 40 mg PO DAILY 09/10/18 [History] Gabapentin [Neurontin] 300 mg PO BID 09/10/18 [History] Insulin ASPART [Novolog] 0 unit SQ HS PRN 09/10/18 [History] Insulin ASPART [Novolog] 0 unit SQ TIDAC PRN 09/10/18 [History] Insulin DETEMIR [Levemir Flextouch] 27 unit SQ DAILY 09/10/18 [History] L. Acidophilus/Pectin, [place] [Acidophilus Capsule] 1 cap PO BID 09/10/18 [History] Loratadine [Claritin] 10 mg PO DAILY 09/10/18 [History] Multivit-Min/Iron/Folic/Lutein [Centrum Silver Women Tablet] 1 tab PO DAILY 09/10/18 [History] [place]-3 Acid Ethyl Esters [Triklo] 1 gm PO BID 09/10/18 [History] Uloric 20 mg PO DAILY 09/10/18 [History] Allergies/Adverse Reactions: Allergy/AdvReac Type Severity Reaction Status Date / Time adhesive tape Allergy Rash Verified 01/21/18 14:23 insulin isophane (NPH) Allergy Rash Verified 01/21/18 14:23 [From Humulin 70/30] Insulin Regular Allergy Rash Verified 01/21/18 14:23 [From Humulin 70/30] isosorbide [From Imdur] Allergy Rash Verified 01/21/18 14:23 lisinopril Allergy Anaphylaxis Verified 01/21/18 14:23 Xjatlbj-Aix-Xfl Reductase Allergy Muscle Pain Verified 01/21/18 14:23 Inhibitor [Statins] - Respiratory Orders Smoking Cessation: Smoking cessation has been advised. For more information, call the [place] Tobacco Quit Line at 7-937-HVFR-NOW. CERTIFICATION: I certify that the transfer of the above named patient to an Extended Care Facility is necessary for the continuing treatment of the diagnosis listed. The above information is true and accurate reflection of patient's current condition. Confidential - Redisclosure prohibited without a patient's written consent.
--- NOTE | 2018-09-11 14:31 | Discharge Summary ---
- NOTES TO OUTPATIENT PROVIDER Notes to Outpatient Provider: none Orders not resulted at time of discharge: Pending orders 09/10/18 11:11 Urinalysis reflex Microscopic [URIN] Routine Date of Encounter: 09/11/18 Time of Encounter: 12:00 - Discharge Diagnosis (1) CHF exacerbation Priority: Primary Status: Acute Qualifiers: Heart failure type: diastolic Qualified Code(s): I50.33 - Acute on chronic diastolic (congestive) heart failure (2) Elevated troponin Priority: Primary Status: Acute Hospital course: Patient is a 72-year-old female with past medical history significant for coronary artery disease, CVA, diabetes, glaucoma, hyperlipidemia, hypertension, myocardial infarction, osteoporosis, peripheral artery disease, renal disease, thyroid disease, syncope and TIA who presented due to chest pain. In the ER patient was found to have elevated troponins and was admitted for non- STEMI. During patients hospital stay cardiology was consulted with recommendations for left heart catheterization with the patient refused. Patient was treated for acute on chronic diastolic heart failure with IV Lasix. Cardiology with recommendations for medical management. [facility] - Time Spent with Patient Total time spent providing and/or coordinating discharge services: Time spent: Less than 30 minutes - Discharge Medications Prescriptions: Continue Levothyroxine [Synthroid] 88 mcg PO DAILY Bumetanide [Bumex] 1 mg PO BID Colchicine [Mitigare] 0.6 mg PO BID Gabapentin [Neurontin] 300 mg PO BID 3 Days #6 capsule No Action Clopidogrel [Plavix] 75 mg PO DAILY Metoprolol XL (24 HR) Succ [Toprol Xl] 50 mg PO DAILY Hydrocortisone [Cortef] 5 mg PO DAILY Cyanocobalamin (B-12) [Vitamin B12] 1,000 mcg IM QMONTH Latanoprost [Xalatan] 1 drop BOTH EYES HS Losartan Potassium [Cozaar] 50 mg PO DAILY Ferrous Sulfate [Iron] 325 mg PO BID Cholecalciferol (D-3) [Vitamin D] 5,000 unit PO DAILY Fluticasone Propionate Nasal [Flonase] 1 spray NS DAILY Furosemide [Lasix] 40 mg PO DAILY Insulin DETEMIR [Levemir Flextouch] 27 unit SQ DAILY Loratadine [Claritin] 10 mg PO DAILY Multivit-Min/Iron/Folic/Lutein [Centrum Silver Women Tablet] 1 tab PO DAILY Uloric 20 mg PO DAILY Albuterol Neb [Proventil Neb] 2.5 mg IH Q4H Cholecalciferol (Vitamin D3) [Vitamin D] 2,000 unit PO DAILY Insulin ASPART [Novolog] 0 unit SQ TIDAC PRN PRN Reason: PER SLIDING SCALE Insulin ASPART [Novolog] 0 unit SQ HS PRN PRN Reason: PER SLIDING SCALE L. Acidophilus/Pectin, [place] [Acidophilus Capsule] 1 cap PO BID [place]-3 Acid Ethyl Esters [Triklo] 1 gm PO BID Calcium Carbonate/Vitamin D3 [Calcium 600-Vit D3 200 Tablet] 1 tab PO BID Home Medications: Clopidogrel [Plavix] 75 mg PO DAILY 08/14/16 [History] Cyanocobalamin (B-12) [Vitamin B12] 1,000 mcg IM QMONTH 08/14/16 [History] Hydrocortisone [Cortef] 5 mg PO DAILY 08/14/16 [History] Levothyroxine [Synthroid] 88 mcg PO DAILY 08/14/16 [History] Metoprolol XL (24 HR) Succ [Toprol Xl] 50 mg PO DAILY 08/14/16 [History] Latanoprost [Xalatan] 1 drop BOTH EYES HS 11/13/16 [History] Losartan Potassium [Cozaar] 50 mg PO DAILY 03/11/17 [History] Bumetanide [Bumex] 1 mg PO BID 07/23/17 [History] Ferrous Sulfate [Iron] 325 mg PO BID 07/23/17 [History] Colchicine [Mitigare] 0.6 mg PO BID 09/24/17 [History] Albuterol Neb [Proventil Neb] 2.5 mg IH Q4H 09/10/18 [History] Calcium Carbonate/Vitamin D3 [Calcium 600-Vit D3 200 Tablet] 1 tab PO BID 09/10/18 [History] Cholecalciferol (D-3) [Vitamin D] 5,000 unit PO DAILY 09/10/18 [History] Cholecalciferol (Vitamin D3) [Vitamin D] 2,000 unit PO DAILY 09/10/18 [History] Fluticasone Propionate Nasal [Flonase] 1 spray NS DAILY 09/10/18 [History] Furosemide [Lasix] 40 mg PO DAILY 09/10/18 [History] Insulin ASPART [Novolog] 0 unit SQ HS PRN 09/10/18 [History] Insulin ASPART [Novolog] 0 unit SQ TIDAC PRN 09/10/18 [History] Insulin DETEMIR [Levemir Flextouch] 27 unit SQ DAILY 09/10/18 [History] L. Acidophilus/Pectin, [place] [Acidophilus Capsule] 1 cap PO BID 09/10/18 [History] Loratadine [Claritin] 10 mg PO DAILY 09/10/18 [History] Multivit-Min/Iron/Folic/Lutein [Centrum Silver Women Tablet] 1 tab PO DAILY 09/10/18 [History] [place]-3 Acid Ethyl Esters [Triklo] 1 gm PO BID 09/10/18 [History] Uloric 20 mg PO DAILY 09/10/18 [History] Gabapentin [Neurontin] 300 mg PO BID 3 Days #6 capsule 09/11/18 [Rx] Allergies/Adverse Reactions: Allergy/AdvReac Type Severity Reaction Status Date / Time adhesive tape Allergy Rash Verified 01/21/18 14:23 insulin isophane (NPH) Allergy Rash Verified 01/21/18 14:23 [From Humulin 70/30] Insulin Regular Allergy Rash Verified 01/21/18 14:23 [From Humulin 70/30] isosorbide [From Imdur] Allergy Rash Verified 01/21/18 14:23 lisinopril Allergy Anaphylaxis Verified 01/21/18 14:23 Jvcqdxk-Ggy-Xkc Reductase Allergy Muscle Pain Verified 01/21/18 14:23 Inhibitor [Statins] Date of admission: 09/10/18 11:12 Primary care physician: PCP NONE Consults: 09/10/18 03:35 Consult to Pastoral Services [CONS] Routine Comment: Consult to Batt Machine Operator [CONS] Routine Reason for SW Consult: Placement back to ECF. 09/10/18 04:53 Consult to Wound Care [CONS] Routine Reason for Consult: Pressure ulcers to heals. Call Completed: No 09/10/18 11:19 Consult to Cardiology [CONS] Routine Comment: Consulting Provider: Cardiology Dolores Reason for Consult: [email or web address] Call Completed: No 09/10/18 14:09 Consult to Nurse Navigator [CONS] Routine Comment: CHF - Constitutional Vitals: Temp Pulse Resp BP Pulse Ox 98.0 F 68 16 168/74 99 09/11/18 11:46 09/11/18 11:46 09/11/18 11:46 09/11/18 11:46 09/11/18 11:46 Exam: Gen.: Nonacute distress, alert and oriented 3 Skin: Normal color - Patient Status Disposition: Transfer SNF Condition: Undetermined - Discharge Instructions Follow Up With: NONE,PCP [Primary Care Provider] -
== END 2018-09-11 15:54 | DRG 280 ==
LOC: EMEROOARM 21:57 → 2ANU 21:57 → SUATTDRO 09-10 11:12
PROVIDERS: ADMIT Internal Medicine; ATTEND Hospitalist

== ENCOUNTER 2018-11-04 09:39 | Inpatient (IN) ==
[2018-11-04] MEDS ORDERED: Naloxone 0.4 MG/ML INJ IVP PRN (14:11)
[2018-11-04 14:51] LABS: Basophils % 0.5 %; Eosinophils # 0.4 K/mcL (0.0-0.6); Eosinophils % 6.6 %; Hematocrit 29.5 % (35.3-44.9); Hemoglobin 9.8 g/dL (11.5-15.4); Immature Granulocytes % 1.7 % (0-4); Lymphocytes # 2.3 K/mcL (0.6-4.6); Lymphocytes % 35.1 %; Mean Corpuscular HGB Conc 33.2 g/dL (31.6-35.5); Mean Corpuscular Hemoglobin 30.6 pg (28.0-33.3); Mean Corpuscular Volume 92.2 fL (83.0-100.0); Mean Platelet Volume 10.7 fL (9.4-12.4); Monocytes # 0.5 K/mcL (0.0-1.3); Monocytes % 7.1 %; Neutrophils # 3.3 K/mcL (1.6-8.9); Platelet Count 168 K/mcL (140-400); Red Cell Distribution Width 14.9 % (11.5-14.5)
--- NOTE | 2018-11-04 15:21 | Internal Med History&Physical ---
<Zaire Gómez R - Last Filed: 11/04/18 17:37> Date of Encounter: 11/04/18 Time of Encounter: 15:08 Internal Medicine - H&P: HPI Chief complaint: Elevated lactic acid, troponin, and glucose Admitted From: Emergency Dept ([facility] ED) History of present illness: Ms. Wyatt is a 72 year old female with PMH of CAD, CVA, type 1 DM, HTN, CKD 3, osteoporosis, lymphedema, and charcot foot, presented to the ED from [facility] for concerns for AMS and hyperglycemia. The patient reports they woke her from sleep this morning because she overslept. She reports the [facility] staff were asking her how she was doing. She states that they will occur in the middle of a dream, and that she began reporting what was going on in her dream. This is related to Gretchen mo, and the staff was concerned that she had become altered. Blood glucose was reportedly over 500. She is was then taken to the emergency department for further evaluation. At the emergency department she was found to have elevated troponin, 0.35, lactic acid 3.3, BG 552, and A/CKD with SCr 2.55 (baseline 1-1.25). EKG showed NSR with non-diagnostic ST depressions in V2-6, an d this is comparable to prior EKGs. The patient reports that she feels some generalized weakness and fatigue. She denies feeling confused and is able to describe the events of the morning well. She reports 5 days of diarrhea, but this resolved 3 days ago. She reports decreased appetite over the past few days as well. She was treated with levaquin for recent UTI, but UA in the ED was not concerning for infection today. She reports a prior "band-like pressure" around her upper abdomen several days ago, but reports this has resolved as well. She reports chronic LE edema, but this has not been worsening. She denies fevers, chills, chest pain or pressure, dyspnea, cough, nausea, vomiting, diarrhea, dysuria, or worsening LE edema. Past Med Surg Social Fam HX - Past Medical History Medical history: arthritis, coronary artery disease, CVA, diabetes, glaucoma, hyperlipidemia, hypertension, myocardial infarction, osteoporosis, peripheral artery disease, renal disease, thyroid disease, syncope, TIA Additional medical history: Lymph edema, Charcot Joint Foot, Rt Big Great Toe Amputated, chronic cellulitis, DM type 1, Heart Blockages 95%,95%, and 90%, Adrenal Insufficency, DM Dupuytrenes Contractor, Colitis. Psychiatric history: no psych history - Past Surgical History Surgical History: angioplasty/stent, breast surgery, cataract, vascular surgery - Social History Smoking Status: Never smoker Smokeless Tobacco Status: No Alcohol use: none Drug use: none - Family History Mother Living Status: Hx Family Cardiac Disorders: No Hx Family Respiratory Disorders: No Hx Family Cancer: No Hx Family GI Disorders: No Hx Family Endocrine Disorder: No Hx Family Neuromuscular Disorders: No Hx Family Neurologic Disorders: No Hx Family HEENT Disorders: No Hx Family Autoimmune Disorders: No Father Living Status: Hx Family Cardiac Disorders: No Hx Family Respiratory Disorders: No Hx Family Cancer: Yes (pancreatic cancer) Hx Family GI Disorders: No Hx Family Endocrine Disorder: No Hx Family Neuromuscular Disorders: No Hx Family Neurologic Disorders: No Hx Family HEENT Disorders: No Hx Family Autoimmune Disorders: No Internal Medicine - H&P: Meds Clopidogrel [Plavix] 75 mg PO DAILY 08/14/16 [History] Hydrocortisone [Cortef] 5 mg PO QAM 08/14/16 [History] Levothyroxine [Synthroid] 88 mcg PO QAM 08/14/16 [History] Metoprolol XL (24 HR) Succ [Toprol Xl] 50 mg PO DAILY 08/14/16 [History] Latanoprost [Xalatan] 1 drop LEFT EYE HS 11/13/16 [History] Losartan Potassium [Cozaar] 50 mg PO QAM 03/11/17 [History] Bumetanide [Bumex] 1 mg PO DAILY 07/23/17 [History] Ferrous Sulfate [Iron] 325 mg PO BID 07/23/17 [History] Albuterol Neb [Proventil Neb] 2.5 mg IH Q4H 09/10/18 [History] Calcium Carbonate/Vitamin D3 [Calcium 600-Vit D3 200 Tablet] 1 tab PO BID 09/10/18 [History] Fluticasone Propionate Nasal [Flonase] 1 spray NS DAILY 09/10/18 [History] L. Acidophilus/Pectin, [place] [Acidophilus Capsule] 1 cap PO BID 09/10/18 [Histo ry] Loratadine [Claritin] 10 mg PO QAM 09/10/18 [History] Multivit-Min/Iron/Folic/Lutein [Centrum Silver Women Tablet] 1 tab PO QPM 09/10/18 [History] Gabapentin [Neurontin] 300 mg PO BID 10/01/18 [History] Nitroglycerin [Nitrostat] 0.4 mg SL Q5M PRN 10/01/18 [History] Nystatin POWDER [Nystop] 1 appl TP BID 10/01/18 [History] Allopurinol [Zyloprim 100 MG] 100 mg PO DAILY 11/04/18 [History] Cholecalciferol (Vitamin D3) [Dialyvite Vitamin D] 5,000 units PO DAILY 11/04/18 [History] Insulin ASPART [Novolog Flexpen] 0 units SQ TID 11/04/18 [History] Insulin DETEMIR [Levemir Flextouch] 5 units SQ HS 11/04/18 [History] Insulin DETEMIR [Levemir Flextouch] 42 units SQ QAM 11/04/18 [History] [place]-3/Dha/Epa/Fish Oil [Fish Oil 1,000 mg Softgel] 1,000 mg PO BID 11/04/18 [History] Allergy/AdvReac Type Severity Reaction Status Date / Time adhesive tape Allergy Rash Verified 01/21/18 14:23 insulin isophane (NPH) Allergy Rash Verified 01/21/18 14:23 [From Humulin 70/30] Insulin Regular Allergy Rash Verified 01/21/18 14:23 [From Humulin 70/30] isosorbide [From Imdur] Allergy Rash Verified 01/21/18 14:23 lisinopril Allergy Anaphylaxis Verified 01/21/18 14:23 Knzfyrd-Jgl-Kzk Reductase Allergy Muscle Pain Verified 01/21/18 14:23 Inhibitor [Statins] All Systems PM: A 10-system review of systems was performed and is negative for pertinent findings except as documented above in the HPI. - Constitutional Vitals: Temp Pulse Resp BP 98.6 F 77 18 123/57 11/04/18 11:39 11/04/18 11:39 11/04/18 11:39 11/04/18 11:39 Exam: GEN: No acute distress, A&O3 HEAD: Atraumatic, normocephalic EYES: Pupils symmetric, sclera white, conjunctiva pink HEART: RRR, normal S1 and S2, no murmurs LUNGS: Clear to auscultation bilaterally, no wheezes, rhonchi, or crackles ABD: Soft, nontender, nondistended, bowel sounds present EXT: Chronic depedent edema bilaterally with trace pitting edema bilaterally, pulses 2/4 NEURO: No focal deficits, cooperative with exam Internal Med - H&P Results - Labs CBC & Chem 7: 11/04/18 14:35 Labs: Short CBC 11/04/18 Range/Units 14:35 WBC 6.7 (4.3-11.1) K/mcL Hgb 9.8 L (11.5-15.4) g/dL Hct 29.5 L (35.3-44.9) % Plt Count 168 (140-400) K/mcL Neutrophils # 3.3 (1.6-8.9) K/mcL - Assessment and Plan (1) NSTEMI (non-ST elevated myocardial infarction) Current Visit: Yes Status: Acute Assessment and plan: Initial troponin 0.35 at [facility] ED, repeat is down-trending now to 0.23 Received dose of lovenox and 1 L NS at ED this morning Patient is currently asymptomatic but has had prior upper abdominal pressure that has since resolved EKG showed NSR with non-diagnostic ST depressions in V2-6, consistent with prior EKGs Repeat EKG showed NSR with non-specific ST changes - mild improvement in ST changes from prior In the setting of recent diarrhea, poor PO intake, and A/CKD Will hold off on cardiology consult at this time with improving troponin - patient had previously refused LHC in August 2018 - if increasing again or patient interested in possible LHC, will consult cardiology at that time Plan: - Will start on Heparin drip for 48 hours (heparin drip instead of lovenox due to renal function) - Recheck Troponin tomorrow morning - Oral rehydration (2) Elevated lactic acid level Current Visit: Yes Status: Acute Assessment and plan: Elevated at 3.3 at [facility] ED, repeat on arrival is 0.9 Received 1 L NS at ED UA at ED without leuk esterase or nitrites - recently treated with levaquin for UTI No current signs/symptoms of infection, afebrile, normal HR and RR Likely secondary to dehydration Will attempt oral rehydation at this time, with hx of HFpEF and chronic lymphedema (3) Type 1 diabetes mellitus Current Visit: Yes Status: Chronic Assessment and plan: BG at [facility] ED was 552 - repeat down to 248 here Last A1c was in 9.7% in September 2018 Will start basal/bolus regimen once home meds verified - Now start low-dose SSI with meals Qualifiers: Diabetes mellitus complication status: with hyperglycemia Qualified Code(s): E10.65 - Type 1 diabetes mellitus with hyperglycemia (4) Acute kidney injury superimposed on chronic kidney disease Current Visit: Yes Status: Acute Assessment and plan: JESSICA on CKD stage 3 - baseline SCr 1.0-1.2 and GFR 40's Now SCr 2.55, GFR 20, BUN 59 - likely secondary to dehydration Patient reports no difficulty with urination Will monitor I/O's - if poor UOP will consider renal ultrasound and urine studies Will avoid nephrotoxins as able - hold SAMUEL and gabapentin at this time (5) Dehydration Current Visit: Yes Status: Acute Assessment and plan: Reported poor PO intake, recent diarrhea for several days, and worsening renal function No abdominal symptoms now and diarrhea has resolved Encourage PO fluids - if not able will consider small boluses of IV fluids to avoid fluid overload (6) Heart failure with preserved ejection fraction Current Visit: Yes Status: Acute Assessment and plan: Not in current exacerbation Last echo 09/10/18: EF 60-65% with moderate LVDD Qualifiers: Heart failure chronicity: chronic Qualified Code(s): I50.32 - Chronic diastolic (congestive) heart failure (7) CAD (coronary artery disease) Current Visit: No Status: Chronic Assessment and plan: Known CAD - Report of prior stent placed Of note, she did refuse LHC in August 2018 after NSTEMI and was treated medically with heparin Qualifiers: Coronary Disease-Associated Artery/Lesion type: [place] artery [place] vs. transplanted heart: [place] heart Associated angina: without angina Qualified Code(s): I25.10 - Atherosclerotic heart disease of [place] coronary artery without angina pectoris (8) Hypertension Current Visit: Yes Status: Chronic Assessment and plan: Stable at this time Resume home metoprolol Hold SAMUEL due to renal dysfunction Qualifiers: Hypertension type: essential hypertension Qualified Code(s): I10 - Essential (primary) hypertension (9) DVT prophylaxis Current Visit: Yes Status: Acute Assessment and plan: Currently on heparin drip - Time Spent With Patient Total time spent is greater than 50% in coordination of care (as documented) at patient's floor/unit and/or counseling patient: <Ken Meneses - Last Filed: 11/04/18 18:04> Date of Encounter: 11/04/18 Internal Med - H&P Results - Labs CBC & Chem 7: 11/04/18 14:35 - Summary of Assessment and Plan Summary of Assessment and Plan: Patient seen and examined independently. Objective data has been reviewed including labs, ECGs, and OSH records. I agree with the plan of care as documented above by the resident, with the following comments: Pt sent to ED for suspected confusion and was found in OSH ED to have h yperglycemia 550s, lactic acidosis 3.3, ischemia trop 0.35. Pt denies acute symptoms but does endorse nagging L chest pressure. Says she had diarrhea last week. Also mentions that since going to SNF she has been getting scheduled 4-6x daily albuterol nebs. At OSH ED, given NS 1L bolus. Here, repeat trop down to 0.23 and repeat lactate normal at 0.9. ECG unchanged from baseline. Suspect demand ischemia but will manage as NSTEMI given symptoms of CP, start hep gtt. Continue hydration w PO. Basal/bolus insulin to manage hyperglycemia.
[2018-11-04] MEDS ORDERED: D5% in Water 1,000 ML IVC PRN (15:30)
[2018-11-04] MEDS ORDERED: *HR* Dextrose 50 % in Water (Syg) 50 ML SYRINGE IVP PRN (15:30)
[2018-11-04] MEDS ORDERED: Dextrose Gel 15 GM/37.5 ML TUBE PO PRN ×2 (15:30)
[2018-11-04] MEDS ORDERED: Nitroglycerin 0.4 MG TAB.SUBL SL PRN (16:37)
[2018-11-04] MEDS ORDERED: Albuterol 2.5 MG/3 ML NEBULIZER IH SCH (16:45)
[2018-11-04] MEDS ORDERED: *HR* Heparin 5,000 UNIT/ML VIAL IVP PRN ×2 (17:35)
[2018-11-04] MEDS ORDERED: *HR* Heparin 5,000 UNIT/ML VIAL IVP ONE (17:35)
[2018-11-04] MEDS: Insulin LISPRO 300 UNITS/3 ML VIAL SQ SCH (18:28)
[2018-11-04] MEDS: Heparin 25,000 UNIT/250 ML D5W 25,000 UNIT/250 ML IV.SOLN IVC SCH (18:31)
[2018-11-04] MEDS: Metoprolol XL (24 HR) Succ 50 MG TAB.ER.24H PO SCH (18:33)
[2018-11-04 18:35] LABS: Hematocrit 29.8 % (35.3-44.9); Hemoglobin 9.6 g/dL (11.5-15.4); Mean Corpuscular HGB Conc 32.2 g/dL (31.6-35.5); Mean Corpuscular Hemoglobin 29.9 pg (28.0-33.3); Mean Corpuscular Volume 92.8 fL (83.0-100.0); Mean Platelet Volume 10.7 fL (9.4-12.4); Platelet Count 179 K/mcL (140-400); Red Blood Count 3.21 M/mcL (3.82-4.97)
[2018-11-04 18:42] LABS: Heparin anti-factor XA UFH 0.63 IU/mL (0.30-0.70); INR 1.1; Prothrombin Time 12.6 Seconds (9.4-12.1)
[2018-11-04] MEDS: Multivit/Ca/Min/Fe/FA 1 TAB TABLET PO SCH (18:58)
[2018-11-04] MEDS: Latanoprost 2.5 ML BOTTLE LEFT EYE SCH (22:22)
[2018-11-04] MEDS: Lactobacillus 1 EACH CAP.SPRINK PO SCH (22:23)
[2018-11-04] MEDS: (Omega-3/Dha/Epa/Fish Oil [Fish Oil 1,000 Mg Softgel]) PO SCH (22:24)
[2018-11-05] MEDS: Insulin LISPRO 300 UNITS/3 ML VIAL SQ SCH ×4 (00:20→17:41)
[2018-11-05 01:44] LABS: Basophils % 0.4 %; Eosinophils # 0.6 K/mcL (0.0-0.6); Hemoglobin 9.7 g/dL (11.5-15.4); Immature Granulocytes % 1.5 % (0-4); Lymphocytes # 2.5 K/mcL (0.6-4.6); Lymphocytes % 31.4 %; Mean Corpuscular HGB Conc 32.3 g/dL (31.6-35.5); Mean Corpuscular Hemoglobin 30.1 pg (28.0-33.3); Mean Corpuscular Volume 93.2 fL (83.0-100.0); Mean Platelet Volume 11.4 fL (9.4-12.4); Monocytes # 0.5 K/mcL (0.0-1.3); Monocytes % 5.9 %; Neutrophils # 4.1 K/mcL (1.6-8.9); Platelet Count 178 K/mcL (140-400); Red Blood Count 3.22 M/mcL (3.82-4.97); Segmented Neutrophils % 52.8 %
[2018-11-05 01:59] LABS: Calcium 8.8 mg/dL (8.6-10.3)
[2018-11-05] MEDS ORDERED: *HR* Heparin 5,000 UNIT/ML VIAL SQ SCH (09:00)
[2018-11-05] MEDS: Hydrocortisone 10 MG TABLET PO SCH (09:18)
[2018-11-05] MEDS: Loratadine 10 MG TABLET PO SCH (09:18)
[2018-11-05] MEDS: Cholecalciferol (D-3) 1,000 UNIT TABLET PO SCH (09:18)
[2018-11-05] MEDS: Lactobacillus 1 EACH CAP.SPRINK PO SCH ×2 (09:18→21:47)
[2018-11-05] MEDS: Metoprolol XL (24 HR) Succ 50 MG TAB.ER.24H PO SCH (09:18)
[2018-11-05] MEDS: (Omega-3/Dha/Epa/Fish Oil [Fish Oil 1,000 Mg Softgel]) PO SCH (09:19)
[2018-11-05] MEDS: Fluticasone Propionate Nasal 50 MCG/SPRAY BOTTLE NS SCH (09:20)
[2018-11-05] MEDS ORDERED: Perflutren Lipid Microsphere 1.3 ML in 0.9 % Sodium Chloride 8.7 ML IVP ONE (10:57)
--- NOTE | 2018-11-05 13:04 | Electrocardiograph Report ---
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
[2018-11-05] MEDS: 0.9 % Sodium Chloride 1,000 ML IVC SCH (17:37)
[2018-11-05] MEDS: Multivit/Ca/Min/Fe/FA 1 TAB TABLET PO SCH (17:38)
--- NOTE | 2018-11-05 17:38 | Internal Med Progress Note ---
<Everardo Soni - Last Filed: 11/05/18 17:35> Hospitalist Progress Note - Encounter Date of Encounter: 11/05/18 Time of Encounter: 09:20 - Subjective Interval History: The patient is resting comfortably in bed at time of examination. She has no acute complaints overnight. The patient did not have any chest pains and she is not feeling short of breath. She does have very poor urine output according to the patient's nurse, however there is no significant recording of this. - Exam Vitals: Temp Pulse Resp BP Pulse Ox 97.7 F 64 18 119/59 98 11/05/18 12:00 11/05/18 12:00 11/05/18 12:00 11/05/18 12:00 11/05/18 12:00 Exam: GEN: No acute distress, A&O3 HEAD: Atraumatic, normocephalic EYES: Pupils symmetric, sclera white, conjunctiva pink HEART: RRR, normal S1 and S2, no murmurs LUNGS: Clear to auscultation bilaterally, no wheezes, rhonchi, or crackles ABD: Soft, nontender, nondistended, bowel sounds present EXT: Chronic depedent edema bilaterally with trace pitting edema bilaterally, pulses 2/4 NEURO: No focal deficits, cooperative with exam - Assessment and Plan (1) NSTEMI (non-ST elevated myocardial infarction) Current Visit: Yes Status: Acute Assessment and Plan: Initial troponin 0.35 at [facility] ED, repeat is down-trending now to 0.23 Patient is currently asymptomatic but has had prior upper abdominal pressure that has since resolved EKG showed NSR with non-diagnostic ST depressions in V2-6, consistent with prior EKGs Repeat EKG showed NSR with non-specific ST changes - mild improvement in ST changes from prior In the setting of recent diarrhea, poor PO intake, and A/CKD however this has been somewhat chronic Patient was placed on heparin drip and cardiology consult was held due to prior refusal of cardiology interventions in the past I do have concerns about the patient's worsening renal function however given that the patient did have this elevated troponin and NSTEMI I will check a limited echo to evaluate EF Continue heparin for now Patient says she would be willing to consider a left heart catheterization if it is indicated (2) Acute kidney injury superimposed on chronic kidney disease Current Visit: Yes Status: Acute Assessment and Plan: Suspected oliguric JESSICA on CKD stage 3 - baseline SCr 1.0-1.2 and GFR 40's Now SCr 2.45, GFR 20, BUN 59 - possibly secondary to dehydration however it is unclear Will avoid nephrotoxins as able - hold SAMUEL and gabapentin at this time We will go ahead and get urine studies as well as retroperitoneal ultrasound as the patient is not having strong urine output (3) CAD (coronary artery disease) Current Visit: No Status: Chronic Assessment and Plan: Known CAD - Report of prior stent placed Of note, she did refuse LHC in August 2018 after NSTEMI and was treated medically with heparin Continue plavix, BB, start ASA which patient wasn't on. Hold SAMUEL. Patient has allergy to statin (4) Diabetes mellitus Current Visit: Yes Status: Chronic Assessment and Plan: Diabetes in poor control, glucose greater than 250-300 We will start the patient on long acting insulin, sliding scale insulin and prandial Goal glucose 140-180 (5) Diarrhea Current Visit: No Status: Chronic Assessment and Plan: Diarrhea, presumed functional. Patient has had infectious workup previously and appears to be negative. She is having formed bowel movements on this admission. (6) Heart failure with preserved ejection fraction Current Visit: Yes Status: Acute Assessment and Plan: Not in current exacerbation Last echo 09/10/18: EF 60-65% with moderate LVDD - Time Spent with Patient Total time spent is greater than 50% in coordination of care (as documented) at patient's floor/unit and/or counseling patient: Internal Medicine: Result - Labs CBC & Chem 7: 11/05/18 00:51 11/05/18 00:51 Labs: Short CBC 11/04/18 11/05/18 Range/Units 18:18 00:51 WBC 7.2 7.8 (4.3-11.1) K/mcL Hgb 9.6 L 9.7 L (11.5-15.4) g/dL Hct 29.8 L 30.0 L (35.3-44.9) % Plt Count 179 178 (140-400) K/mcL Neutrophils # 4.1 (1.6-8.9) K/mcL BMP 11/05/18 00:51 Sodium 137 Potassium 4.0 Chloride 100 Carbon Dioxide 26 BUN 57 H Creatinine 2.45 H Glucose 344 H Calcium 8.8 Cardiac Enzymes 11/05/18 Range/Units 00:51 Troponin I 0.23 H* (< 0.04) ng/mL - ABG Interpretation ABG results: PT/INR, D-dimer PT 12.6 Seconds (9.4-12.1) H 11/04/18 18:18 Consult Discharge Plan - Plan Referrals: Cindy Yeager, DO [Primary Care Provider] - <René Caraballo - Last Filed: 11/05/18 18:10> Hospitalist Progress Note - Encounter Date of Encounter: 11/05/18 - Exam Vitals: Temp Pulse Resp BP Pulse Ox 98.2 F 68 16 169/70 97 11/05/18 17:34 11/05/18 17:34 11/05/18 17:34 11/05/18 17:34 11/05/18 17:34 - Assessment and Plan (1) CAD (coronary artery disease) Current Visit: No Status: Chronic (2) Diabetes mellitus Current Visit: Yes Status: Chronic (3) NSTEMI (non-ST elevated myocardial infarction) Current Visit: Yes Status: Acute (4) Diarrhea Current Visit: No Status: Chronic (5) Acute kidney injury superimposed on chronic kidney disease Current Visit: Yes Status: Acute (6) Heart failure with preserved ejection fraction Current Visit: Yes Status: Acute - Time Spent with Patient Total time spent is greater than 50% in coordination of care (as documented) at patient's floor/unit and/or counseling patient: Internal Medicine: Result - Labs CBC & Chem 7: 11/05/18 00:51 11/05/18 00:51 Labs: Short CBC 11/04/18 11/05/18 Range/Units 18:18 00:51 WBC 7.2 7.8 (4.3-11.1) K/mcL Hgb 9.6 L 9.7 L (11.5-15.4) g/dL Hct 29.8 L 30.0 L (35.3-44.9) % Plt Count 179 178 (140-400) K/mcL Neutrophils # 4.1 (1.6-8.9) K/mcL BMP 11/05/18 00:51 Sodium 137 Potassium 4.0 Chloride 100 Carbon Dioxide 26 BUN 57 H Creatinine 2.45 H Glucose 344 H Calcium 8.8 Cardiac Enzymes 11/05/18 Range/Units 00:51 Troponin I 0.23 H* (< 0.04) ng/mL - ABG Interpretation ABG results: PT/INR, D-dimer PT 12.6 Seconds (9.4-12.1) H 11/04/18 18:18 - Attending Attestation I examined this patient and my medical decision-making was reviewed with the Resident Physician on 11/05/18. I agree with the documented findings, disposition and treatment plan as described except to the extent set forth below. Ms Wyatt is currently admitted for acute NSTEMI and acute renal failure. She remains moderate to high risk due to potential for worsening clinical status. Ms Wyatt is feeling OK at this time. No CP now. Having diarrhea but appears to be chronic. No SOB at this time Exam alert Comfortable resting in bed Mucus membranes dry Heart reg and not tachy No wheeze abd soft and nontender Moves all extremities I/P 1. Acute NSTEMI - on heparin and medical management for now 2. Acute renal failure - no clear etiology at this time. Fluids cautiously. Recheck in AM 3. CAD 4. Chronic diastolic heart failure 5. DM - uncontrolled 6. Chronic diarrhea Further diagnoses and plan as above. Further cardiac plan pending results tomorrow. <Everardo Soni - Last Filed: 11/05/18 17:35> (3) CAD (coronary artery disease) Qualifiers: Coronary Disease-Associated Artery/Lesion type: [place] artery [place] vs. 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 transplanted heart: [place] heart Associated angina: without angina Qualified Code(s): I25.10 - Atherosclerotic heart disease of [place] coronary artery without angina pectoris (2) Diabetes mellitus Qualifiers: Diabetes mellitus type: type 2 Diabetes mellitus long-term insulin use: with long-term use Diabetes mellitus complication status: with hyperglycemia Qualified Code(s): E11.65 - Type 2 diabetes mellitus with hyperglycemia; Z79.4 - FPC (current) use of insulin (4) Diarrhea Qualifiers: Diarrhea type: functional diarrhea Qualified Code(s): K59.1 - Functional diarrhea (6) Heart failure with preserved ejection fraction Qualifiers: Heart failure chronicity: chronic Qualified Code(s): I50.32 - Chronic diastolic (congestive) heart failure
[2018-11-05] MEDS: Latanoprost 2.5 ML BOTTLE LEFT EYE SCH (21:46)
[2018-11-05] MEDS: Insulin DETEMIR 100 UNIT/ML X5UNITS SQ SCH (21:47)
[2018-11-05] MEDS: Heparin 25,000 UNIT/250 ML D5W 25,000 UNIT/250 ML IV.SOLN IVC SCH (22:51)
[2018-11-06 01:15] LABS: Bilirubin,Urine Negative (Negative); Blood,Urine Large (Negative); Clarity,Urine Cloudy (Clear); Color,Urine Yellow (Yellow); Glucose,Urine (UA) 500 mg/dL (Normal); Ketones,Urine Negative (Negative); Leukocyte Esterase,Urine Small (Negative); Nitrite,Urine Negative (Negative); Protein,Urine 30 mg/dL (Neg-Trace); Urobilinogen,Urine Normal (Normal)
[2018-11-06 01:17] LABS: Hyaline Casts,Urine None Seen per lpf (None-Few); RBC,Urine 0-3 per hpf (0-3); Squamous Epithelial Cell,Urine Many per lpf (None-Few)
[2018-11-06 01:25] LABS: Protein/Creatinine Ratio,Urine 0.86 mg/mg (0.00-0.20); Sodium, Urine 20.7 mEq/L
[2018-11-06 01:28] LABS: Amorphous Sediment,Urine Few (Few); Bacteria,Urine Moderate per hpf (None-Few)
[2018-11-06] MEDS: 0.9 % Sodium Chloride 1,000 ML IVC SCH ×2 (05:52→17:17)
[2018-11-06] MEDS: Insulin LISPRO 300 UNITS/3 ML VIAL SQ SCH ×7 (08:00→20:35)
[2018-11-06] MEDS: Hydrocortisone 10 MG TABLET PO SCH (08:01)
[2018-11-06] MEDS: Cholecalciferol (D-3) 1,000 UNIT TABLET PO SCH (08:02)
[2018-11-06] MEDS: Metoprolol XL (24 HR) Succ 50 MG TAB.ER.24H PO SCH (08:02)
[2018-11-06] MEDS: Loratadine 10 MG TABLET PO SCH (08:02)
[2018-11-06] MEDS: Aspirin 81 MG TAB.CHEW PO SCH (08:02)
[2018-11-06] MEDS: Lactobacillus 1 EACH CAP.SPRINK PO SCH ×2 (08:02→20:42)
[2018-11-06] MEDS: Fluticasone Propionate Nasal 50 MCG/SPRAY BOTTLE NS SCH (08:02)
--- NOTE | 2018-11-06 08:09 | Internal Med Progress Note ---
<René Caraballo - Last Filed: 11/06/18 17:50> Hospitalist Progress Note - Encounter Date of Encounter: 11/06/18 - Exam Vitals: Temp Pulse Resp BP Pulse Ox 97.5 F L 64 16 168/81 100 11/06/18 15:29 11/06/18 15:29 11/06/18 15:29 11/06/18 15:29 11/06/18 15:29 - Assessment and Plan (1) CAD (coronary artery disease) Current Visit: No Status: Chronic (2) Diabetes mellitus Current Visit: Yes Status: Chronic (3) NSTEMI (non-ST elevated myocardial infarction) Current Visit: Yes Status: Acute (4) Diarrhea Current Visit: No Status: Chronic (5) Acute kidney injury superimposed on chronic kidney disease Current Visit: Yes Status: Acute (6) Heart failure with preserved ejection fraction Current Visit: Yes Status: Acute - Time Spent with Patient Total time spent is greater than 50% in coordination of care (as documented) at patient's floor/unit and/or counseling patient: Internal Medicine: Result - Labs CBC & Chem 7: 11/06/18 08:38 11/06/18 08:38 Labs: Short CBC 11/06/18 Range/Units 08:38 WBC 10.1 (4.3-11.1) K/mcL Hgb 9.9 L (11.5-15.4) g/dL Hct 30.9 L (35.3-44.9) % Plt Count 201 (140-400) K/mcL Neutrophils # 4.5 (1.6-8.9) K/mcL BMP 11/06/18 08:38 Sodium 141 Potassium 3.4 L Chloride 106 Carbon Dioxide 26 BUN 42 H Creatinine 1.59 H Glucose 50 L Calcium 8.6 Urine 11/05/18 Range/Units 23:00 Urine Color Yellow (Yellow) Urine Clarity Cloudy A (Clear) Urine pH 6.0 (5.0-8.0) pH Units Ur Specific [place] 1.010 (1.010-1.025) Urine Protein 30 H (Neg-Trace) mg/dL Urine Glucose (UA) 500 H (Normal) mg/dL - ABG Interpretation ABG results: PT/INR, D-dimer PT 12.6 Seconds (9.4-12.1) H 11/04/18 18:18 - Impressions Impressions Retroperitoneum Ultrasound 11/05/18 18:00 IMPRESSION: Normal sonographic appearance of the kidneys and incompletely distended urinary bladder. D/ / Everardo Garner MD / Everardo Garner MD Interpreting Provider: Everardo Garner MD Consult Discharge Plan - Plan Referrals: Cindy Yeager, [Primary Care Provider] - - Attending Attestation I examined this patient and my medical decision-making was reviewed with the Resident Physician on 11/06/18. I agree with the documented findings, disposition and treatment plan as described except to the extent set forth be low. Ms Wyatt is currently admitted for acute NSTEMI. She remains moderate to high risk due to potential for worsening clinical status. Ms Wyatt is up in chair. She is questioning a lot of things going on with her. No fever or chills. No CP or SOB at this time. Exam Alert Comfortable Mucus membranes dry Heart not tachy No wheeze abd soft Moves all extremities I/P 1. Acute NSTEMI - stop heparin tonight. Close cardiology follow up 2. JESSICA - slowly improving. Further diagnoses and plan as above. Anticipate d/c tomorrow if stable. <Zaire Gómez - Last Filed: 11/06/18 19:03> Hospitalist Progress Note - Encounter Date of Encounter: 11/06/18 Time of Encounter: 08:25 - Subjective Interval History: Patient seen and examined. No acute overnight events. Continues to deny chest pain/pressure or dyspnea. No abdominal pain, N/V, or diarrhea. Her only complaint today is that she is uncomfortable in bed, but this improved with repositioning. Her UOP is still not well documented. - Exam Vitals: Temp Pulse Resp BP Pulse Ox 98.5 F 65 16 142/56 98 11/06/18 07:33 11/06/18 07:33 11/06/18 07:33 11/06/18 07:33 11/06/18 07:33 Exam: GEN: No acute distress, A&O3 HEAD: Atraumatic, normocephalic EYES: Pupils symmetric, sclera white, conjunctiva pink HEART: RRR, normal S1 and S2, no murmurs LUNGS: Clear to auscultation bilaterally, no wheezes, rhonchi, or crackles ABD: Soft, nontender, nondistended, bowel sounds present EXT: Chronic depedent edema bilaterally with trace pitting edema bilaterally, pulses 2/4 NEURO: No focal deficits, cooperative with exam - Assessment and Plan (1) NSTEMI (non-ST elevated myocardial infarction) Current Visit: Yes Status: Acute Assessment and Plan: Initial troponin 0.35 at [facility] ED, repeat is down-trending now to 0.23 Patient is currently asymptomatic but has had prior upper abdominal pressure that has since resolved EKG showed NSR with non-diagnostic ST depressions in V2-6, consistent with prior EKGs Repeat EKG showed NSR with non-specific ST changes - mild improvement in ST changes from prior Patient was placed on heparin drip and cardiology consult was held due to prior refusal of cardiology interventions in the past At this time she is only wanting LHC if absolutely necessary Heparin drip will be stopped this evening for completion of 48 hours, patient remains asymptomatic Repeat echo with EF 60% and no wall motion abnormalities Discussed with patient about out-patient cardiology follow-up which she is agreeable to (2) Acute kidney injury superimposed on chronic kidney disease Current Visit: Yes Status: Acute Assessment and Plan: Suspected oliguric JESSICA on CKD stage 3 - baseline SCr 1.0-1.2 and GFR 40's Likely secondary to dehydration Renal function improving with IV hydration Renal US without signs of hydronephrosis Will avoid nephrotoxins as able - hold SAMUEL and gabapentin at this time (3) Type 1 diabetes mellitus Current Visit: Yes Status: Chronic Assessment and Plan: Diabetes in poor control Recent addition of basal and prandial insulin + SSI Will monitor today and make adjustments if needed Goal glucose 140-180 (4) Dehydration Current Visit: Yes Status: Acute Assessment and Plan: Recent poor PO intake and diarrhea Diarrhea has now resolved Continue IV hydration at this time (5) Heart failure with preserved ejection fraction Current Visit: Yes Status: Acute Assessment and Plan: Not in acute exacerbation Limited echo stable from previous (6) CAD (coronary artery disease) Current Visit: No Status: Chronic Assessment and Plan: Known CAD - Report of prior stent placed Of note, she did refuse LHC in August 2018 after NSTEMI and was treated medically with heparin Continue plavix, BB, start ASA which patient wasn't on. Hold SAMUEL. Patient has allergy to statin Will have the patient follow-up with cardiology once discharged (7) Hypertension Current Visit: Yes Status: Chronic Assessment and Plan: Relatively stable, will restart meds once renal function improves (8) Elevated lactic acid level Current Visit: Yes Status: Resolved DVT Prophylaxis: on heparin ggt, will transition to SQ heparin - Time Spent with Patient Total time spent is greater than 50% in coordination of care (as documented) at patient's floor/unit and/or counseling patient: Internal Medicine: Result - Labs CBC & Chem 7: 11/06/18 08:38 11/06/18 08:38 Labs: Urine 11/05/18 Range/Units 23:00 Urine Color Yellow (Yellow) Urine Clarity Cloudy A (Clear) Urine pH 6.0 (5.0-8.0) pH Units Ur Specific [place] 1.010 (1.010-1.025) Urine Protein 30 H (Neg-Trace) mg/dL Urine Glucose (UA) 500 H (Normal) mg/dL - ABG Interpretation ABG results: PT/INR, D-dimer PT 12.6 Seconds (9.4-12.1) H 11/04/18 18:18 - Impressions Impressions Retroperitoneum Ultrasound 11/05/18 18:00 IMPRESSION: Normal sonographic appearance of the kidneys and incompletely distended urinary bladder. D/ / Everardo Garner MD / Everardo Garner MD Interpreting Provider: Everardo Garner MD <René Caraballo - Last Filed: 11/06/18 17:50> (1) CAD (coronary artery disease) Qualifiers: Coronary Disease-Associated Artery/Lesion type: [place] artery [place] vs. transplanted heart: menominee heart Associated angina: without angina Qualified Code(s): I25.10 - Atherosclerotic heart disease of menominee coronary artery without angina pectoris (2) Diabetes mellitus Qualifiers: Diabetes mellitus type: type 2 Diabetes mellitus half-way insulin use: with termite control technician use Diabetes mellitus complication status: with hyperglycemia Qualified Code(s): E11.65 - Type 2 diabetes mellitus with hyperglycemia; Z79.4 - residential (current) use of insulin (4) Diarrhea Qualifiers: Diarrhea type: functional diarrhea Qualified Code(s): K59.1 - Functional mary rrhea (6) Heart failure with preserved ejection fraction Qualifiers: Heart failure chronicity: chronic Qualified Code(s): I50.32 - Chronic [place] (congestive) heart failure <Zaire Gómez - Last Filed: 11/06/18 19:03> (3) Type 1 diabetes mellitus Qualifiers: Diabetes mellitus complication status: with hyperglycemia Qualified Code(s): E10.65 - Type 1 diabetes mellitus with hyperglycemia (5) Heart failure with preserved ejection fraction Qualifiers: Heart failure chronicity: chronic Qualified Code(s): I50.32 - Chronic diastolic (congestive) heart failure (6) CAD (coronary artery disease) Qualifiers: Coronary Disease-Associated Artery/Lesion type: [place] artery [place] vs. transplanted heart: menominee heart Associated angina: without angina Qualified Code(s): I25.10 - Atherosclerotic heart disease of menominee coronary artery without angina pectoris (7) Hypertension Qualifiers: Hypertension type: essential hypertension Qualified Code(s): I10 - Essential (primary) hypertension
[2018-11-06 08:53] LABS: Basophils # 0.1 K/mcL (0.0-0.2); Basophils % 0.6 %; Eosinophils % 10.3 %; Hematocrit 30.9 % (35.3-44.9); Hemoglobin 9.9 g/dL (11.5-15.4); Immature Granulocytes % 2.2 % (0-4); Lymphocytes # 3.6 K/mcL (0.6-4.6); Lymphocytes % 35.5 %; Mean Corpuscular Volume 93.6 fL (83.0-100.0); Mean Platelet Volume 10.6 fL (9.4-12.4); Monocytes # 0.7 K/mcL (0.0-1.3); Monocytes % 6.9 %; Neutrophils # 4.5 K/mcL (1.6-8.9); Platelet Count 201 K/mcL (140-400); Red Cell Distribution Width 14.9 % (11.5-14.5); Segmented Neutrophils % 44.5 %
[2018-11-06 09:10] LABS: Calcium 8.6 mg/dL (8.6-10.3); Potassium 3.4 mEq/L (3.5-5.1)
[2018-11-06 09:23] LABS: Thyroid Stimulating Hormone 0.556 mcIU/mL (0.340-5.600)
[2018-11-06] MEDS: Multivit/Ca/Min/Fe/FA 1 TAB TABLET PO SCH (17:18)
[2018-11-06] MEDS: Latanoprost 2.5 ML BOTTLE LEFT EYE SCH (20:55)
[2018-11-06] MEDS: Insulin DETEMIR 100 UNIT/ML X5UNITS SQ SCH (21:01)
[2018-11-06] MEDS: Heparin 25,000 UNIT/250 ML D5W 25,000 UNIT/250 ML IV.SOLN IVC SCH (22:04)
[2018-11-07 04:29] LABS: Hematocrit 29.1 % (35.3-44.9); Hemoglobin 9.5 g/dL (11.5-15.4); Mean Corpuscular HGB Conc 32.6 g/dL (31.6-35.5); Mean Corpuscular Hemoglobin 30.8 pg (28.0-33.3); Mean Corpuscular Volume 94.5 fL (83.0-100.0); Mean Platelet Volume 11.1 fL (9.4-12.4); Platelet Count 165 K/mcL (140-400); Red Blood Count 3.08 M/mcL (3.82-4.97); Red Cell Distribution Width 15.1 % (11.5-14.5)
[2018-11-07 04:51] LABS: Calcium 8.3 mg/dL (8.6-10.3); Potassium 4.3 mEq/L (3.5-5.1)
[2018-11-07] MEDS ORDERED: *HR* Heparin 5,000 UNIT/ML VIAL SQ SCH (06:00)
[2018-11-07] MEDS: 0.9 % Sodium Chloride 1,000 ML IVC SCH (06:08)
[2018-11-07 07:39] VITALS: BP 170/75
[2018-11-07] MEDS: Lactobacillus 1 EACH CAP.SPRINK PO SCH (08:47)
[2018-11-07] MEDS: Insulin LISPRO 300 UNITS/3 ML VIAL SQ SCH ×4 (08:47→12:08)
[2018-11-07] MEDS: Fluticasone Propionate Nasal 50 MCG/SPRAY BOTTLE NS SCH (08:47)
[2018-11-07] MEDS: Aspirin 81 MG TAB.CHEW PO SCH (08:47)
[2018-11-07] MEDS: Loratadine 10 MG TABLET PO SCH (08:47)
[2018-11-07] MEDS: Hydrocortisone 10 MG TABLET PO SCH (08:47)
[2018-11-07] MEDS: Metoprolol XL (24 HR) Succ 50 MG TAB.ER.24H PO SCH (08:47)
[2018-11-07] MEDS: Cholecalciferol (D-3) 1,000 UNIT TABLET PO SCH (08:47)
[2018-11-07] MEDS ORDERED: 0.9 % Sodium Chloride 1,000 ML IVC SCH (10:31)
[2018-11-07 13:21] LABS: Calcium 8.4 mg/dL (8.6-10.3); Potassium 3.9 mEq/L (3.5-5.1)
--- NOTE | 2018-11-07 13:55 | Discharge Summary ---
<Zaire Gómez Gertrudis - Last Filed: 11/07/18 13:51> - NOTES TO OUTPATIENT PROVIDER Notes to Outpatient Provider: Please recheck renal function in follow-up in 3-5 days. Patient also is needing follow-up with cardiology as an out-patient Date of Encounter: 11/07/18 Time of Encounter: 13:51 - Discharge Diagnosis (1) NSTEMI (non-ST elevated myocardial infarction) Priority: Primary Status: Acute (2) Acute kidney injury superimposed on chronic kidney disease Priority: Secondary Status: Acute (3) Type 1 diabetes mellitus Priority: Secondary Status: Chronic Qualifiers: Diabetes mellitus complication status: with hyperglycemia Qualified Code(s): E10.65 - Type 1 diabetes mellitus with hyperglycemia (4) Dehydration Priority: Secondary Status: Acute (5) Heart failure with preserved ejection fraction Priority: Secondary Status: Acute Qualifiers: Heart failure chronicity: chronic Qualified Code(s): I50.32 - Chronic diastolic (congestive) heart failure (6) CAD (coronary artery disease) Priority: Secondary Status: Chronic Qualifiers: Coronary Disease-Associated Artery/Lesion type: [place] artery [place] vs. transplanted heart: [place] heart Associated angina: without angina Qualified Code(s): I25.10 - Atherosclerotic heart disease of [place] coronary artery without angina pectoris (7) Hypertension Priority: Secondary Status: Chronic Qualifiers: Hypertension type: essential hypertension Qualified Code(s): I10 - Essential (primary) hypertension (8) Elevated lactic acid level Priority: Secondary Status: Resolved Hospital course: Ms. Wyatt is a 72 year old female Discharge discussed with: patient - Time Spent with Patient Total time spent providing and/or coordinating discharge services: - Discharge Medications Prescriptions: New Aspirin 81 mg PO DAILY tab.chew Continued Clopidogrel [Plavix] 75 mg PO DAILY Metoprolol XL (24 HR) Succ [Toprol Xl] 50 mg PO DAILY Hydrocortisone [Cortef] 5 mg PO QAM Levothyroxine [Synthroid] 88 mcg PO QAM Latanoprost [Xalatan] 1 drop LEFT EYE HS Losartan Potassium [Cozaar] 50 mg PO QAM Ferrous Sulfate [Iron] 325 mg PO BID Bumetanide [Bumex] 1 mg PO DAILY Fluticasone Propionate Nasal [Flonase] 1 spray NS DAILY Loratadine [Claritin] 10 mg PO QAM Multivit-Min/Iron/Folic/Lutein [Centrum Silver Women Tablet] 1 tab PO QPM Albuterol Neb [Proventil Neb] 2.5 mg IH Q4H L. Acidophilus/Pectin, [place] [Acidophilus Capsule] 1 cap PO BID Calcium Carbonate/Vitamin D3 [Calcium 600-Vit D3 200 Tablet] 1 tab PO BID Gabapentin [Neurontin] 300 mg PO BID Nitroglycerin [Nitrostat] 0.4 mg SL Q5M PRN PRN Reason: Chest Pain Nystatin POWDER [Nystop] 1 appl TP BID Insulin ASPART [Novolog Flexpen] 0 units SQ TID Insulin DETEMIR [Levemir Flextouch] 5 units SQ HS [place]-3/Dha/Epa/Fish Oil [Fish Oil 1,000 mg Softgel] 1,000 mg PO BID Cholecalciferol (Vitamin D3) [Dialyvite Vitamin D] 5,000 units PO DAILY Insulin DETEMIR [Levemir Flextouch] 42 units SQ QAM Allopurinol [Zyloprim 100 MG] 100 mg PO DAILY Home Medications: Clopidogrel [Plavix] 75 mg PO DAILY 08/14/16 [History] Hydrocortisone [Cortef] 5 mg PO QAM 08/14/16 [History] Levothyroxine [Synthroid] 88 mcg PO QAM 08/14/16 [History] Metoprolol XL (24 HR) Succ [Toprol Xl] 50 mg PO DAILY 08/14/16 [History] Latanoprost [Xalatan] 1 drop LEFT EYE HS 11/13/16 [History] Losartan Potassium [Cozaar] 50 mg PO QAM 03/11/17 [History] Bumetanide [Bumex] 1 mg PO DAILY 07/23/17 [History] Ferrous Sulfate [Iron] 325 mg PO BID 07/23/17 [History] Albuterol Neb [Proventil Neb] 2.5 mg IH Q4H 09/10/18 [History] Calcium Carbonate/Vitamin D3 [Calcium 600-Vit D3 200 Tablet] 1 tab PO BID 09/10/18 [History] Fluticasone Propionate Nasal [Flonase] 1 spray NS DAILY 09/10/18 [History] L. Acidophilus/Pectin, [place] [Acidophilus Capsule] 1 cap PO BID 09/10/18 [History] Loratadine [Claritin] 10 mg PO QAM 09/10/18 [History] Multivit-Min/Iron/Folic/Lutein [Centrum Silver Women Tablet] 1 tab PO QPM 09/10/18 [History] Gabapentin [Neurontin] 300 mg PO BID 10/01/18 [History] Nitroglycerin [Nitrostat] 0.4 mg SL Q5M PRN 10/01/18 [History] Nystatin POWDER [Nystop] 1 appl TP BID 10/01/18 [History] Allopurinol [Zyloprim 100 MG] 100 mg PO DAILY 11/04/18 [History] Cholecalciferol (Vitamin D3) [Dialyvite Vitamin D] 5,000 units PO DAILY 11/04/18 [History] Insulin ASPART [Novolog Flexpen] 0 units SQ TID 11/04/18 [History] Insulin DETEMIR [Levemir Flextouch] 5 units SQ HS 11/04/18 [History] Insulin DETEMIR [Levemir Flextouch] 42 units SQ QAM 11/04/18 [History] [place]-3/Dha/Epa/Fish Oil [Fish Oil 1,000 mg Softgel] 1,000 mg PO BID 11/04/18 [History] Aspirin 81 mg PO DAILY tab.chew 11/07/18 [Rx] Allergies/Adverse Reactions: Allergy/AdvReac Type Severity Reaction Status Date / Time adhesive tape Allergy Rash Verified 01/21/18 14:23 insulin isophane (NPH) Allergy Rash Verified 01/21/18 14:23 [From Humulin 70/30] Insulin Regular Allergy Rash Verified 01/21/18 14:23 [From Humulin 70/30] isosorbide [From Imdur] Allergy Rash Verified 01/21/18 14:23 lisinopril Allergy Anaphylaxis Verified 01/21/18 14:23 [id number]-[id number]-Xbi Reductase Allergy Muscle Pain Verified 01/21/18 14:23 Inhibitor [Statins] Date of admission: 11/04/18 18:07 Primary care physician: Arielle Ma Consults: 11/05/18 09:14 Consult to Booster Operator [CONS] Routine Reason for SW Consult: From F Discharging clinician: Zaire Gómez Anticipated date of discharge: 11/07/18 - Constitutional Vitals: Temp Pulse Resp BP Pulse Ox 98.2 F 68 15 170/75 97 11/07/18 07:30 11/07/18 07:30 11/07/18 07:30 11/07/18 07:30 11/07/18 07:30 Exam: GEN: No acute distress, A&O3 HEAD: Atraumatic, normocephalic EYES: Pupils symmetric, sclera white, conjunctiva pink HEART: RRR, normal S1 and S2, no murmurs LUNGS: Clear to auscultation bilaterally, no wheezes, rhonchi, or crackles ABD: Soft, nontender, nondistended, bowel sounds present EXT: Chronic depedent edema bilaterally with trace pitting edema bilaterally, pulses 2/4 NEURO: No focal deficits, cooperative with exam - Patient Status Disposition: Transfer SNF Condition: Fair Overall status at discharge: patient is progressing back to baseline - Discharge Instructions Instructions: Diabetes Mellitus Type 2 in Adults (DC), Chronic Hypertension (DC) Follow Up With: Cindy Yeager DO [Primary Care Provider] - Froilan Heaton DO [Partnered Physician] - Additional Instructions: Please resume home medications as before Please follow-up with cardiology as an out-patient Please follow-up with your primary care physician within 1 week - Diet and Activity Activity: increase activity as tolerated Diet: diabetic diet <René Caraballo - Last Filed: 11/07/18 16:16> Date of Encounter: 11/07/18 - Discharge Diagnosis (1) CAD (coronary artery disease) Status: Chronic Qualifiers: Coronary Disease-Associated Artery/Lesion type: [place] artery [place] vs. transplanted heart: [place] heart Associated angina: without angina Qualified Code(s): I25.10 - Atherosclerotic heart disease of [place] coronary artery without angina pectoris (2) Diabetes mellitus Status: Chronic Qualifiers: Diabetes mellitus type: type 2 Diabetes mellitus assisted insulin use: with long term care administrator use Diabetes mellitus complication status: with hyperglycemia Qualified Code(s): E11.65 - Type 2 diabetes mellitus with hyperglycemia; Z79.4 - nursing home (current) use of insulin (3) NSTEMI (non-ST elevated myocardial infarction) Status: Acute (4) Diarrhea Priority: Secondary Status: Chronic Qualifiers: Diarrhea type: functional diarrhea Qualified Code(s): K59.1 - Functional diarrhea (5) Acute kidney injury superimposed on chronic kidney disease Status: Acute (6) Heart failure with preserved ejection fraction Status: Acute Qualifiers: Heart failure chronicity: chronic Qualified Code(s): I50.32 - Chronic diastolic (congestive) heart failure Hospital course: Ms. Wyatt is a 72 year old female - Time Spent with Patient Total time spent providing and/or coordinating discharge services: 37min Date of admission: 11/04/18 18:07 Primary care physician: Arielle Ma Consults: 11/05/18 09:14 Consult to Booster Operator [CONS] Routine Reason for SW Consult: From ECF - Constitutional Vitals: Temp Pulse Resp BP Pulse Ox 98.2 F 68 15 170/75 97 11/07/18 07:30 11/07/18 07:30 11/07/18 07:30 11/07/18 07:30 11/07/18 07:30 - Attending Attestation I examined this patient and my medical decision-making was reviewed with the Resident Physician on 11/07/18. I agree with the documented findings, disposition and treatment plan as described except to the extent set forth below. Ms Wyatt has been admitted due to NSTEMI and renal failure. She received 48hours of heparin and has no further symptoms. She is now afebrile and is ready to return to SNF. Exam alert comfortable Mucus membranes moist Heart not tachy Lungs clear Plan D/C to SNF.
--- NOTE | 2018-11-07 13:59 | Physician Discharge Referral ---
ExtendedCare Referral Info Transfer To: SNF Provider in Charge: Phone Banker Institutional Level of Care: Skilled - Diagnosis (1) NSTEMI (non-ST elevated myocardial infarction) Priority: Primary Status: Acute (2) Acute kidney injury superimposed on chronic kidney disease Priority: Secondary Status: Acute (3) Type 1 diabetes mellitus Priority: Secondary Status: Chronic (4) Dehydration Priority: Secondary Status: Acute (5) Heart failure with preserved ejection fraction Priority: Secondary Status: Acute (6) CAD (coronary artery disease) Priority: Secondary Status: Chronic (7) Hypertension Priority: Secondary Status: Chronic (8) Elevated lactic acid level Priority: Secondary Status: Resolved - Transfer Medications Home Medications: Clopidogrel [Plavix] 75 mg PO DAILY 08/14/16 [History] Hydrocortisone [Cortef] 5 mg PO QAM 08/14/16 [History] Levothyroxine [Synthroid] 88 mcg PO QAM 08/14/16 [History] Metoprolol XL (24 HR) Succ [Toprol Xl] 50 mg PO DAILY 08/14/16 [History] Latanoprost [Xalatan] 1 drop LEFT EYE HS 11/13/16 [History] Losartan Potassium [Cozaar] 50 mg PO QAM 03/11/17 [History] Bumetanide [Bumex] 1 mg PO DAILY 07/23/17 [History] Ferrous Sulfate [Iron] 325 mg PO BID 07/23/17 [History] Albuterol Neb [Proventil Neb] 2.5 mg IH Q4H 09/10/18 [History] Calcium Carbonate/Vitamin D3 [Calcium 600-Vit D3 200 Tablet] 1 tab PO BID 09/10/18 [History] Fluticasone Propionate Nasal [Flonase] 1 spray NS DAILY 09/10/18 [History] L. Acidophilus/Pectin, [place] [Acidophilus Capsule] 1 cap PO BID 09/10/18 [History] Loratadine [Claritin] 10 mg PO QAM 09/10/18 [History] Multivit-Min/Iron/Folic/Lutein [Centrum Silver Women Tablet] 1 tab PO QPM 09/10/18 [History] Gabapentin [Neurontin] 300 mg PO BID 10/01/18 [History] Nitroglycerin [Nitrostat] 0.4 mg SL Q5M PRN 10/01/18 [History] Nystatin POWDER [Nystop] 1 appl TP BID 10/01/18 [History] Allopurinol [Zyloprim 100 MG] 100 mg PO DAILY 11/04/18 [History] Cholecalciferol (Vitamin D3) [Dialyvite Vitamin D] 5,000 units PO DAILY 11/04/18 [History] Insulin ASPART [Novolog Flexpen] 0 units SQ TID 11/04/18 [History] Insulin DETEMIR [Levemir Flextouch] 5 units SQ HS 11/04/18 [History] Insulin DETEMIR [Levemir Flextouch] 42 units SQ QAM 11/04/18 [History] [place]-3/Dha/Epa/Fish Oil [Fish Oil 1,000 mg Softgel] 1,000 mg PO BID 11/04/18 [History] Aspirin 81 mg PO DAILY tab.chew 11/07/18 [Rx] Allergies/Adverse Reactions: Allergy/AdvReac Type Severity Reaction Status Date / Time adhesive tape Allergy Rash Verified 01/21/18 14:23 insulin isophane (NPH) Allergy Rash Verified 01/21/18 14:23 [From Humulin 70/30] Insulin Regular Allergy Rash Verified 01/21/18 14:23 [From Humulin 70/30] isosorbide [From Imdur] Allergy Rash Verified 01/21/18 14:23 lisinopril Allergy Anaphylaxis Verified 01/21/18 14:23 Yzmoljh-Zuo-Zsr Reductase Allergy Muscle Pain Verified 01/21/18 14:23 Inhibitor [Statins] - Respiratory Orders Smoking Cessation: Smoking cessation has been advised. For more information, call the [place] Tobacco Quit Line at 3-298-PVUC-NOW. - Advance Directives Code Status: Full Code - Rehabiliation Orders Rehab Potential: Fair Rehab Orders: Evaluation for Physical Therapy, Evaluation for Occupational Therapy - Diet Orders Cardiac (And diabetic) CERTIFICATION: I certify that the transfer of the above named patient to an Extended Care Facility is necessary for the continuing treatment of the diagnosis listed. The above information is true and accurate reflection of patient's current condition. Confidential - Redisclosure prohibited without a patient's written consent.
== END 2018-11-07 15:44 | DRG 281 ==
LOC: 2NENU → SUATTDRO 18:07
PROVIDERS: ADMIT Internal Medicine Nephrology; ATTEND Internal Medicine